=== PATIENT | male | born 1955 | race Caucasian/White ===

== ENCOUNTER 2025-02-19 13:02 | Inpatient (IN) | payer MEDICARE ==
[~2025-02-19] VITALS: Ht 182.9 cm; Wt 93.9 kg
[~2025-02-19 13:02] MED LIST: LISI10TA24 PO; PRED20TA3 PO
[2025-02-19 13:48] LABS: IMMATURE GRANULOCYTE ABSOLUTE 0.23 K/uL (0-1); NUCLEATED RED BLOOD CELLS 0.0 % (0.0-0.19); PLATELET COUNT (AUTO) 256 K/uL (130-400); RED BLOOD CELL COUNT(AUTO) 3.72 MIL/uL (4.50-6.20); RED CELL DISTRIBUTION WIDTH 16.9 % (11.0-15.5); WHITE BLOOD COUNT (AUTO) 6.8 K/uL (4.8-10.8)
[2025-02-19 13:57] LABS: CREATININE 1.3 mg/dL (0.5-1.3); GLOMERULAR FILTR. RATE CALC 60.0 mL/min (>90); GLUCOSE,RANDOM 145.0 mg/dL (70-105); SODIUM SERUM 141.0 mmol/L (136-145); UREA NITROGEN, BLOOD 24.0 mg/dL (7-18)
[2025-02-19] MEDS ORDERED: VANCOMYCIN KIT 1 GM/250 ML IV.KIT IV ONE (14:00)
[2025-02-19 14:02] LABS: ASPARTATE AMINOTRANSFERASE 20.0 U/L (10-37); TOTAL PROTEIN, SERUM 6.5 g/dL (6.0-8.3)
[2025-02-19 14:19] LABS: ERYTHROCYTE SEDIMENTATION RATE 38 MM/HR (0-20)
--- NOTE | 2025-02-19 15:32 | HMCIMG ---
EXAM: CR left foot, 3 View. CLINICAL HISTORY: infection COMPARISON: None provided. FINDINGS: BONES: No acute fracture or aggressive appearing osseous lesion. JOINTS: Mild degenerative joint disease changes first metatarsal phalangeal joint no dislocation. SOFT TISSUES: Dorsal soft tissue swelling IMPRESSION: 1. No acute osseous injury. 2. Mild degenerative joint disease of the first metatarsophalangeal joint. 3. Dorsal soft tissue swelling. /[place]
[2025-02-19] MEDS ORDERED: VANCOMYCIN PROTOCOL PER PHARMACY IV SCH (16:00)
--- NOTE | 2025-02-19 16:53 | HP ---
[facility] HISTORY AND PHYSICAL Date of Service: Feb 19, 2025 Time of Service: 16:38 HISTORY OF PRESENT ILLNESS: [Mr. Caleb Reina is a 69-year-old male who presents to the emergency department with complaints of severe pain and necrosis of the left fifth toe. The patient reports that the pain began approximately eight days ago, initially attributing it to a possible gout attack. Several days later, he stubbed his left pinky toe, after which he noticed progressive discoloration and necrosis of the toe, accompanied by worsening pain, which he rates as 30/10 in severity. He has a significant past medical history of myelodysplastic syndrome, diagnosed one year ago, and is currently under the care of Dr. Hubert Simms. He receives monthly chemotherapy but canceled his scheduled treatment today due to his current condition. The patient also reports that he has not refilled two of his regular medications after returning from a recent vacation. Over the past week, he has observed increasing swelling, redness, and in flammation of the left lower extremity. He denies current fever but endorses intermittent chills and subjective low-grade fevers over the past week. He denies any other complaints aside from the severe pain in the affected toe. In the emergency department, an X-ray of the left foot was performed, revealing soft tissue swelling, no acute osseous injury, mild degenerative changes of the first metatarsophalangeal joint, and dorsal tissue swelling. Evaluation noted plantar surface with black necrotic tissue/eschar. Surrounding tissue is red. Periwound is mild erythematous with dry and scaly. He has been referred to the hospitalist service for further evaluation and management. ] REVIEW OF SYSTEMS CONSTITUTIONAL: Denies fevers, chills, or night sweats. No unintentional weight loss reported. NEUROLOGICAL: Denies headache, amaurosis fugax, motor weakness, sensory deficit, vertigo/spinning sensation, gait abnormalities, or tremors. ENT: No hearing loss, otalgia, otorrhea, rhinitis, rhinorrhea, hoarseness, or sore throat. CARDIOVASCULAR: Denies any exertional angina, dyspnea on exertion, orthopnea, paroxysmal nocturnal dyspnea, palpitations, life-threatening arrhythmias, claudication. PULMONARY: Denies any shortness of breath, cough, phlegm/sputum, hemoptysis, pleuritic chest pain. SLEEP: Denies morning headaches, daytime somnolence or napping. Denies difficulty falling asleep, staying asleep, waking from sleep. Denies knowledge of snoring. GASTROINTESTINAL: Denies any type of dysphagia to either liquids or solids. Denies nausea, vomiting, pyrosis, early satiety, abdominal pain, diarrhea, constipation, or changes in stool consistency or caliber. Denies coffee-ground emesis, hematemesis, hematochezia, or melanotic stools. GENITOURINARY: Denies frequency, urgency, nocturia, hematuria or incontinence (Storage/Irritative symptoms.) Low urinary stream, straining to void, urinary intermittency or hesitancy, splitting of the voiding stream, terminal dribbling. ENDOCRINOLOGIC: Denies polyuria, polydipsia, polyphagia or heat/cold intolerances. HEMATOLOGIC: Denies thrombophilia/previous clots, or coagulopathy/bleeding disorders. ONCOLOGIC: Denies personal history of malignancy. DERMATOLOGIC: Denies rashes or pruritus. PSYCHIATRIC: Denies any suicidal or homicidal ideation. Denies hallucinations. PAST MEDICAL HISTORY: [MDS, Gout, HTN ] PAST SURGICAL HISTORY: [bilat thumb surgery from traum ] PAST SOCIAL HISTORY: [Patient drinks alcohol. Denies tobacco and illicit drug use. Patient lives in the [place]. He is under the care of Dr. Simms and currently on chemotherapy for his MDS ] FAMILY HISTORY: [Noncontributory ] Coded Allergies: Iodinated Contrast Media (Unverified Allergy, Unknown, 03/08/24) PHYSICAL EXAM GENERAL APPEARANCE: The patient is awake, alert, and oriented, in no acute cardiopulmonary distress. NEUROLOGICAL: Cranial nerves II-XII grossly intact. Motor is 5/5 in bilateral upper and lower extremities proximal to distal. No sensory deficits. HEENT: Face is symmetric. Pupils are equal and reactive. Extraocular movements are intact. NECK: Supple. No JVD. No thyromegaly. No submental, submandibular, pre- /postauricular, occipital or supraclavicular lymphadenopathy. CHEST: Normal chest expansion. No Telemetry. LUNGS: Absence of any rales, rhonchi or any wheezing. CARDIOVASCULAR: Regular. S1 and S2 normal. No appreciable rubs, murmurs or gallops. ABDOMEN: Soft, nontender, and nondistended. There is no rebound, voluntary guarding, or rigidity. : Deferred. No Swanson. EXTREMITIES: Non-edematous and not cyanotic. No clubbing. Good capillary refill. SKIN: No skin breakdown. Vital Sign (Last 24 Hours) 02/19/25 13:03 Temp 97.7 Pulse 70 Resp 18 B/P (MAP) 157/74 Pulse Ox 96 O2 Delivery Room Air LABS: Laboratory: Test 02/19/25 13:37 Range/Units White Blood Count 6.8 4.8-10.8 K/uL Red Blood Count 3.72 L 4.50-6.20 MIL/uL Hemoglobin 12.4 L 14.0-18.0 g/dL Hematocrit 39.2 L 42-54 % Mean Corpuscular Volume 105.4 H 79-99 fL Mean Corpuscular Hemoglobin 33.3 H 27.0-33.0 pg Mean Corpuscular Hemoglobin Concent 31.6 L 32.0-36.0 g/dL Red Cell Distribution Width 16.9 H 11.0-15.5 % Platelet Count 256 130-400 K/uL Mean Platelet Volume 11.0 H 7.5-10.5 fL Immature Granulocyte % (Auto) 3.4 H 0-1 % Neutrophils (%) (Auto) 76.5 40.0-77.0 % Lymphocytes (%) (Auto) 7.9 L 21.0-51.0 % Monocytes (%) (Auto) 11.6 3.0-13.0 % Eosinophils (%) (Auto) 0.3 0.0-8.0 % Basophils (%) (Auto) 0.3 0.0-5.0 % Neutrophils # (Auto) 5.2 1.8-7.7 K/uL Lymphocytes # (Auto) 0.5 L 1.0-4.8 K/uL Monocytes # (Auto) 0.8 0.1-1.0 K/uL Eosinophils # (Auto) 0.02 0.00-0.70 K/uL Basophils # (Auto) 0.02 0.00-0.20 K/uL Absolute Immature Granulocyte (auto 0.23 0-1 K/uL Nucleated Red Blood Cells 0.0 0.0-0.19 % White Cell Morphology Comment See comments Red Blood Cell Morphology See comments Erythrocyte Sedimentation Rate 38 H 0-20 MM/HR Sodium Level 141 136-145 mmol/L Potassium Level 4.3 3.5-5.1 mmol/L Chloride Level 103 101-111 mmol/L Carbon Dioxide Level 26 21-32 mmol/L Blood Urea Nitrogen 24 H 7-18 mg/dL Creatinine 1.3 0.5-1.3 mg/dL Glomerular Filtration Rate Calc 60 >90 mL/min Random Glucose 145 H 70-105 mg/dL Lactic Acid Level 2.5 0.8-2.5 mmol/L Total Calcium 8.9 8.5-10.1 mg/dL Total Bilirubin 0.4 0.2-1.0 mg/dL Direct Bilirubin 0.1 0.0-0.3 mg/dL Aspartate Amino Transf (AST/SGOT) 20 10-37 U/L Alanine Aminotransferase (ALT/SGPT) 32 12-78 U/L Alkaline Phosphatase 91 50-136 U/L Troponin I High Sensitivity 12 4-75 ng/L C-Reactive Protein, Quantitative 16.00 H 0.5-3.0 mg/L Total Protein 6.5 6.0-8.3 g/dL Albumin 3.2 L 3.5-5.0 g/dL Current Medications Medications (Trade) Dose Ordered Sig/Antonio Route PRN Reason Start Time Stop Time Status Last Admin Dose Admin Acetaminophen (TYLenol 325MG TAB) 650 mg Q4H PRN PO TEMPERATURE GREATER THAN 101.5 02/19/25 16:00 03/21/25 15:59 Acetaminophen (TYLenol 325MG TAB) 650 mg Q6H PRN PO MILD PAIN (1-3) 02/19/25 16:00 03/21/25 15:59 Morphine Sulfate (morPHINE 4MG SYG) 2 mg Q4H PRN IVP SEVERE PAIN (7-10) 02/19/25 16:00 02/26/25 15:59 Ondansetron HCl (zoFRAN 4MG INJ) 4 mg Q6H PRN IVP NAUSEA/VOMITING 02/19/25 16:00 03/21/25 15:59 Piperacillin Sod/ Tazobactam Sod (Zosyn 3.375gm+NS 50ml) 3.375 gm Q8H IVPB 02/19/25 16:00 03/01/25 15:59 Sodium Chloride (NS 50ml) 50 ml AD IV 02/19/25 23:00 02/26/25 23:00 Vancomycin HCl 250 ml @ 125 mls/hr Q24H IV 02/20/25 17:00 03/02/25 16:59 Vancomycin HCl (Vancomycin Protocol) 1 each AD IV 02/19/25 16:00 03/05/25 15:59 DIAGNOSTICS / RADIOLOGY: [[facility] [address] [place], [place] [id number] IMAGING REPORT Signed PATIENT: CALEB REINA MR#: [id number] : 1955 SEX: M AGE: 69 LOCATION: [facility] ORDER 22 STATUS: REG ER REPORT#: [id number] SERVICE 21 REASON: infection ORDERING PHYSICIAN: PATRIC MATUTE MD PROCEDURE: FT 3VW LT - FOOT COMP 3+VWS LT EXAM: CR left foot, 3 View. CLINICAL HISTORY: infection COMPARISON: None provided. FINDINGS: BONES: No acute fracture or aggressive appearing osseous lesion. JOINTS: Mild degenerative joint disease changes first metatarsal phalangeal joint no dislocation. SOFT TISSUES: Dorsal soft tissue swelling IMPRESSION: 1. No acute osseous injury. 2. Mild degenerative joint disease of the first metatarsophalangeal joint. 3. Dorsal soft tissue swelling. /[place] DICTATED BY: FARHAT ROBERTSON MD DATE: 02/19/251630 ELECTRONICALLY SIGNED BY: FARHAT ROBERTSON MD DATE: 02/19/251630 ] ASSESSMENT: [Acute left 5th toe necrosis with severe pain, likely secondary to trauma and possible underlying infection or vascular compromise, POA Myelodysplastic syndrome on chemotherapy (immunocompromised state), POA Missed Medications, POA Recent subjective fevers and chills, raising concerns for systemic infection POA No evidence of acute bony injury on imaging Digital gangrene (ischemic versus infectious) Cellulitis with possible progression to necrotizing soft tissue infection, POA Acute gout flare (less likely given necrosis and trauma history), POA Chemotherapy-immunosuppression contributing to poor wound healing and infection, POA ] PLAN: [Admit to medical-surgical floor for monitoring and management Initiate IV antibiotics with vancomycin and Zosyn per renal protocol Obtain wound and blood cultures, CBC, metabolic panel, and lactate Provide wound care and monitor for progression Consult Infectious Disease and Podiatry Consult Dr. Simms (hematology/oncology) due to history of myelodysplastic syndrome and ongoing chemotherapy; hold chemotherapy until infection is controlled Order venous Doppler of the left lower extremity to rule out DVT Order arterial Doppler to evaluate circulation Initiate GI and DVT prophylaxis Provide supportive care Review and resume home medications as appropriate Repeat labs tomorrow Patient is full code ADVANCED CARE PLANNING 1. Which of the following were discussed? Hospice Care - Yes / No Therapeutic options - Yes / No Advance Directives - Yes / No Other discussions - 2. Discussed with who? patient 3. Voluntary nature of this service was explained to the patient? Yes / No 4. Amount of time spent - __20 mins 5. Reviewed by Physician? (if this service was performed by NPP) Yes / No ATTESTATION BY PHYSICIAN I have seen and examined the patient. I reviewed the documentation, medical decision making, and treatment plan as noted by the mid-level provider above. I agree with the findings and plan of care. CARMEN PETER MD, [facility] Feb 19, 2025 16:52
--- NOTE | 2025-02-19 17:11 | ERN ---
ED Note History of Present Illness Stated Complaint: LEFT TOE CELLULITIS Chief Complaint: Wound Check Time Seen by MD: 13:04 Dictation: 69-year-old male diabetic hypertensive presenting to the emergency department after referral by primary care doctor for left foot infection that has been worsening patient reports she has been having swelling and redness over the past week but worsened this past few days. Allergies: Coded Allergies: Iodinated Contrast Media (Unverified Allergy, Unknown, 03/08/24) Home Meds Active Scripts Prednisone (Prednisone) 20 Mg Tablet, 20 MG PO DAILY for 7 Days, #7 TAB Prov:TORSTEN BONILLA AGPCNP 03/15/24 Prednisone (Prednisone) 20 Mg Tablet, 1 TAB PO BID for 7 Days, #10 TAB 0 Refills Prov:TORSTEN BONILLAPCSIDDHARTH 03/15/24 Lisinopril (Lisinopril) 10 Mg Tablet, 10 MG PO DAILY, #30 TAB 0 Refills Prov:TORSTEN BONILLA AGPCNP 03/15/24 Past Medical History Past Medical History: Hypertension Additional Past Medical Hx: MDS Surgical History: Other Surgical History Other: HAND SX. Review of System Dictation Constitutional: Negative for fever,chills, and weight loss Eyes: Negative for injury, pain,redness, and discharge ENT: Negative for injury,pain or swelling Cardiovascular: Negative for chest pain, palpitations, and edema Respiratory: Negative for shortness of breath, cough, and wheezing, Abdomen/GI: Negative for abdominal pain, nausea, vomiting, diarrhea, and constipation Back: Negative for injury and pain : Negative for injury, bleeding and discharge MS/Extremity: Negative for injury and deformity Skin: Per HPI Neuro: Negative for headache, weakness, numbness, tingling, and seizure Initial Vital Sign VS Vital Signs Date Time Temp Pulse Resp B/P (MAP) Pulse Ox O2 Delivery O2 Flow Rate FiO2 02/19/25 13:03 97.7 70 18 157/74 96 Room Air Physical Exam Dictation General: awake, alert, NAD Head/Face: Normocephalic, atraumatic Eyes: PERRL, EOMI, vision at baseline ENT: oral cavity clear, TMs clear, no signs of infection Neck: Trachea midline, supple, no nuchal rigidity Cardiovascular: RRR, normal S1/S2, No MRGs, no JVD Respiratory: CTAB, no respiratory distress, No rales or wheezes Abdomen: Soft, non-tender, non-distended, normal bowel sounds, no guarding or rebound. Skin: Warm, dry, normal turgor, no rash, left foot swelling and erythema MS/Extremity: Pulses equal, no cyanosis, neurovascular intact, FROM, left foot and ankle swelling and erythema Neuro: COAx4, GCS 15, strength 5/5, CN 2-12 intact, normal cerebellar exam, normal gait, Results (Laboratory/Radiology) Laboratory/Radiology Laboratory Tests Test 02/19/25 13:37 White Blood Count 6.8 K/uL (4.8-10.8) Red Blood Count 3.72 MIL/uL (4.50-6.20) L Hemoglobin 12.4 g/dL (14.0-18.0) L Hematocrit 39.2 % (42-54) L Mean Corpuscular Volume 105.4 fL (79-99) H Mean Corpuscular Hemoglobin 33.3 pg (27.0-33.0) H Mean Corpuscular Hemoglobin Concent 31.6 g/dL (32.0-36.0) L Red Cell Distribution Width 16.9 % (11.0-15.5) H Platelet Count 256 K/uL (130-400) Mean Platelet Volume 11.0 fL (7.5-10.5) H Immature Granulocyte % (Auto) 3.4 % (0-1) H Neutrophils (%) (Auto) 76.5 % (40.0-77.0) Lymphocytes (%) (Auto) 7.9 % (21.0-51.0) L Monocytes (%) (Auto) 11.6 % (3.0-13.0) Eosinophils (%) (Auto) 0.3 % (0.0-8.0) Basophils (%) (Auto) 0.3 % (0.0-5.0) Neutrophils # (Auto) 5.2 K/uL (1.8-7.7) Lymphocytes # (Auto) 0.5 K/uL (1.0-4.8) L Monocytes # (Auto) 0.8 K/uL (0.1-1.0) Eosinophils # (Auto) 0.02 K/uL (0.00-0.70) Basophils # (Auto) 0.02 K/uL (0.00-0.20) Absolute Immature Granulocyte (auto 0.23 K/uL (0-1) Nucleated Red Blood Cells 0.0 % (0.0-0.19) White Cell Morphology Comment See comments Red Blood Cell Morphology See comments Erythrocyte Sedimentation Rate 38 MM/HR (0-20) H Sodium Level 141 mmol/L (136-145) Potassium Level 4.3 mmol/L (3.5-5.1) Chloride Level 103 mmol/L (101-111) Carbon Dioxide Level 26 mmol/L (21-32) Blood Urea Nitrogen 24 mg/dL (7-18) H Creatinine 1.3 mg/dL (0.5-1.3) Glomerular Filtration Rate Calc 60 mL/min (>90) Random Glucose 145 mg/dL (70-105) H Lactic Acid Level 2.5 mmol/L (0.8-2.5) Total Calcium 8.9 mg/dL (8.5-10.1) Total Bilirubin 0.4 mg/dL (0.2-1.0) Direct Bilirubin 0.1 mg/dL (0.0-0.3) Aspartate Amino Transf (AST/SGOT) 20 U/L (10-37) Alanine Aminotransferase (ALT/SGPT) 32 U/L (12-78) Alkaline Phosphatase 91 U/L (50-136) Troponin I High Sensitivity 12 ng/L (4-75) C-Reactive Protein, Quantitative 16.00 mg/L (0.5-3.0) H Total Protein 6.5 g/dL (6.0-8.3) Albumin 3.2 g/dL (3.5-5.0) L Labs Reviewed?: Yes ED Course ED Course Orders Procedure Category Date Status Time Erythrocyte Sed Rate LAB 02/19/25 Complete 13:22 Crp Quantitative LAB 02/19/25 Complete 13:22 Basic Metabolic Panel LAB 02/19/25 Complete 13:22 Blood Cult PATTI 02/19/25 In Process 13:22 Cbc With Differential LAB 02/19/25 Complete 13:22 Hepatic Function Panel LAB 02/19/25 Complete 13:22 Lactic Acid LAB 02/19/25 Complete 13:22 Troponin I High LAB 02/19/25 Complete Sensitivity 13:22 Foot Comp 3+Vws Lt RAD 02/19/25 Resulted 13:22 Zosyn 3.375gm+Ns 50ml PHA 02/19/25 Complete (Zosyn 3.375gm+Ns 14:00 Vancomycin 1g/250ml PHA 02/19/25 Complete Kit (Vancomycin 1g/2 14:00 Admit Orders ADM 02/19/25 Transmitted 15:35 Podiatry Consult CONPHYSVC 02/19/25 Transmitted 15:41 Infectious Disease CONPHYSVC 02/19/25 Transmitted Consult 15:41 Cbc With Differential LAB 02/20/25 Verified 04:00 Comprehensive LAB 02/20/25 Verified Metabolic Panel 04:00 Crp Quantitative LAB 02/20/25 Verified 04:00 Vancomycin Protocol PHA 02/19/25 In Process (Vancomycin Protocol 16:00 Zosyn 3.375gm+Ns 50ml PHA 02/19/25 In Process (Zosyn 3.375gm+Ns 16:00 0.9%Nacl 50ml (Ns PHA 02/19/25 In Process 50ml) 23:00 Acetaminophen 325 Tab PHA 02/19/25 In Process (Tylenol 325mg Tab 16:00 Acetaminophen 325 Tab PHA 02/19/25 In Process (Tylenol 325mg Tab 16:00 Ondansetron 4mg Inj PHA 02/19/25 In Process (Zofran 4mg Inj) 16:00 Morphine 4mg Syg PHA 02/19/25 In Process (Morphine 4mg Syg) 16:00 Vancomycin Trough LAB 02/22/25 Verified 16:00 Vancomycin 2gm/500 Ml PHA 02/19/25 In Process Bag (Vancomycin 2g 17:00 Vancomycin 1.5 Gm/250 PHA 02/20/25 In Process Ml Bag (Vancomycin 17:00 Us Arterial Bilat Low US 02/19/25 Logged Ext Dupl 16:35 Us Venous Doppler US 02/19/25 Logged Unilateral 16:35 Lactic Acid (Removed) LAB 02/19/25 Logged 16:50 Current Medications Medications (Trade) Dose Ordered Sig/Antonio Route PRN Reason Start Time Stop Time Status Last Admin Dose Admin Piperacillin Sod/ Tazobactam Sod (Zosyn 3.375gm+NS 50ml) 3.375 gm ONCE ONCE IV 02/19/25 14:00 02/19/25 14:01 DC Vancomycin HCl (Vancomycin 1g/ 250ml Kit) 1 gm ONCE ONCE IV 02/19/25 14:00 02/19/25 14:01 DC Vital Signs Date Time Temp Pulse Resp B/P (MAP) Pulse Ox O2 Delivery O2 Flow Rate FiO2 02/19/25 13:03 97.7 70 18 157/74 96 Room Air Medical Decision Making MDM MDM: Differential diagnosis: Rationale: Tests considered and ordered secondary to shared decision making include: labs, ECG and radiology Previous outside records reviewed: Old ER visits. Risk of complication and/or morbidity or mortality of patient management: None Medications-Per medication reconciliation Need for hospitalization: Patient does meet criteria for hospitalization. Need for emergency major/minor surgery: No There are no social concerns with this patient. Prescription drug management Prescriptions will include symptomatic care Patient's prior external medical records from other ER visits were reviewed by me as indicated. Prior testing and results from previous visits were reviewed. Prior tests were taken into account with medical decision making and resource utilization, independent historian/historians were used to obtain complete medical history. I independently interpreted the test that were performed, results were reviewed by me and considered findings on radiology if ordered. Medical management and examination interpretation discussions were had by me with other qualified healthcare professionals as indicated for the patient's care. 69-year-old male with left foot cellulitis concern for worsening infection started on broad-spectrum antibiotics DX & DISP Disposition: Inpatient Departure Impression: Primary Impression: Cellulitis of left foot Condition: Stable Referrals: VIVEK GOULD (PCP) PATRIC MATUTE MD Feb 19, 2025 17:11
--- NOTE | 2025-02-19 17:32 | NUR ---
US AT BEDSIDE
[2025-02-19] MEDS: ZOSYN 3.375GM +NS 50ML IV ONE (17:56)
[2025-02-19] MEDS: ZOSYN 3.375GM +NS 50ML IVPB SCH (18:02)
--- NOTE | 2025-02-19 18:08 | NUR ---
SPOKE TO DR OCONNOR FOR PODIATRY CONSULT HE WILL SEE PATIENT TOMORROW NO NEW ORDERS AT THIS TIME
--- NOTE | 2025-02-19 18:10 | NUR ---
DR CHAPMAN AWARE OF INFECTIOUS CONSULT
--- NOTE | 2025-02-19 18:35 | HMCIMG ---
EXAM: US for Deep Venous Thrombosis, leftLower Extremity. CLINICAL HISTORY: Leg Pain and Swelling TECHNIQUE: Real-time ultrasound scan of the veins of the left lower extremity with color Doppler flow, spectral waveform analysis and compression. COMPARISON: None provided. FINDINGS: DEEP VEINS: The common femoral, superficial femoral, and popliteal veins are echolucent and compressible. There is normal color Doppler flow throughout. The visualized calf veins appear patent. SOFT TISSUES: No popliteal fossa cyst or other abnormalities. IMPRESSION: No deep venous thrombosis evident on left lower extremity examination. /[place]
[2025-02-19] MEDS: VANCOMYCIN 2GM/500 ML BAG 500 ML IV ONE (18:56)
[2025-02-19] MEDS ORDERED: ALLO300T2 PO (20:59)
[2025-02-19] MEDS ORDERED: 0.9%NACL 50ML IV SCH (23:00)
[2025-02-19 23:30] VITALS: O2SAT 96
[2025-02-19 23:45] VITALS: BP 125/83; PULSE 108; RESP 19; TEMP 98.6
[2025-02-20] VITALS (8 sets, daily range): BP systolic 117–143; BP diastolic 63–78; PULSE 72–132; RESP 17–21; TEMP 98.1–100.8; O2SAT 94–95
[2025-02-20 04:17] LABS: IMMATURE GRANULOCYTE ABSOLUTE 0.42 K/uL (0-1); NUCLEATED RED BLOOD CELLS 0.0 % (0.0-0.19); PLATELET COUNT (AUTO) 243 K/uL (130-400); RED BLOOD CELL COUNT(AUTO) 3.82 MIL/uL (4.50-6.20); RED CELL DISTRIBUTION WIDTH 16.9 % (11.0-15.5); WHITE BLOOD COUNT (AUTO) 8.6 K/uL (4.8-10.8)
[2025-02-20 04:36] LABS: ASPARTATE AMINOTRANSFERASE 22.0 U/L (10-37); CREATININE 1.0 mg/dL (0.5-1.3); GLOMERULAR FILTR. RATE CALC 82.0 mL/min (>90); GLUCOSE,RANDOM 95.0 mg/dL (70-105); SODIUM SERUM 138.0 mmol/L (136-145); TOTAL PROTEIN, SERUM 6.5 g/dL (6.0-8.3); UREA NITROGEN, BLOOD 19.0 mg/dL (7-18)
--- NOTE | 2025-02-20 07:57 | HMCIMG ---
EXAMINATION: DUPLEX ULTRASOUND EXAMINATION OF THE BILATERAL LOWER EXTREMITY ARTERIES. CLINICAL HISTORY: Check PAD. COMPARISON: None. FINDINGS: Peak systolic velocities within the right lower arteries are as follows: Common femoral artery: 62 cm/s. Superficial femoral artery: 22 cm/s at mid and 22 cm/s at distal segments. No flow at proximal segment. Popliteal artery: 44 cm/s at proximal and 30 cm/s at distal segments. Posterior tibial artery: 27 cm/s. Anterior tibial artery: 31 cm/s. Dorsalis pedis artery: 43 cm/s. The right lower limb arteries demonstrate biphasic to monophasic waveforms in all arteries except the proximal superficial femoral artery which demonstrate no flow. Peak systolic velocities within the left lower arteries are as follows: Common femoral artery: 76 cm/s. Superficial femoral artery: 55 cm/s at proximal, 247 cm/s at mid, and 68 cm/s at distal segments. Popliteal artery: 75 cm/s at proximal and 72 cm/s at distal segments. Posterior tibial artery: 101 cm/s. Anterior tibial artery: 36 cm/s. Dorsalis pedis artery: 70 cm/s. The left lower limb arteries demonstrate biphasic to monophasic waveforms in all arteries except the distal superficial femoral artery which demonstrates triphasic waveform. There is intimal wall thickening in both the lower limb arteries. There is a calcified plaque in the left mid superficial femoral artery causing about 60% to 70% diameter stenosis. There is raised velocity in the left mid superficial femoral artery. IMPRESSION: Mild intimal wall thickening in both the lower limb arteries. No flow in the right proximal superficial femoral artery. Remainder of the right lower limb arteries demonstrate biphasic to monophasic waveforms in all arteries. The left lower limb arteries demonstrate biphasic to monophasic waveforms in all arteries except the distal superficial femoral artery which demonstrates triphasic waveform. Calcified plaque in the left mid superficial femoral artery causing about 60% to 70% diameter stenosis. Raised velocity in the left mid superficial femoral artery. Recommend CT/MR angiogram. /[place]
--- NOTE | 2025-02-20 09:24 | NUR ---
DCP:HOME Pt currently lives with his Alaina Reina [phone]. Pt does not have any DME, home health, or provider services. Pt states that he is able to complete ADLs independently. PCP is Dr. Lashae Milner and uses [facility] for any RX needs. At [place] pt will want to go home and family can assist with transportation. Addendum: 02/20/25 at 0926 by FARHAT HAMMOND SS Amended: Links added.
--- NOTE | 2025-02-20 11:21 | CONS ---
CONSULTATION NOTE Date of Service: Feb 20, 2025 Reason for Consultation: 69 years old male gangrene 5th toe resulted from injury to the toe recently. Requesting Physician: Dr. Weeks HISTORY OF PRESENT ILLNESS: Patient stated that he injured his toe recently at home if fail to heal becoming more painful inflamed history of developing fevers and presented to the emergency room at the time which was admitted to the hospital secondary to cellulitis and gangrenous 5th toe. The patient has a history of MDS. He also has a history of gout which patient stated that he felt this was a gout attack. REVIEW OF SYSTEMS CONSTITUTIONAL: Positive fevers, denies chills, or fatigue. Pain in the foot especially upon elevation. HEAD/FACE: No signs of trauma. EENT: Denies eye pain, blurred vision, double vision, or light sensitivity. RESPIRATORY: Denies shortness of breath, cough, wheezing CARDIOVASCULAR: Denies chest pain, palpitation, syncope. Toes on left foot blanching upon elevation and rubor upon dependency. GASTROINTESTINAL/ABDOMINAL: Denies abdominal pain, constipation, diarrhea, nausea or vomiting GENITOURINARY: Denies dysuria or hematuria. MUSCULOSKELETAL: Denies joint pain, tenderness, or trauma. INTEGUMENTARY: 5th toe gangrene left cellulitis left foot NEUROLOGICAL/PSYCH: Denies anxiety, depression, heat or cold intolerance. PAST MEDICAL HISTORY: MDS Gout PAST SURGICAL HISTORY: Hand surgery PAST SOCIAL HISTORY: History of smoker stopped in 2013 FAMILY HISTORY: Noncontributory Coded Allergies: Iodinated Contrast Media (Unverified Allergy, Unknown, 03/08/24) PHYSICAL EXAM EYES: Anicteric. Pupils equal and reactive. HENT: No oral thrush seen, moist Oral mucosa NECK: Supple, no JVD or thyromegaly. LUNGS: Good air entry. No rales, no rhonchi. CARDIOVASCULAR: S1, S2 regular. No murmur heard. Nonpalpable pulses of the foot by hand. Left foot diminished velocities on arterial duplex. ABDOMEN: Soft, non tender, bowel sounds present, no organomegaly CENTRAL NERVOUS SYSTEM: Awake, alert, oriented x 3. No focal deficits. SKIN: Cellulitis to the left foot with a gangrene 5th toe left foot LYMPHATICS: No peripheral lymphadenopathy MUSCULOSKELETAL: No joint swelling, erythema or tenderness. EXTREMITIES: Blanching of toes upon elevation rubor upon dependency. BACK: No deformity, no pressure ulcer. GENITOURINARY: No dysuria or hematuria Vital Sign (Last 24 Hours) 02/19/25 02/20/25 23:30 08:00 Temp 100.2 Pulse 98 Resp 19 B/P (MAP) 143/64 Pulse Ox 94 O2 Delivery Room Air O2 Flow Rate 0 FiO2 21 Intake & Output (last 24hrs) 02/19/25 02/19/25 02/20/25 15:00 23:00 07:00 Intake Total 860.0 ml Balance 860.0 ml LABS: Laboratory: Test 02/20/25 03:34 02/19/25 19:41 02/19/25 18:01 02/19/25 13:37 Range/Units White Blood Count 8.6 # 4.8-10.8 K/uL Red Blood Count 3.82 L 4.50-6.20 MIL/uL Hemoglobin 12.6 L 14.0-18.0 g/dL Hematocrit 39.4 L 42-54 % Mean Corpuscular Volume 103.1 H 79-99 fL Mean Corpuscular Hemoglobin 33.0 27.0-33.0 pg Mean Corpuscular Hemoglobin Concent 32.0 32.0-36.0 g/dL Red Cell Distribution Width 16.9 H 11.0-15.5 % Platelet Count 243 130-400 K/uL Mean Platelet Volume 11.2 H 7.5-10.5 fL Immature Granulocyte % (Auto) 4.9 H 0-1 % Neutrophils (%) (Auto) 72.6 40.0-77.0 % Lymphocytes (%) (Auto) 4.3 L 21.0-51.0 % Monocytes (%) (Auto) 17.4 H 3.0-13.0 % Eosinophils (%) (Auto) 0.2 0.0-8.0 % Basophils (%) (Auto) 0.6 0.0-5.0 % Neutrophils # (Auto) 6.2 1.8-7.7 K/uL Lymphocytes # (Auto) 0.4 L 1.0-4.8 K/uL Monocytes # (Auto) 1.5 H 0.1-1.0 K/uL Eosinophils # (Auto) 0.02 0.00-0.70 K/uL Basophils # (Auto) 0.05 0.00-0.20 K/uL Absolute Immature Granulocyte (auto 0.42 0-1 K/uL Nucleated Red Blood Cells 0.0 0.0-0.19 % Sodium Level 138 136-145 mmol/L Potassium Level 3.7 3.5-5.1 mmol/L Chloride Level 102 101-111 mmol/L Carbon Dioxide Level 23 21-32 mmol/L Blood Urea Nitrogen 19 H 7-18 mg/dL Creatinine 1.0 0.5-1.3 mg/dL Glomerular Filtration Rate Calc 82 >90 mL/min Random Glucose 95 70-105 mg/dL Total Calcium 8.9 8.5-10.1 mg/dL Total Bilirubin 0.7 # 0.2-1.0 mg/dL Aspartate Amino Transf (AST/SGOT) 22 10-37 U/L Alanine Aminotransferase (ALT/SGPT) 31 12-78 U/L Alkaline Phosphatase 102 50-136 U/L C-Reactive Protein, Quantitative 19.30 H 0.5-3.0 mg/L Total Protein 6.5 6.0-8.3 g/dL Albumin 3.3 L 3.5-5.0 g/dL Procalcitonin 0.94 H 0.05-0.5 ng/mL Whole Blood Glucose 132 H 70-110 MG/DL Lactic Acid Level 1.3 0.8-2.5 mmol/L White Cell Morphology Comment See comments Red Blood Cell Morphology See comments Erythrocyte Sedimentation Rate 38 H 0-20 MM/HR Direct Bilirubin 0.1 0.0-0.3 mg/dL Troponin I High Sensitivity 12 4-75 ng/L DIAGNOSTICS / RADIOLOGY: [ ] ASSESSMENT: Gangrene 5th toe left foot with cellulitis Peripheral vascular disease PLAN: Continued IV antibiotics local wound care. Cardiovascular consultation requested for evaluation lower extremity circulation. We will continue follow up been future plan for amputation of the 5th toe due to gangrene. Case was explained to the patient discussion with the future plans was done he agrees to the treatment plan at this time we will follow up tomorrow. HOA OCONNOR DPM Feb 20, 2025 11:21
--- NOTE | 2025-02-20 15:57 | NUR ---
PT DOES NOT WANT TO GO TO CTA TODAY, STATED HIS WILL BE HERE IN A.M. TOMORROW AND WANTS TO SPEAK WITH MD WITH AT BEDSIDE. MD NOTIFIED.
--- NOTE | 2025-02-20 16:03 | CONS ---
[facility] CONSULTATION REPORT Cardiology consultation note dictated for Fide Adhikari MD Date Patient Seen: Feb 20, 2025 Requesting Physician: Khoa Dean DPM Reason for Consultation: PAD History of Present Illness: This is a 69-year-old male with a past medical history of hypertension, MDS on chemotherapy followed by Dr. Simms, and gout who presented to the ED for further evaluation of left 5th toe necrosis. Cardiology has been consulted for PAD. The patient endorsed an 8 day onset of left foot discomfort. During such time, he stubbed his fifth toe and noticed it gradually became red, swollen, discolored, painful, and developed perceived fever but did not check his temperature. Bilateral lower extremity arterial Doppler on 02/19/2025- left lower limb art eries demonstrate biphasic to monophasic waveforms in all arteries except the distal superficial femoral artery which demonstrates triphasic waveform. Calcified plaque in the left mid superficial femoral artery causing about 60% to 70% diameter stenosis. No flow in the right proximal superficial femoral artery, remainder of the right lower limb arteries demonstrate biphasic to monophasic waveforms in all arteries. Left lower extremity venous Doppler on 02/19/2025 was negative for DVT. Past Medical History: As per HPI and summarized below Past Surgical History: Bilateral thumb surgery Family History: Refer to chart Social History: The patient lives with family. Habits: The patient denies alcohol, tobacco, or illicit drug use. Home Meds: Allopurinol 300 mg daily Lisinopril 10 mg daily Current Meds: Medications Dose Ordered Sig/Antonio Start Time Stop Time Status Last Admin Vancomycin HCl 1 each AD 02/19/25 16:00 03/05/25 15:59 Piperacillin Sod/ Tazobactam Sod 3.375 gm Q8H 02/19/25 16:00 03/01/25 15:59 02/20/25 09:30 Acetaminophen 650 mg Q4H PRN 02/19/25 16:00 03/21/25 15:59 Acetaminophen 650 mg Q6H PRN 02/19/25 16:00 03/21/25 15:59 Ondansetron HCl 4 mg Q6H PRN 02/19/25 16:00 03/21/25 15:59 Morphine Sulfate 2 mg Q4H PRN 02/19/25 16:00 02/26/25 15:59 02/20/25 13:08 Vancomycin HCl 250 ml @ 125 mls/hr Q24H 02/20/25 17:00 03/02/25 16:59 Acetaminophen/ Codeine Phosphate 2 tab Q4H PRN 02/20/25 11:30 03/22/25 11:29 02/20/25 14:21 Aspirin 81 mg DAILY 02/21/25 09:00 03/23/25 08:59 Atorvastatin Calcium 40 mg HS 02/20/25 21:00 03/22/25 20:59 Clopidogrel Bisulfate 75 mg DAILY 02/21/25 09:00 03/23/25 08:59 Methylprednisolone Sodium Succinate 40 mg DAILY 02/20/25 15:00 03/22/25 14:59 Review of Systems: CONST: No fatigue, or weight changes. Admits to fever. EYES: No recent vision problems. ENT: No congestion, ear pain, or sore throat. C/V: No chest pain, palpitations, or edema. RESP: No cough, congestion, wheezing or shortness of breath. GI: No abdominal pain, nausea, vomiting, constipation, or diarrhea. : No incontinence or dysuria. SKIN: Admits to left lower extremity discomfort. NEURO: No headache, focal numbness or weakness, dizziness, or seizures. PSYCH: No depression or anxiety. HEME: No abnormal bruising or bleeding. LYMPH: No swollen glands. Physical Examination: GENERAL: No acute distress. HEAD: Normal with no signs of head trauma. EYES: PERRLA, EOMI, conjunctiva and sclera normal. ENT: Hearing grossly intact, normal oropharynx. NECK: Supple without JVD. There is no tenderness, lymphadenopathy, or masses. No thyromegaly. Normal carotid upstrokes without bruits. LUNGS: Clear breath sounds bilaterally. No wheezes, or rhonchi. HEART: Normal rate and rhythm. Normal S1 and S2 without murmurs, gallop or rub. VASC: Bilateral DP and PT pulses by Doppler. ABD: Bowel sounds normal, soft, nontender, no masses, no organomegaly. No audible bruits. : Not examined LYMPH: No lymphadenopathy noted. EXT: Left lower extremity with erythema, edema, warmth to touch, and left 5th toe with dry necrosis. NEURO: Awake, alert, and oriented x3. No focal sensory or strength deficits noted. Vital Signs (last 8hr) Date Time Temp Pulse Resp B/P (MAP) Pulse Ox O2 Delivery O2 Flow Rate FiO2 02/20/25 12:00 98.2 88 21 117/74 93 Room Air 02/20/25 08:00 100.2 98 19 143/64 94 Room Air Laboratory: Hematology Labs: Test 02/20/25 03:34 02/19/25 13:37 Range/Units White Blood Count 8.6 # 4.8-10.8 K/uL Red Blood Count 3.82 L 4.50-6.20 MIL/uL Hemoglobin 12.6 L 14.0-18.0 g/dL Hematocrit 39.4 L 42-54 % Mean Corpuscular Volume 103.1 H 79-99 fL Mean Corpuscular Hemoglobin 33.0 27.0-33.0 pg Mean Corpuscular Hemoglobin Concent 32.0 32.0-36.0 g/dL Red Cell Distribution Width 16.9 H 11.0-15.5 % Platelet Count 243 130-400 K/uL Mean Platelet Volume 11.2 H 7.5-10.5 fL Immature Granulocyte % (Auto) 4.9 H 0-1 % Neutrophils (%) (Auto) 72.6 40.0-77.0 % Lymphocytes (%) (Auto) 4.3 L 21.0-51.0 % Monocytes (%) (Auto) 17.4 H 3.0-13.0 % Eosinophils (%) (Auto) 0.2 0.0-8.0 % Basophils (%) (Auto) 0.6 0.0-5.0 % Neutrophils # (Auto) 6.2 1.8-7.7 K/uL Lymphocytes # (Auto) 0.4 L 1.0-4.8 K/uL Monocytes # (Auto) 1.5 H 0.1-1.0 K/uL Eosinophils # (Auto) 0.02 0.00-0.70 K/uL Basophils # (Auto) 0.05 0.00-0.20 K/uL Absolute Immature Granulocyte (auto 0.42 0-1 K/uL Nucleated Red Blood Cells 0.0 0.0-0.19 % White Cell Morphology Comment See comments Red Blood Cell Morphology See comments Erythrocyte Sedimentation Rate 38 H 0-20 MM/HR Chemistry Labs: Test 02/20/25 03:34 02/19/25 19:41 02/19/25 18:01 02/19/25 13:37 Range/Units Sodium Level 138 136-145 mmol/L Potassium Level 3.7 3.5-5.1 mmol/L Chloride Level 102 101-111 mmol/L Carbon Dioxide Level 23 21-32 mmol/L Blood Urea Nitrogen 19 H 7-18 mg/dL Creatinine 1.0 0.5-1.3 mg/dL Glomerular Filtration Rate Calc 82 >90 mL/min Random Glucose 95 70-105 mg/dL Total Calcium 8.9 8.5-10.1 mg/dL Total Bilirubin 0.7 # 0.2-1.0 mg/dL Aspartate Amino Transf (AST/SGOT) 22 10-37 U/L Alanine Aminotransferase (ALT/SGPT) 31 12-78 U/L Alkaline Phosphatase 102 50-136 U/L C-Reactive Protein, Quantitative 19.30 H 0.5-3.0 mg/L Total Protein 6.5 6.0-8.3 g/dL Albumin 3.3 L 3.5-5.0 g/dL Procalcitonin 0.94 H 0.05-0.5 ng/mL Whole Blood Glucose 132 H 70-110 MG/DL Lactic Acid Level 1.3 0.8-2.5 mmol/L Direct Bilirubin 0.1 0.0-0.3 mg/dL Troponin I High Sensitivity 12 4-75 ng/L Diagnostics / Radiology: Impression and Plan: PAD, left fifth toe necrosis HTN MDS on chemotherapy followed by Dr. Mendez Feng IODINATED CONTRAST ALLERGY PAD, Travis category V symptoms, left fifth toe necrosis Bilateral lower extremity arterial Doppler on 02/19/2025- left lower limb arteries demonstrate biphasic to monophasic waveforms in all arteries except the distal superficial femoral artery which demonstrates triphasic waveform. Calcified plaque in the left mid superficial femoral artery causing about 60% to 70% diameter stenosis. No flow in the right proximal superficial femoral artery, remainder of the right lower limb arteries demonstrate biphasic to monophasic waveforms in all arteries. -Initiate Aspirin, Atorvastatin and Plavix -Further recommendations pending discussion with Dr. Lizet Adhikari, premedication needed if CTA with runoff and/or peripheral angiogram procedure is needed as the patient has an iodinated contrast allergy ATTESTATION BY PHYSICIAN I have reviewed the above documentation, participated in medical decision making, made necessary modifications, and agree with the treatment plan as documented by my mid-level provider above. Considering invasive evaluation and possible intervention, further discussion with the patient in a.m. MD MALLY Ivey [facility] Feb 20, 2025 16:03 FIDE ADHIKARI MD Feb 20, 2025 21:45
--- NOTE | 2025-02-20 16:49 | PN ---
[facility] PROGRESS NOTE Date of Service: Feb 20, 2025 Time of Service: 15:54 SUBJECTIVE: Mr. Murray Reina is a 69-year-old male who presents to the emergency department with complaints of severe pain and necrosis of the left fifth toe. The patient reports that the pain began approximately eight days ago, initially attributing it to a possible gout attack. Several days later, he stubbed his left pinky toe, after which he noticed progressive discoloration and necrosis of the toe, accompanied by worsening pain, which he rates as 30/10 in severity. He has a significant past medical history of myelodysplastic syndrome, diagnosed one year ago, and is currently under the care of Dr. Hubert Simms. He receives monthly chemotherapy but canceled his scheduled treatment today due to his current condition. The patient also reports that he has not refilled two of his regular medications after returning from a recent vacation. Over the past week, he has observed increasing swelling, redness, and inflammation of the left lower extremity. He denies current fever but endorses intermittent chills and subjective low-grade fevers over the past week. He denies any other complaints aside from the severe pain in the affected toe. In the emergency department, an X-ray of the left foot was performed, revealing soft tissue swelling, no acute osseous injury, mild degenerative changes of the first metatarsophalangeal joint, and dorsal tissue swelling. Evaluation noted plantar surface with black necrotic tissue/eschar. Surrounding tissue is red. Periwound is mild erythematous with dry and scaly. He has been referred to the hospitalist service for further evaluation and management. 02/20/2025: He was evaluated at the bedside this morning. He is AAO x3 he complained of pain in his left foot which has slightly improved. The black necrotic eschar was noted on his left 5th toe. Remarkable lab is for ESR 38, CRP 16, procalcitonin 0.94, lactate 2.5, creatinine 1.3. potassium 3.7. Atrial ultrasound revealed 60-70% left mid superficial artery stenosis with no flow in right proximal superficial artery. Cardiology is consulted for the necessary intervention the peripheral artery disease leading to dry gangrene of left 5th toe. ID consulted for possible sepsis. Podiatry consulted for the gangrenous left foot. Rest of the plan as discussed below REVIEW OF SYSTEMS CONSTITUTIONAL: Denies fevers, chills, or night sweats. No unintentional weight loss reported. NEUROLOGICAL: Denies headache, amaurosis fugax, motor weakness, sensory deficit, vertigo/spinning sensation, gait abnormalities, or tremors. ENT: No hearing loss, otalgia, otorrhea, rhinitis, rhinorrhea, hoarseness, or sore throat. CARDIOVASCULAR: Denies any exertional angina, dyspnea on exertion, orthopnea, paroxysmal nocturnal dyspnea, palpitations, life-threatening arrhythmias, claudication. PULMONARY: Denies any shortness of breath, cough, phlegm/sputum, hemoptysis, pleuritic chest pain. SLEEP: Denies morning headaches, daytime somnolence or napping. Denies difficulty falling asleep, staying asleep, waking from sleep. Denies knowledge of snoring. GASTROINTESTINAL: Denies any type of dysphagia to either liquids or solids. Denies nausea, vomiting, pyrosis, early satiety, abdominal pain, diarrhea, constipation, or changes in stool consistency or caliber. Denies coffee-ground emesis, hematemesis, hematochezia, or melanotic stools. GENITOURINARY: Denies frequency, urgency, nocturia, hematuria or incontinence (Storage/Irritative symptoms.) Low urinary stream, straining to void, urinary intermittency or hesitancy, splitting of the voiding stream, terminal dribbling. ENDOCRINOLOGIC: Denies polyuria, polydipsia, polyphagia or heat/cold intolerances. HEMATOLOGIC: Denies thrombophilia/previous clots, or coagulopathy/bleeding disorders. ONCOLOGIC: Denies personal history of malignancy. DERMATOLOGIC: Denies rashes or pruritus. PSYCHIATRIC: Denies any suicidal or homicidal ideation. Denies hallucinations. PHYSICAL EXAM GENERAL APPEARANCE: The patient is awake, alert, and oriented, in no acute cardiopulmonary distress. NEUROLOGICAL: Cranial nerves II-XII grossly intact. Motor is 5/5 in bilateral upper and lower extremities proximal to distal. No sensory deficits. HEENT: Face is symmetric. NECK: Supple. No JVD. No thyromegaly. CHEST: Normal chest expansion. No Telemetry. LUNGS: Absence of any rales, rhonchi or any wheezing. CARDIOVASCULAR: Regular. S1 and S2 normal. No appreciable rubs, murmurs or gallops. ABDOMEN: Soft, nontender, and nondistended. There is no rebound, voluntary guarding, or rigidity. : Deferred. No Swanson. EXTREMITIES: Necrotic gangrenous left 5th toe, SKIN: No skin breakdown. Vital Signs (last 8hr) Date Time Temp Pulse Resp B/P (MAP) Pulse Ox O2 Delivery O2 Flow Rate FiO2 02/20/25 12:00 98.2 88 21 117/74 93 Room Air 02/20/25 08:00 100.2 98 19 143/64 94 Room Air LABS: Laboratory: Test 02/20/25 03:34 02/19/25 19:41 02/19/25 18:01 02/19/25 13:37 Range/Units White Blood Count 8.6 # 4.8-10.8 K/uL Red Blood Count 3.82 L 4.50-6.20 MIL/uL Hemoglobin 12.6 L 14.0-18.0 g/dL Hematocrit 39.4 L 42-54 % Mean Corpuscular Volume 103.1 H 79-99 fL Mean Corpuscular Hemoglobin 33.0 27.0-33.0 pg Mean Corpuscular Hemoglobin Concent 32.0 32.0-36.0 g/dL Red Cell Distribution Width 16.9 H 11.0-15.5 % Platelet Count 243 130-400 K/uL Mean Platelet Volume 11.2 H 7.5-10.5 fL Immature Granulocyte % (Auto) 4.9 H 0-1 % Neutrophils (%) (Auto) 72.6 40.0-77.0 % Lymphocytes (%) (Auto) 4.3 L 21.0-51.0 % Monocytes (%) (Auto) 17.4 H 3.0-13.0 % Eosinophils (%) (Auto) 0.2 0.0-8.0 % Basophils (%) (Auto) 0.6 0.0-5.0 % Neutrophils # (Auto) 6.2 1.8-7.7 K/uL Lymphocytes # (Auto) 0.4 L 1.0-4.8 K/uL Monocytes # (Auto) 1.5 H 0.1-1.0 K/uL Eosinophils # (Auto) 0.02 0.00-0.70 K/uL Basophils # (Auto) 0.05 0.00-0.20 K/uL Absolute Immature Granulocyte (auto 0.42 0-1 K/uL Nucleated Red Blood Cells 0.0 0.0-0.19 % Sodium Level 138 136-145 mmol/L Potassium Level 3.7 3.5-5.1 mmol/L Chloride Level 102 101-111 mmol/L Carbon Dioxide Level 23 21-32 mmol/L Blood Urea Nitrogen 19 H 7-18 mg/dL Creatinine 1.0 0.5-1.3 mg/dL Glomerular Filtration Rate Calc 82 >90 mL/min Random Glucose 95 70-105 mg/dL Total Calcium 8.9 8.5-10.1 mg/dL Total Bilirubin 0.7 # 0.2-1.0 mg/dL Aspartate Amino Transf (AST/SGOT) 22 10-37 U/L Alanine Aminotransferase (ALT/SGPT) 31 12-78 U/L Alkaline Phosphatase 102 50-136 U/L C-Reactive Protein, Quantitative 19.30 H 0.5-3.0 mg/L Total Protein 6.5 6.0-8.3 g/dL Albumin 3.3 L 3.5-5.0 g/dL Procalcitonin 0.94 H 0.05-0.5 ng/mL Whole Blood Glucose 132 H 70-110 MG/DL Lactic Acid Level 1.3 0.8-2.5 mmol/L White Cell Morphology Comment See comments Red Blood Cell Morphology See comments Erythrocyte Sedimentation Rate 38 H 0-20 MM/HR Direct Bilirubin 0.1 0.0-0.3 mg/dL Troponin I High Sensitivity 12 4-75 ng/L Current Medications Medications (Trade) Dose Ordered Sig/Antonio Route PRN Reason Start Time Stop Time Status Last Admin Dose Admin Acetaminophen (TYLenol 325MG TAB) 650 mg Q4H PRN PO TEMPERATURE GREATER THAN 101.5 02/19/25 16:00 03/21/25 15:59 Acetaminophen (TYLenol 325MG TAB) 650 mg Q6H PRN PO MILD PAIN (1-3) 02/19/25 16:00 03/21/25 15:59 Acetaminophen/ Codeine Phosphate (TYLenol-coDEINE TAB) 2 tab Q4H PRN PO MODERATE PAIN (4-6) 02/20/25 11:30 03/22/25 11:29 02/20/25 14:21 2 TAB Aspirin (Aspirin 81mg Chew Tab) 81 mg DAILY PO 02/21/25 09:00 03/23/25 08:59 Atorvastatin Calcium (LIPItor 40MG) 40 mg HS PO 02/20/25 21:00 03/22/25 20:59 Clopidogrel Bisulfate (plaVIX 75MG) 75 mg DAILY PO 02/21/25 09:00 03/23/25 08:59 Methylprednisolone Sodium Succinate (Solu-medROL 40MG) 40 mg DAILY IVP 02/20/25 15:00 03/22/25 14:59 Morphine Sulfate (morPHINE 4MG SYG) 2 mg Q4H PRN IVP SEVERE PAIN (7-10) 02/19/25 16:00 02/26/25 15:59 02/20/25 13:08 2 MG Ondansetron HCl (zoFRAN 4MG INJ) 4 mg Q6H PRN IVP NAUSEA/VOMITING 02/19/25 16:00 03/21/25 15:59 Piperacillin Sod/ Tazobactam Sod (Zosyn 3.375gm+NS 50ml) 3.375 gm Q8H IVPB 02/19/25 16:00 03/01/25 15:59 02/20/25 09:30 3.375 GM Sodium Chloride (NS 50ml) 50 ml AD IV 02/19/25 23:00 02/20/25 11:44 DC Vancomycin HCl 250 ml @ 125 mls/hr Q24H IV 02/20/25 17:00 03/02/25 16:59 Vancomycin HCl (Vancomycin Protocol) 1 each AD IV 02/19/25 16:00 03/05/25 15:59 DIAGNOSTICS / RADIOLOGY: [ ] ASSESSMENT: Gangrene of the left 5th toe due to possible vascular compromise, POA Sepsis due to possible secondary infection of the gangrene Myelodysplastic syndrome on chemotherapy (immunocompromised state), POA Acute gout flare (less likely given necrosis and trauma history), POA Acute kidney injury, POA PLAN: Gangrene of the left 5th toe due to possible vascular compromise, POA * He had a severe pain 10 days back with purplish discoloration which progressed to a black eschar like lesion on the left 5th toe. Foot x-ray did not reveal any acute osseous injury. Arterial ultrasound revealed calcified 60-70% stenosis in left mid superficial artery with no flow in right proximal superficial artery. * Consulted cardiology. We will plan to get CT angio bilateral lower limb versus precatheterization depending upon the cardiology recommendations. Patient is started on [id number] mg, [id number] mg and atorvastatin 40 mg daily. Sepsis due to possible secondary infection of the gangrene * Presented with pulse 132, temperature 100.8, CRP 16, procalcitonin 0.95, lactate 2.5, ESR 38. 24 hour blood culture negative * Started on empiric antibiotic vancomycin and Zosyn * Consulted ID for the further recommendations. Consulted Podiatry for necessary intervention Myelodysplastic syndrome on chemotherapy (immunocompromised state), POA * Consulted Hematology and Oncology Acute gout flare (less likely given necrosis and trauma history), POA * Patient has a history of gout. Acute kidney injury, POA * Creatinine on admission 1.3, improving to 1 * We will avoid nephrotoxic drugs and monitor the renal function. DVT prophylaxis: Heparin 5000 units b.i.d. GI prophylaxis: Famotidine 20 mg b.i.d. ATTESTATION BY PHYSICIAN I have seen and examined the patient. I reviewed the documentation, medical decision making, and treatment plan as noted by the resident provider above. I agree with the findings and plan of care. Jasbir Valles IV, MD, SUNIL MD Feb 20, 2025 16:49
[2025-02-20] MEDS: VANCOMYCIN 1.5 GM/250 ML BAG 250 ML IV SCH (18:12)
[2025-02-20] MEDS: Solu-medROL 40MG VIAL IVP SCH (18:13)
[2025-02-20] MEDS: FAMOTIDINE 20MG TAB PO SCH (20:33)
[2025-02-21] VITALS (7 sets, daily range): BP systolic 117–130; BP diastolic 54–74; PULSE 58–71; RESP 17–20; TEMP 97.4–98.3; O2SAT 96–97
--- NOTE | 2025-02-21 02:22 | CONS ---
HEMATOLOGY CONSULTATION HISTORY OF PRESENT ILLNESS: This is a 69-year-old male patient with history of MDS, has been on treatment with decitabine and venetoclax. He has responded well to treatment, but now has developed left foot cellulitis associated with fifth toe necrosis, possible peripheral vascular disease. He is undergoing further evaluation for possible osteomyelitis. At this point, he denies any significant pain or bleeding. No fever or chills. He is on IV antibiotics. Cardiology and ID evaluation pending. PHYSICAL EXAMINATION: VITAL SIGNS: Stable, febrile. GENERAL: The patient is alert, in no acute distress. HEART: Regular rate and rhythm. LUNGS: With diminished breath sounds at both bases. No crackles. ABDOMEN: Soft. Nontender. Bowel sounds present. EXTREMITIES: With marked pedal edema on the left leg with erythema, also necrotic changes of the fifth toe. LABORATORY DATA: WBC 6.8, hemoglobin 12, hematocrit 39, platelet count 256, creatinine 1.5. ASSESSMENT: * Left foot cellulitis. * Left fifth toe necrosis with possible osteomyelitis. * History of myelodysplastic syndrome. * Peripheral vascular disease. PLAN: The patient remains stable with stable blood count. I will hold treatment while he is in the hospital. Continue on IV antibiotics. Follow ID and Cardiology evaluation recommendations. TID: [id number] RECEIPT: [id number]
[2025-02-21 04:04] LABS: IMMATURE GRANULOCYTE ABSOLUTE 0.22 K/uL (0-1); NUCLEATED RED BLOOD CELLS 0.0 % (0.0-0.19); PLATELET COUNT (AUTO) 239 K/uL (130-400); RED BLOOD CELL COUNT(AUTO) 3.58 MIL/uL (4.50-6.20); RED CELL DISTRIBUTION WIDTH 16.6 % (11.0-15.5); WHITE BLOOD COUNT (AUTO) 7.1 K/uL (4.8-10.8)
[2025-02-21 04:19] LABS: CREATININE 1.3 mg/dL (0.5-1.3); GLOMERULAR FILTR. RATE CALC 60.0 mL/min (>90); GLUCOSE,RANDOM 152.0 mg/dL (70-105); LACTATE DEHYDROGENASE 185.0 U/L (81-234); LDL DIRECT 92.0 mg/dL (0-99); SODIUM SERUM 140.0 mmol/L (136-145); UREA NITROGEN, BLOOD 26.0 mg/dL (7-18)
[2025-02-21] MEDS: ASPIRIN 81MG CHEW TAB PO SCH (09:26)
--- NOTE | 2025-02-21 09:29 | CONS ---
INFECTIOUS DISEASE CONSULTATION DATE OF SERVICE: 02/20/2025 REQUESTING PHYSICIAN: Ana Gaspar NP REASON FOR CONSULTATION: Left fifth toe cellulitis and possible gangrene. HISTORY OF PRESENT ILLNESS: A 69-year-old male with history of myelodysplastic syndrome, gout, hypertension, and obesity, who presented to the hospital with left fifth toe pain, swelling, and redness. The patient bumped his foot against an object, noticing pain and redness. Started 8 days ago. Due to discoloration, decided to come to the emergency room. The patient has a history of MDS and was receiving chemotherapy with Dr. Simms. No cough. No palpitations or orthopnea. X-rays show soft tissue swelling. Arterial Doppler has been done, which shows proximal right superior femoral artery occlusion. The patient was evaluated by Cardiology and CT angiogram of lower extremity has been noted. PAST MEDICAL HISTORY: 1. Myelodysplastic syndrome. 2. Gout. 3. Hypertension. 4. Obesity. PAST SURGICAL HISTORY: 1. Bilateral thumb surgery. 2. Bone marrow biopsy. ALLERGIES: No known drug allergies. CURRENT MEDICATIONS: Include: 1. Zosyn. 2. Vancomycin. 3. Tylenol. 4. Prednisone. 5. Sulfa. SOCIAL HISTORY: No alcohol, tobacco, or illicit drug use. FAMILY HISTORY: Noncontributory. REVIEW OF SYSTEMS: CONSTITUTIONAL: Positive for fever and chills. No weight loss or night sweats. EYES: No eye pain. No photophobia or diplopia. HENT: No sore throat. No rhinorrhea or earache. NECK: No neck pain or neck swelling. RESPIRATORY: No cough. No hemoptysis or pleuritic pain. CARDIOVASCULAR: No chest pain. No palpitations or orthopnea. GASTROINTESTINAL: No nausea, vomiting, or abdominal pain. GENITOURINARY: No dysuria, urgency, or urinary frequency. CENTRAL NERVOUS SYSTEM: No headache, dyspnea, or slurred speech. PSYCHIATRY: No depression, no suicidal ideation. MUSCULOSKELETAL: Positive for left fifth toe gangrenous changes, and left fourth toe redness and pain. PHYSICAL EXAMINATION: GENERAL: Elderly male, awake. VITAL SIGNS: Temperature 100.3, pulse 92, respirations 19, blood pressure 142/64. EYES: No icterus. Pupils equal and reactive. HENT: No oral thrush seen. Moist oral mucosa. NECK: Supple. No JVD or thyromegaly. LUNGS: Good air entry. No rales, no rhonchi. CARDIOVASCULAR: S1 and S2. Regular. No murmur heard. ABDOMEN: Soft, nontender. No organomegaly. CENTRAL NERVOUS SYSTEM: Awake, alert, and oriented x 3. No focal deficits. SKIN: No rashes. LYMPHATIC: No peripheral lymphadenopathy. BACK: No deformity. No paraspinal musculature. MUSCULOSKELETAL: No joint swelling, erythema or tenderness. EXTREMITIES: Edema involving the left foot. There are no changes to the left fifth toe. LABORATORY DATA: Procalcitonin is 0.94. Sodium 138, potassium 3.7, BUN 19, creatinine 1.0. WBC 8.6, hemoglobin 12.6, platelets 143. RADIOLOGY: Arterial Doppler . X-ray of the left foot show soft tissue swelling. ASSESSMENT: A 69-year-old male presenting with left foot pain, swelling, and redness. Current problem include: 1. Left foot cellulitis. 2. Left fifth toe gangrenous changes. 3. Peripheral vascular disease. 4. Obesity. 5. Myelodysplastic syndrome, on chemotherapy, underlying myelosuppression. PLAN: 1. Start the patient on Solu-Medrol. 2. Followup CT angiogram result. 3. Continue vancomycin. 4. Continue Zosyn. 5. Followup culture. 6. Discontinue . 7. Continue DVT prophylaxis. 8. Continue nutritional support. 9. The patient will be followed up closely. Thank you for allowing me to participate in the care of this patient. TID: [id number] RECEIPT: [id number]
--- NOTE | 2025-02-21 11:21 | PN ---
Patient and his appear upset. Patient believes the problem with his foot is gout, not an infection, and he does not want to have angiography or undergo any other invasive procedure other than the amputation of his toe, which she accepts as necessary. I advised the patient I would discuss the case with Dr. Dean and he could discuss it further with Infectious Disease, and we will defer the invasive angiographic/interventional evaluation and treatment until such time as the patient is content that all providers are in agreement and the patient himself accepts the procedure. Vitals/Labs Vital Signs Date Time Temp Pulse Resp B/P (MAP) Pulse Ox O2 Delivery O2 Flow Rate FiO2 02/21/25 08:00 97.3 60 18 128/74 97 Room Air 21 02/20/25 19:45 0 Laboratory Tests 02/21/25 03:57 Medications Current Medications Piperacillin Sod/ Tazobactam Sod 3.375 gm ONCE ONCE IV; Start 02/19/25 at 14:00; Stop 02/19/25 at 14:01; Status DC Vancomycin HCl 1 gm ONCE ONCE IV; Start 02/19/25 at 14:00; Stop 02/19/25 at 14:01; Status Cancel Vancomycin HCl 1 each AD IV; Start 02/19/25 at 16:00; Stop 03/05/25 at 15:59 Piperacillin Sod/ Tazobactam Sod 3.375 gm Q8H IVPB Last administered on 02/21/25at 09:25; Start 02/19/25 at 16:00; Stop 03/01/25 at 15:59 Sodium Chloride 50 ml AD IV; Start 02/19/25 at 23:00; Stop 02/20/25 at 11:44; Status DC Acetaminophen 650 mg Q4H PRN PO; Start 02/19/25 at 16:00; Stop 03/21/25 at 15:59 Acetaminophen 650 mg Q6H PRN PO; Start 02/19/25 at 16:00; Stop 03/21/25 at 15:59 Ondansetron HCl 4 mg Q6H PRN IVP; Start 02/19/25 at 16:00; Stop 03/21/25 at 15:59 Morphine Sulfate 2 mg Q4H PRN IVP Last administered on 02/20/25at 13:08; Start 02/19/25 at 16:00; Stop 02/26/25 at 15:59 Vancomycin HCl 500 ml @ 250 mls/hr ONCE ONCE IV Last administered on 02/19/25at 18:56; Start 02/19/25 at 17:00; Stop 02/19/25 at 18:59; Status DC Vancomycin HCl 250 ml @ 125 mls/hr Q24H IV Last administered on 02/20/25at 18:12; Start 02/20/25 at 17:00; Stop 03/02/25 at 16:59 Acetaminophen/ Codeine Phosphate 2 tab Q4H PRN PO Last administered on 02/21/25at 01:35; Start 02/20/25 at 11:30; Stop 03/22/25 at 11:29 Aspirin 81 mg DAILY PO Last administered on 02/21/25at 09:26; Start 02/21/25 at 09:00; Stop 03/23/25 at 08:59 Atorvastatin Calcium 40 mg HS PO Last administered on 02/20/25at 20:32; Start 02/20/25 at 21:00; Stop 03/22/25 at 20:59 Clopidogrel Bisulfate 75 mg DAILY PO; Start 02/21/25 at 09:00; Stop 03/23/25 at 08:59 Methylprednisolone Sodium Succinate 40 mg DAILY IVP Last administered on 02/21/25at 09:25; Start 02/20/25 at 15:00; Stop 03/22/25 at 14:59 Diphenhydramine HCl 25 mg ONCE ONCE IV; Start 02/20/25 at 15:00; Stop 02/20/25 at 15:31; Status DC Heparin Sodium (Porcine) 5,000 unit Q12H SQ Last administered on 02/21/25at 03:33; Start 02/20/25 at 16:00; Stop 03/22/25 at 15:59 Famotidine 20 mg BID PO Last administered on 02/21/25at 09:25; Start 02/20/25 at 21:00; Stop 03/22/25 at 20:59 FIDE ADHIKARI MD Feb 21, 2025 11:21
--- NOTE | 2025-02-21 12:06 | PN ---
INFECTIOUS DISEASE PROGRESS NOTE Date of Service: Feb 21, 2025 SUBJECTIVE: This is a 69-year-old male patient admitted with pain and necrosis to the left 5th toe. Patient has been evaluated by Cardiology and a peripheral angiogram was recommended. Per report however patient declined the procedure on who was canceled. When talking to patient he said he did not declined the procedure he just wanted his present when the procedure was being explained. No fever this morning, temperature is 97.5. Patient will continue on Zosyn and vancomycin per pharmacy protocol. Patient is also having a gout flare-up, we will give Solu-Medrol IV to help with the and swelling on the left foot. We will continue to follow patient's care. PHYSICAL EXAM EYES: Anicteric. Pupils equal and reactive. HENT: No oral thrush seen, moist Oral mucosa NECK: Supple, no JVD or thyromegaly. LUNGS: Good air entry. No rales, no rhonchi. CARDIOVASCULAR: S1, S2 regular. No murmur heard. ABDOMEN: Soft, non tender, bowel sounds present, no organomegaly CENTRAL NERVOUS SYSTEM: Awake, alert, oriented x 3. No focal deficits. SKIN: No rashes, no swelling. Left 5th toe with gangrene. Left foot swelling and cellulitis. LYMPHATICS: No peripheral lymphadenopathy MUSCULOSKELETAL: No joint swelling, erythema or tenderness. EXTREMITIES: No cyanosis or clubbing. Left 5th toe gangrene. BACK: No deformity, no pressure ulcer. GENITOURINARY: No dysuria or hematuria. Vital Sign (Last 12 Hours) 02/21/25 02/21/25 03:51 08:00 Temp 97.7 97.3 Pulse 61 60 Resp 17 18 B/P (MAP) 117/60 128/74 Pulse Ox 95 97 O2 Delivery Room Air Room Air FiO2 21 Intake & Output (last 24hrs) 02/20/25 02/20/25 02/21/25 15:00 23:00 07:00 Intake Total 500 ml 50.0 ml Balance 500 ml 50.0 ml LABS: Laboratory: Test 02/21/25 03:57 02/20/25 03:34 02/19/25 19:41 02/19/25 18:01 Range/Units White Blood Count 7.1 4.8-10.8 K/uL Red Blood Count 3.58 L 4.50-6.20 MIL/uL Hemoglobin 11.9 L 14.0-18.0 g/dL Hematocrit 36.8 L 42-54 % Mean Corpuscular Volume 102.8 H 79-99 fL Mean Corpuscular Hemoglobin 33.2 H 27.0-33.0 pg Mean Corpuscular Hemoglobin Concent 32.3 32.0-36.0 g/dL Red Cell Distribution Width 16.6 H 11.0-15.5 % Platelet Count 239 130-400 K/uL Mean Platelet Volume 11.2 H 7.5-10.5 fL Immature Granulocyte % (Auto) 3.1 H 0-1 % Neutrophils (%) (Auto) 85.6 H 40.0-77.0 % Lymphocytes (%) (Auto) 4.3 L 21.0-51.0 % Monocytes (%) (Auto) 6.7 3.0-13.0 % Eosinophils (%) (Auto) 0.0 0.0-8.0 % Basophils (%) (Auto) 0.3 0.0-5.0 % Neutrophils # (Auto) 6.1 1.8-7.7 K/uL Lymphocytes # (Auto) 0.3 L 1.0-4.8 K/uL Monocytes # (Auto) 0.5 0.1-1.0 K/uL Eosinophils # (Auto) 0.00 0.00-0.70 K/uL Basophils # (Auto) 0.02 0.00-0.20 K/uL Absolute Immature Granulocyte (auto 0.22 0-1 K/uL Nucleated Red Blood Cells 0.0 0.0-0.19 % Sodium Level 140 136-145 mmol/L Potassium Level 4.6 3.5-5.1 mmol/L Chloride Level 105 101-111 mmol/L Carbon Dioxide Level 26 21-32 mmol/L Blood Urea Nitrogen 26 H 7-18 mg/dL Creatinine 1.3 0.5-1.3 mg/dL Glomerular Filtration Rate Calc 60 >90 mL/min Random Glucose 152 H 70-105 mg/dL Hemoglobin A1c 4.9 4.0-6.0 % Estimated Average Glucose (eAG) 94 70-126 mg/dL Total Calcium 8.9 8.5-10.1 mg/dL Magnesium Level 2.10 1.80-2.40 mg/dL Lactate Dehydrogenase 185 81-234 U/L C-Reactive Protein, Quantitative 98.00 H 0.5-3.0 mg/L Triglycerides Level 98 30-200 mg/dL Cholesterol Level 159 <200 mg/dL LDL Cholesterol 92 0-99 mg/dL HDL Cholesterol 45 29-71 mg/dL Total Bilirubin 0.7 # 0.2-1.0 mg/dL Aspartate Amino Transf (AST/SGOT) 22 10-37 U/L Alanine Aminotransferase (ALT/SGPT) 31 12-78 U/L Alkaline Phosphatase 102 50-136 U/L Total Protein 6.5 6.0-8.3 g/dL Albumin 3.3 L 3.5-5.0 g/dL Procalcitonin 0.94 H 0.05-0.5 ng/mL Whole Blood Glucose 132 H 70-110 MG/DL Lactic Acid Level 1.3 0.8-2.5 mmol/L Test 02/19/25 13:37 Range/Units White Cell Morphology Comment See comments Red Blood Cell Morphology See comments Erythrocyte Sedimentation Rate 38 H 0-20 MM/HR Direct Bilirubin 0.1 0.0-0.3 mg/dL Troponin I High Sensitivity 12 4-75 ng/L ASSESSMENT: Left 5th toe gangrene. Left foot cellulitis. Myelodysplastic syndrome, on chemotherapy, underlying myelosuppression. Gout with possible flare-up. PLAN: Continue vancomycin per pharmacy protocol. Continue Zosyn IV. Continue pain management. Continue wound care. Testing Specialist following patient. Give Solu-Medrol 40 mg IV daily to help with the gout flare up. Pending a peripheral angiogram. This case was reviewed and discussed with my supervising physician Dr. Chapman and the above assessment and plan was formulated and agreed upon. ATTESTATION BY PHYSICIAN I have seen and examined the patient. I reviewed the documentation, medical decision making, and treatment plan as noted by the mid-level provider above. I agree with the findings and plan of care. RIC CHAPMAN MD, [facility] Feb 21, 2025 12:06
--- NOTE | 2025-02-21 15:15 | NUR ---
[facility] Consult: Patient assessed by wound healing team. See wound assessment. Assessment and recommendations provided to primary nurse. Education provided. Addendum: 02/22/25 at 1553 by GHISLAINE CHOUDHARY RN RN/ Amended: Links added.
--- NOTE | 2025-02-21 16:31 | PN ---
[facility] PROGRESS NOTE Date of Service: Feb 21, 2025 Time of Service: 16:18 SUBJECTIVE: Mr. Murray Reina is a 69-year-old male who presents to the emergency department with complaints of severe pain and necrosis of the left fifth toe. The patient reports that the pain began approximately eight days ago, initially attributing it to a possible gout attack. Several days later, he stubbed his left pinky toe, after which he noticed progressive discoloration and necrosis of the toe, accompanied by worsening pain, which he rates as 30/10 in severity. He has a significant past medical history of myelodysplastic syndrome, diagnosed one year ago, and is currently under the care of Dr. Hubert Simms. He receives monthly chemotherapy but canceled his scheduled treatment today due to his current condition. The patient also reports that he has not refilled two of his regular medications after returning from a recent vacation. Over the past week, he has observed increasing swelling, redness, and inflammation of the left lower extremity. He denies current fever but endorses intermittent chills and subjective low-grade fevers over the past week. He denies any other complaints aside from the severe pain in the affected toe. In the emergency department, an X-ray of the left foot was performed, revealing soft tissue swelling, no acute osseous injury, mild degenerative changes of the first metatarsophalangeal joint, and dorsal tissue swelling. Evaluation noted plantar surface with black necrotic tissue/eschar. Surrounding tissue is red. Periwound is mild erythematous with dry and scaly. He has been referred to the hospitalist service for further evaluation and management. 02/20/2025: He was evaluated at the bedside this morning. He is AAO x3 he complained of pain in his left foot which has slightly improved. The black necrotic eschar was noted on his left 5th toe. Remarkable lab is for ESR 38, CRP 16, procalcitonin 0.94, lactate 2.5, creatinine 1.3. potassium 3.7. Atrial ultrasound revealed 60-70% left mid superficial artery stenosis with no flow in right proximal superficial artery. Cardiology is consulted for the necessary intervention the peripheral artery disease leading to dry gangrene of left 5th toe. ID consulted for possible sepsis. Podiatry consulted for the gangrenous left foot. Rest of the plan as discussed below 02/21/2025: He was evaluated at the bedside this morning. No overnight event. He is AAO x3. He complains of mild left foot pain. He is hemodynamically stable and labs remarkable for CRP 98 creatinine 1.3, procalcitonin 0.94, hemoglobin 11.9. Cardiology want angiogram of the bilateral limb but patient denied the catheterization. We will defer the catheterization for now. He is continued on vancomycin, Zosyn and Solu-Medrol along with aspirin, Plavix and atorvastatin. ID is on board. Podiatry consulted for the gangrene of the left 5th toe. Rest of the plan as discussed below REVIEW OF SYSTEMS CONSTITUTIONAL: Denies fevers, chills, or night sweats. No unintentional weight loss reported. NEUROLOGICAL: Denies headache, amaurosis fugax, motor weakness, sensory deficit, vertigo/spinning sensation, gait abnormalities, or tremors. ENT: No hearing loss, otalgia, otorrhea, rhinitis, rhinorrhea, hoarseness, or sore throat. CARDIOVASCULAR: Denies any exertional angina, dyspnea on exertion, orthopnea, paroxysmal nocturnal dyspnea, palpitations, life-threatening arrhythmias, claudication. PULMONARY: Denies any shortness of breath, cough, phlegm/sputum, hemoptysis, pleuritic chest pain. SLEEP: Denies morning headaches, daytime somnolence or napping. Denies difficulty falling asleep, staying asleep, waking from sleep. Denies knowledge of snoring. GASTROINTESTINAL: Denies any type of dysphagia to either liquids or solids. Denies nausea, vomiting, pyrosis, early satiety, abdominal pain, diarrhea, constipation, or changes in stool consistency or caliber. Denies coffee-ground emesis, hematemesis, hematochezia, or melanotic stools. GENITOURINARY: Denies frequency, urgency, nocturia, hematuria or incontinence (Storage/Irritative symptoms.) Low urinary stream, straining to void, urinary intermittency or hesitancy, splitting of the voiding stream, terminal dribbling. ENDOCRINOLOGIC: Denies polyuria, polydipsia, polyphagia or heat/cold intolerances. HEMATOLOGIC: Denies thrombophilia/previous clots, or coagulopathy/bleeding disorders. ONCOLOGIC: Denies personal history of malignancy. DERMATOLOGIC: Denies rashes or pruritus. PSYCHIATRIC: Denies any suicidal or homicidal ideation. Denies hallucinations. PHYSICAL EXAM GENERAL APPEARANCE: The patient is awake, alert, and oriented, in no acute cardiopulmonary distress. NEUROLOGICAL: Cranial nerves II-XII grossly intact. Motor is 5/5 in bilateral upper and lower extremities proximal to distal. No sensory deficits. HEENT: Face is symmetric. NECK: Supple. No JVD. No thyromegaly. CHEST: Normal chest expansion. No Telemetry. LUNGS: Absence of any rales, rhonchi or any wheezing. CARDIOVASCULAR: Regular. S1 and S2 normal. No appreciable rubs, murmurs or gallops. ABDOMEN: Soft, nontender, and nondistended. There is no rebound, voluntary guarding, or rigidity. : Deferred. No Swanson. EXTREMITIES: Necrotic gangrenous left 5th toe, SKIN: No skin breakdown. Vital Signs (last 8hr) Date Time Temp Pulse Resp B/P (MAP) Pulse Ox O2 Delivery O2 Flow Rate FiO2 02/21/25 12:00 97.5 58 20 130/72 97 Room Air 21 LABS: Laboratory: Test 02/21/25 03:57 02/20/25 03:34 02/19/25 19:41 02/19/25 18:01 Range/Units White Blood Count 7.1 4.8-10.8 K/uL Red Blood Count 3.58 L 4.50-6.20 MIL/uL Hemoglobin 11.9 L 14.0-18.0 g/dL Hematocrit 36.8 L 42-54 % Mean Corpuscular Volume 102.8 H 79-99 fL Mean Corpuscular Hemoglobin 33.2 H 27.0-33.0 pg Mean Corpuscular Hemoglobin Concent 32.3 32.0-36.0 g/dL Red Cell Distribution Width 16.6 H 11.0-15.5 % Platelet Count 239 130-400 K/uL Mean Platelet Volume 11.2 H 7.5-10.5 fL Immature Granulocyte % (Auto) 3.1 H 0-1 % Neutrophils (%) (Auto) 85.6 H 40.0-77.0 % Lymphocytes (%) (Auto) 4.3 L 21.0-51.0 % Monocytes (%) (Auto) 6.7 3.0-13.0 % Eosinophils (%) (Auto) 0.0 0.0-8.0 % Basophils (%) (Auto) 0.3 0.0-5.0 % Neutrophils # (Auto) 6.1 1.8-7.7 K/uL Lymphocytes # (Auto) 0.3 L 1.0-4.8 K/uL Monocytes # (Auto) 0.5 0.1-1.0 K/uL Eosinophils # (Auto) 0.00 0.00-0.70 K/uL Basophils # (Auto) 0.02 0.00-0.20 K/uL Absolute Immature Granulocyte (auto 0.22 0-1 K/uL Nucleated Red Blood Cells 0.0 0.0-0.19 % Sodium Level 140 136-145 mmol/L Potassium Level 4.6 3.5-5.1 mmol/L Chloride Level 105 101-111 mmol/L Carbon Dioxide Level 26 21-32 mmol/L Blood Urea Nitrogen 26 H 7-18 mg/dL Creatinine 1.3 0.5-1.3 mg/dL Glomerular Filtration Rate Calc 60 >90 mL/min Random Glucose 152 H 70-105 mg/dL Hemoglobin A1c 4.9 4.0-6.0 % Estimated Average Glucose (eAG) 94 70-126 mg/dL Uric Acid 5.4 2.6-7.2 mg/dL Total Calcium 8.9 8.5-10.1 mg/dL Magnesium Level 2.10 1.80-2.40 mg/dL Lactate Dehydrogenase 185 81-234 U/L C-Reactive Protein, Quantitative 98.00 H 0.5-3.0 mg/L Triglycerides Level 98 30-200 mg/dL Cholesterol Level 159 <200 mg/dL LDL Cholesterol 92 0-99 mg/dL HDL Cholesterol 45 29-71 mg/dL Total Bilirubin 0.7 # 0.2-1.0 mg/dL Aspartate Amino Transf (AST/SGOT) 22 10-37 U/L Alanine Aminotransferase (ALT/SGPT) 31 12-78 U/L Alkaline Phosphatase 102 50-136 U/L Total Protein 6.5 6.0-8.3 g/dL Albumin 3.3 L 3.5-5.0 g/dL Procalcitonin 0.94 H 0.05-0.5 ng/mL Whole Blood Glucose 132 H 70-110 MG/DL Lactic Acid Level 1.3 0.8-2.5 mmol/L Current Medications Medications (Trade) Dose Ordered Sig/Antonio Route PRN Reason Start Time Stop Time Status Last Admin Dose Admin Acetaminophen (TYLenol 325MG TAB) 650 mg Q4H PRN PO TEMPERATURE GREATER THAN 101.5 02/19/25 16:00 03/21/25 15:59 Acetaminophen (TYLenol 325MG TAB) 650 mg Q6H PRN PO MILD PAIN (1-3) 02/19/25 16:00 03/21/25 15:59 Acetaminophen/ Codeine Phosphate (TYLenol-coDEINE TAB) 2 tab Q4H PRN PO MODERATE PAIN (4-6) 02/20/25 11:30 03/22/25 11:29 02/21/25 01:35 2 TAB Allopurinol (ZYLOprim 300MG) 300 mg DAILY PO 02/22/25 09:00 03/24/25 08:59 Aspirin (Aspirin 81mg Chew Tab) 81 mg DAILY PO 02/21/25 09:00 03/23/25 08:59 02/21/25 09:26 81 MG Atorvastatin Calcium (LIPItor 40MG) 40 mg HS PO 02/20/25 21:00 03/22/25 20:59 02/20/25 20:32 40 MG Clopidogrel Bisulfate (plaVIX 75MG) 75 mg DAILY PO 02/21/25 09:00 03/23/25 08:59 Famotidine (Pepcid 20mg Tab) 20 mg BID PO 02/20/25 21:00 03/22/25 20:59 02/21/25 09:25 20 MG Heparin Sodium (Porcine) (HEParin 5,000 UNIT VIAL) 5,000 unit Q12H SQ 02/20/25 16:00 03/22/25 15:59 02/21/25 03:33 5,000 UNIT Methylprednisolone Sodium Succinate (Solu-medROL 40MG) 40 mg DAILY IVP 02/20/25 15:00 03/22/25 14:59 02/21/25 09:25 40 MG Morphine Sulfate (morPHINE 4MG SYG) 2 mg Q4H PRN IVP SEVERE PAIN (7-10) 02/19/25 16:00 02/26/25 15:59 02/20/25 13:08 2 MG Ondansetron HCl (zoFRAN 4MG INJ) 4 mg Q6H PRN IVP NAUSEA/VOMITING 02/19/25 16:00 03/21/25 15:59 Piperacillin Sod/ Tazobactam Sod (Zosyn 3.375gm+NS 50ml) 3.375 gm Q8H IVPB 02/19/25 16:00 03/01/25 15:59 02/21/25 09:25 3.375 GM Sodium Chloride (NS 50ml) 50 ml AD IV 02/19/25 23:00 02/20/25 11:44 DC Vancomycin HCl 250 ml @ 125 mls/hr Q24H IV 02/20/25 17:00 03/02/25 16:59 02/20/25 18:12 125 MLS/HR Vancomycin HCl (Vancomycin Protocol) 1 each AD IV 02/19/25 16:00 03/05/25 15:59 DIAGNOSTICS / RADIOLOGY: [ ] ASSESSMENT: Gangrene of the left 5th toe due to possible vascular compromise, POA Sepsis due to possible secondary infection of the gangrene Myelodysplastic syndrome on chemotherapy (immunocompromised state), POA Acute gout flare (less likely given necrosis and trauma history), POA Acute kidney injury, POA PLAN: Gangrene of the left 5th toe due to possible vascular compromise, POA * He had a severe pain 10 days back with purplish discoloration which progressed to a black eschar like lesion on the left 5th toe. Foot x-ray did not reveal any acute osseous injury. Arterial ultrasound revealed calcified 60-70% stenosis in left mid superficial artery with no flow in right proximal superficial artery. * Consulted cardiology. Cardiology recommended percutaneous catheterization but patient denied and want to defer the procedure for now. Patient is started on aspirin 81 mg, mg and atorvastatin 40 mg daily. Sepsis due to possible secondary infection of the gangrene * Presented with pulse 132, temperature 100.8, CRP 16, procalcitonin 0.95, lactate 2.5, ESR 38. 24 hour blood culture negative * Started on empiric antibiotic vancomycin and Zosyn * Consulted ID for the further recommendations. Consulted Podiatry for necessary intervention Myelodysplastic syndrome on chemotherapy (immunocompromised state), POA * Consulted Hematology and Oncology Acute gout flare (less likely given necrosis and trauma history), POA * Patient has a history of gout. Uric acid 5.4 * Continue Solu-Medrol * Continue allopurinol Acute kidney injury, POA * Creatinine 1.3 * We will avoid nephrotoxic drugs and monitor the renal function. * We will get urinalysis with urine creatinine and electrolytes. DVT prophylaxis: Heparin 5000 units b.i.d. GI prophylaxis: Famotidine 20 mg b.i.d. ATTESTATION BY PHYSICIAN I have seen and examined the patient. I reviewed the documentation, medical decision making, and treatment plan as noted by the resident provider above. I agree with the findings and plan of care. Jasbir Valles IV, MD, SUNIL MD Feb 21, 2025 16:31
[2025-02-22] VITALS (8 sets, daily range): BP systolic 106–150; BP diastolic 52–75; PULSE 58–98; RESP 18–20; TEMP 97.4–98.8; O2SAT 96–98
[2025-02-22 04:19] LABS: IMMATURE GRANULOCYTE ABSOLUTE 0.28 K/uL (0-1); NUCLEATED RED BLOOD CELLS 0.0 % (0.0-0.19); PLATELET COUNT (AUTO) 244 K/uL (130-400); RED BLOOD CELL COUNT(AUTO) 3.50 MIL/uL (4.50-6.20); RED CELL DISTRIBUTION WIDTH 16.3 % (11.0-15.5); WHITE BLOOD COUNT (AUTO) 11.2 K/uL (4.8-10.8)
[2025-02-22 04:31] LABS: CREATININE 1.1 mg/dL (0.5-1.3); GLOMERULAR FILTR. RATE CALC 74.0 mL/min (>90); GLUCOSE,RANDOM 116.0 mg/dL (70-105); SODIUM SERUM 142.0 mmol/L (136-145); UREA NITROGEN, BLOOD 25.0 mg/dL (7-18)
--- NOTE | 2025-02-22 07:05 | PN ---
Gangrene of the left 5th toe due to possible vascular compromise, POA Sepsis due to possible secondary infection of the gangrene Myelodysplastic syndrome on chemotherapy (immunocompromised state), POA Acute gout flare (less likely given necrosis and trauma history), POA Acute kidney injury, POA Patient now desires to proceed with angiography and potential revascularization of his left lower extremity. I will contact my associate on-call today to ascertain whether this procedure can be done. I will be in the [place] office for the rest of the day. Vitals/Labs Vital Signs Date Time Temp Pulse Resp B/P (MAP) Pulse Ox O2 Delivery O2 Flow Rate FiO2 02/22/25 04:00 98.2 98 106/52 99 Nasal Cannula 2.0 02/22/25 00:00 18 02/21/25 19:58 21 Laboratory Tests 02/22/25 04:13 Medications Current Medications Piperacillin Sod/ Tazobactam Sod 3.375 gm ONCE ONCE IV; Start 02/19/25 at 14:00; Stop 02/19/25 at 14:01; Status DC Vancomycin HCl 1 gm ONCE ONCE IV; Start 02/19/25 at 14:00; Stop 02/19/25 at 14:01; Status Cancel Vancomycin HCl 1 each AD IV; Start 02/19/25 at 16:00; Stop 03/05/25 at 15:59 Piperacillin Sod/ Tazobactam Sod 3.375 gm Q8H IVPB Last administered on 02/22/25at 00:04; Start 02/19/25 at 16:00; Stop 03/01/25 at 15:59 Sodium Chloride 50 ml AD IV; Start 02/19/25 at 23:00; Stop 02/20/25 at 11:44; Status DC Acetaminophen 650 mg Q4H PRN PO; Start 02/19/25 at 16:00; Stop 03/21/25 at 15:59 Acetaminophen 650 mg Q6H PRN PO; Start 02/19/25 at 16:00; Stop 03/21/25 at 15:59 Ondansetron HCl 4 mg Q6H PRN IVP; Start 02/19/25 at 16:00; Stop 03/21/25 at 15:59 Morphine Sulfate 2 mg Q4H PRN IVP Last administered on 02/20/25at 13:08; Start 02/19/25 at 16:00; Stop 02/26/25 at 15:59 Vancomycin HCl 500 ml @ 250 mls/hr ONCE ONCE IV Last administered on 02/19/25at 18:56; Start 02/19/25 at 17:00; Stop 02/19/25 at 18:59; Status DC Vancomycin HCl 250 ml @ 125 mls/hr Q24H IV Last administered on 02/21/25at 17:09; Start 02/20/25 at 17:00; Stop 03/02/25 at 16:59 Acetaminophen/ Codeine Phosphate 2 tab Q4H PRN PO Last administered on 02/22/25at 06:23; Start 02/20/25 at 11:30; Stop 03/22/25 at 11:29 Aspirin 81 mg DAILY PO Last administered on 02/21/25at 09:26; Start 02/21/25 at 09:00; Stop 03/23/25 at 08:59 Atorvastatin Calcium 40 mg HS PO Last administered on 02/21/25at 21:23; Start 02/20/25 at 21:00; Stop 03/22/25 at 20:59 Clopidogrel Bisulfate 75 mg DAILY PO; Start 02/21/25 at 09:00; Stop 03/23/25 at 08:59 Methylprednisolone Sodium Succinate 40 mg DAILY IVP Last administered on 02/21/25at 09:25; Start 02/20/25 at 15:00; Stop 03/22/25 at 14:59 Diphenhydramine HCl 25 mg ONCE ONCE IV; Start 02/20/25 at 15:00; Stop 02/20/25 at 15:31; Status DC Heparin Sodium (Porcine) 5,000 unit Q12H SQ Last administered on 02/22/25at 03:50; Start 02/20/25 at 16:00; Stop 03/22/25 at 15:59 Famotidine 20 mg BID PO Last administered on 02/21/25at 21:23; Start 02/20/25 at 21:00; Stop 03/22/25 at 20:59 Allopurinol 300 mg DAILY PO; Start 02/22/25 at 09:00; Stop 03/24/25 at 08:59 FIDE ADHIKARI MD Feb 22, 2025 07:05
--- NOTE | 2025-02-22 13:30 | PN ---
[facility] PROGRESS NOTE Date of Service: Feb 22, 2025 Time of Service: 13:11 SUBJECTIVE: Mr. Murray Reina is a 69-year-old male who presents to the emergency department with complaints of severe pain and necrosis of the left fifth toe. The patient reports that the pain began approximately eight days ago, initially attributing it to a possible gout attack. Several days later, he stubbed his left pinky toe, after which he noticed progressive discoloration and necrosis of the toe, accompanied by worsening pain, which he rates as 30/10 in severity. He has a significant past medical history of myelodysplastic syndrome, diagnosed one year ago, and is currently under the care of Dr. Hubert Simms. He receives monthly chemotherapy but canceled his scheduled treatment today due to his current condition. The patient also reports that he has not refilled two of his regular medications after returning from a recent vacation. Over the past week, he has observed increasing swelling, redness, and inflammation of the left lower extremity. He denies current fever but endorses intermittent chills and subjective low-grade fevers over the past week. He denies any other complaints aside from the severe pain in the affected toe. In the emergency department, an X-ray of the left foot was performed, revealing soft tissue swelling, no acute osseous injury, mild degenerative changes of the first metatarsophalangeal joint, and dorsal tissue swelling. Evaluation noted plantar surface with black necrotic tissue/eschar. Surrounding tissue is red. Periwound is mild erythematous with dry and scaly. He has been referred to the hospitalist service for further evaluation and management. 02/20/2025: He was evaluated at the bedside this morning. He is AAO x3 he complained of pain in his left foot which has slightly improved. The black necrotic eschar was noted on his left 5th toe. Remarkable lab is for ESR 38, CRP 16, procalcitonin 0.94, lactate 2.5, creatinine 1.3. potassium 3.7. Atrial ultrasound revealed 60-70% left mid superficial artery stenosis with no flow in right proximal superficial artery. Cardiology is consulted for the necessary intervention the peripheral artery disease leading to dry gangrene of left 5th toe. ID consulted for possible sepsis. Podiatry consulted for the gangrenous left foot. Rest of the plan as discussed below 02/21/2025: He was evaluated at the bedside this morning. No overnight event. He is AAO x3. He complains of mild left foot pain. He is hemodynamically stable and labs remarkable for CRP 98, creatinine 1.3, procalcitonin 0.94, hemoglobin 11.9. Cardiology want angiogram of the bilateral limb but patient denied the catheterization. We will defer the catheterization for now. He is continued on vancomycin, Zosyn and Solu-Medrol along with aspirin, Plavix and atorvastatin. ID is on board. Podiatry consulted for the gangrene of the left 5th toe. Rest of the plan as discussed below. 02/22/2025: He was evaluated at the bedside this morning. No Overnight event. Who is AAO x3. He complains of mild left foot pain. He is hemodynamically stable and labs remarkable for CRP 54, Cr 1.1, procalcitonin 0.94, Hb 11.6. Patient denies palpitation yesterday but he agreed for today. Cardiology going to scheduling for catheterization today. He is continued on vancomycin, Zosyn and Solu-Medrol along with aspirin, Plavix and atorvastatin. ID is on board. Podiatry consulted for the gangrene of the left 5th toe. Rest of the plan as discussed below. REVIEW OF SYSTEMS CONSTITUTIONAL: Denies fevers, chills, or night sweats. No unintentional weight loss reported. NEUROLOGICAL: Denies headache, amaurosis fugax, motor weakness, sensory deficit, vertigo/spinning sensation, gait abnormalities, or tremors. ENT: No hearing loss, otalgia, otorrhea, rhinitis, rhinorrhea, hoarseness, or sore throat. CARDIOVASCULAR: Denies any exertional angina, dyspnea on exertion, orthopnea, paroxysmal nocturnal dyspnea, palpitations, life-threatening arrhythmias, claudication. PULMONARY: Denies any shortness of breath, cough, phlegm/sputum, hemoptysis, pleuritic chest pain. SLEEP: Denies morning headaches, daytime somnolence or napping. Denies difficulty falling asleep, staying asleep, waking from sleep. Denies knowledge of snoring. GASTROINTESTINAL: Denies any type of dysphagia to either liquids or solids. Denies nausea, vomiting, pyrosis, early satiety, abdominal pain, diarrhea, constipation, or changes in stool consistency or caliber. Denies coffee-ground emesis, hematemesis, hematochezia, or melanotic stools. GENITOURINARY: Denies frequency, urgency, nocturia, hematuria or incontinence (Storage/Irritative symptoms.) Low urinary stream, straining to void, urinary intermittency or hesitancy, splitting of the voiding stream, terminal dribbling. ENDOCRINOLOGIC: Denies polyuria, polydipsia, polyphagia or heat/cold intoleranc es. HEMATOLOGIC: Denies thrombophilia/previous clots, or coagulopathy/bleeding disorders. ONCOLOGIC: Denies personal history of malignancy. DERMATOLOGIC: Denies rashes or pruritus. PSYCHIATRIC: Denies any suicidal or homicidal ideation. Denies hallucinations. PHYSICAL EXAM GENERAL APPEARANCE: The patient is awake, alert, and oriented, in no acute cardiopulmonary distress. NEUROLOGICAL: Cranial nerves II-XII grossly intact. Motor is 5/5 in bilateral upper and lower extremities proximal to distal. No sensory deficits. HEENT: Face is symmetric. NECK: Supple. No JVD. No thyromegaly. CHEST: Normal chest expansion. No Telemetry. LUNGS: Absence of any rales, rhonchi or any wheezing. CARDIOVASCULAR: Regular. S1 and S2 normal. No appreciable rubs, murmurs or gallops. ABDOMEN: Soft, nontender, and nondistended. There is no rebound, voluntary guarding, or rigidity. : Deferred. No Swanson. EXTREMITIES: Necrotic gangrenous left 5th toe, SKIN: No skin breakdown. Vital Signs (last 8hr) Date Time Temp Pulse Resp B/P (MAP) Pulse Ox O2 Delivery O2 Flow Rate FiO2 02/22/25 11:54 97.5 60 18 150/70 96 Room Air 02/22/25 08:00 97.3 60 18 117/64 98 Room Air LABS: Laboratory: Test 02/22/25 04:13 02/21/25 03:57 Range/Units White Blood Count 11.2 H 4.8-10.8 K/uL Red Blood Count 3.50 L 4.50-6.20 MIL/uL Hemoglobin 11.6 L 14.0-18.0 g/dL Hematocrit 36.2 L 42-54 % Mean Corpuscular Volume 103.4 H 79-99 fL Mean Corpuscular Hemoglobin 33.1 H 27.0-33.0 pg Mean Corpuscular Hemoglobin Concent 32.0 32.0-36.0 g/dL Red Cell Distribution Width 16.3 H 11.0-15.5 % Platelet Count 244 130-400 K/uL Mean Platelet Volume 10.7 H 7.5-10.5 fL Immature Granulocyte % (Auto) 2.5 H 0-1 % Neutrophils (%) (Auto) 73.2 40.0-77.0 % Lymphocytes (%) (Auto) 5.5 L 21.0-51.0 % Monocytes (%) (Auto) 18.4 H 3.0-13.0 % Eosinophils (%) (Auto) 0.1 0.0-8.0 % Basophils (%) (Auto) 0.3 0.0-5.0 % Neutrophils # (Auto) 8.2 H 1.8-7.7 K/uL Lymphocytes # (Auto) 0.6 L 1.0-4.8 K/uL Monocytes # (Auto) 2.1 H 0.1-1.0 K/uL Eosinophils # (Auto) 0.01 0.00-0.70 K/uL Basophils # (Auto) 0.03 0.00-0.20 K/uL Absolute Immature Granulocyte (auto 0.28 0-1 K/uL Nucleated Red Blood Cells 0.0 0.0-0.19 % Sodium Level 142 136-145 mmol/L Potassium Level 4.1 3.5-5.1 mmol/L Chloride Level 107 101-111 mmol/L Carbon Dioxide Level 27 21-32 mmol/L Blood Urea Nitrogen 25 H 7-18 mg/dL Creatinine 1.1 0.5-1.3 mg/dL Glomerular Filtration Rate Calc 74 >90 mL/min Random Glucose 116 H 70-105 mg/dL Total Calcium 8.7 8.5-10.1 mg/dL C-Reactive Protein, Quantitative 54.50 H 0.5-3.0 mg/L Procalcitonin 0.31 0.05-0.5 ng/mL Hemoglobin A1c 4.9 4.0-6.0 % Estimated Average Glucose (eAG) 94 70-126 mg/dL Uric Acid 5.4 2.6-7.2 mg/dL Magnesium Level 2.10 1.80-2.40 mg/dL Lactate Dehydrogenase 185 81-234 U/L Triglycerides Level 98 30-200 mg/dL Cholesterol Level 159 <200 mg/dL LDL Cholesterol 92 0-99 mg/dL HDL Cholesterol 45 29-71 mg/dL Current Medications Medications (Trade) Dose Ordered Sig/Antonio Route PRN Reason Start Time Stop Time Status Last Admin Dose Admin Acetaminophen (TYLenol 325MG TAB) 650 mg Q4H PRN PO TEMPERATURE GREATER THAN 101.5 02/19/25 16:00 03/21/25 15:59 Acetaminophen (TYLenol 325MG TAB) 650 mg Q6H PRN PO MILD PAIN (1-3) 02/19/25 16:00 03/21/25 15:59 Acetaminophen/ Codeine Phosphate (TYLenol-coDEINE TAB) 2 tab Q4H PRN PO MODERATE PAIN (4-6) 02/20/25 11:30 03/22/25 11:29 02/22/25 10:36 2 TAB Allopurinol (ZYLOprim 300MG) 300 mg DAILY PO 02/22/25 09:00 03/24/25 08:59 Aspirin (Aspirin 81mg Chew Tab) 81 mg DAILY PO 02/21/25 09:00 03/23/25 08:59 02/21/25 09:26 81 MG Atorvastatin Calcium (LIPItor 40MG) 40 mg HS PO 02/20/25 21:00 03/22/25 20:59 02/21/25 21:23 40 MG Clopidogrel Bisulfate (plaVIX 75MG) 75 mg DAILY PO 02/21/25 09:00 03/23/25 08:59 Famotidine (Pepcid 20mg Tab) 20 mg BID PO 02/20/25 21:00 03/22/25 20:59 02/21/25 21:23 20 MG Heparin Sodium (Porcine) (HEParin 5,000 UNIT VIAL) 5,000 unit Q12H SQ 02/20/25 16:00 03/22/25 15:59 02/22/25 03:50 5,000 UNIT Methylprednisolone Sodium Succinate (Solu-medROL 40MG) 40 mg DAILY IVP 02/20/25 15:00 03/22/25 14:59 02/22/25 08:11 40 MG Morphine Sulfate (morPHINE 4MG SYG) 2 mg Q4H PRN IVP SEVERE PAIN (7-10) 02/19/25 16:00 02/26/25 15:59 02/20/25 13:08 2 MG Ondansetron HCl (zoFRAN 4MG INJ) 4 mg Q6H PRN IVP NAUSEA/VOMITING 02/19/25 16:00 03/21/25 15:59 Piperacillin Sod/ Tazobactam Sod (Zosyn 3.375gm+NS 50ml) 3.375 gm Q8H IVPB 02/19/25 16:00 03/01/25 15:59 02/22/25 08:08 3.375 GM Sodium Chloride (NS 50ml) 50 ml AD IV 02/19/25 23:00 02/20/25 11:44 DC Vancomycin HCl 250 ml @ 125 mls/hr Q24H IV 02/20/25 17:00 03/02/25 16:59 02/21/25 17:09 125 MLS/HR Vancomycin HCl (Vancomycin Protocol) 1 each AD IV 02/19/25 16:00 03/05/25 15:59 DIAGNOSTICS / RADIOLOGY: [ ] ASSESSMENT: Gangrene of the left 5th toe due to possible vascular compromise, POA Sepsis due to possible secondary infection of the gangrene Myelodysplastic syndrome on chemotherapy (immunocompromised state), POA Acute gout flare (less likely given necrosis and trauma history), POA Acute kidney injury, POA Anemia, POA PLAN: Gangrene of the left 5th toe due to possible vascular compromise, POA * He had a severe pain 10 days back with purplish discoloration which progressed to a black eschar like lesion on the left 5th toe. Foot x-ray did not reveal any acute osseous injury. Arterial ultrasound revealed calcified 60-70% stenosis in left mid superficial artery with no flow in right proximal superficial artery. * Consulted cardiology. Cardiology recommended percutaneous catheterization scheduled today. Patient is started on aspirin 81 mg, clopidogrel 75 mg and atorvastatin 40 mg daily. Sepsis due to possible secondary infection of the gangrene, POA * Presented with pulse 132, temperature 100.8, CRP 16, procalcitonin 0.95, lactate 2.5, ESR 38. 24 hour blood culture negative * Started on empiric antibiotic vancomycin and Zosyn * Consulted ID for the further recommendations. Consulted Podiatry for necessary intervention Myelodysplastic syndrome on chemotherapy (immunocompromised state), POA * Consulted Hematology and Oncology Acute gout flare (less likely given necrosis and trauma history), POA * Patient has a history of gout. Uric acid 5.4 * Continue Solu-Medrol * Continue allopurinol Acute kidney injury, POA * Creatinine 1.3>1.1 * We will avoid nephrotoxic drugs and monitor the renal function. * We will get urinalysis with urine creatinine and electrolytes. Anemia, POA * Hemoglobin 11.6 * We will get anemia panel. DVT prophylaxis: Heparin 5000 units b.i.d. GI prophylaxis: Famotidine 20 mg b.i.d. ATTESTATION BY PHYSICIAN I have seen and examined the patient. I reviewed the documentation, medical decision making, and treatment plan as noted by the resident provider above. I agree with the findings and plan of care. Jasbir Valles IV, MD, SUNIL MD Feb 22, 2025 13:30
--- NOTE | 2025-02-22 21:40 | PN ---
INFECTIOUS DISEASE PROGRESS NOTE Date of Service: Feb 22, 2025 SUBJECTIVE: This is a 69-year-old male patient admitted with pain and necrosis to the left 5th toe. Per report rib bender trying to scheduled patient for a peripheral angiogram possible for today. Patient reported that the gout pain has improved a lot with the steroids. WBC went up to 11.2 secondary to the steroids but remains afebrile, temperature is 97.5. We will continue on vancomycin and Zosyn. PHYSICAL EXAM EYES: Anicteric. Pupils equal and reactive. HENT: No oral thrush seen, moist Oral mucosa NECK: Supple, no JVD or thyromegaly. LUNGS: Good air entry. No rales, no rhonchi. CARDIOVASCULAR: S1, S2 regular. No murmur heard. ABDOMEN: Soft, non tender, bowel sounds present, no organomegaly CENTRAL NERVOUS SYSTEM: Awake, alert, oriented x 3. No focal deficits. SKIN: No rashes, no swelling. Left 5th toe with gangrene. Left foot swelling and cellulitis. LYMPHATICS: No peripheral lymphadenopathy MUSCULOSKELETAL: No joint swelling, erythema or tenderness. EXTREMITIES: No cyanosis or clubbing. Left 5th toe gangrene. BACK: No deformity, no pressure ulcer. GENITOURINARY: No dysuria or hematuria. Vital Sign (Last 12 Hours) 02/22/25 02/22/25 02/22/25 11:54 16:18 20:39 Temp 97.5 98.2 97.9 Pulse 60 75 58 Resp 18 18 20 B/P (MAP) 150/70 137/66 134/66 Pulse Ox 96 94 96 O2 Delivery Room Air Room Air Room Air Intake & Output (last 24hrs) 02/21/25 02/21/25 02/22/25 15:00 23:00 07:00 Intake Total 350.0 ml 530.0 ml Balance 350.0 ml 530.0 ml LABS: Laboratory: Test 02/22/25 15:54 02/22/25 04:13 02/21/25 03:57 Range/Units Vancomycin Level Trough 10.7 10.0-20.0 UG/ML White Blood Count 11.2 H 4.8-10.8 K/uL Red Blood Count 3.50 L 4.50-6.20 MIL/uL Hemoglobin 11.6 L 14.0-18.0 g/dL Hematocrit 36.2 L 42-54 % Mean Corpuscular Volume 103.4 H 79-99 fL Mean Corpuscular Hemoglobin 33.1 H 27.0-33.0 pg Mean Corpuscular Hemoglobin Concent 32.0 32.0-36.0 g/dL Red Cell Distribution Width 16.3 H 11.0-15.5 % Platelet Count 244 130-400 K/uL Mean Platelet Volume 10.7 H 7.5-10.5 fL Immature Granulocyte % (Auto) 2.5 H 0-1 % Neutrophils (%) (Auto) 73.2 40.0-77.0 % Lymphocytes (%) (Auto) 5.5 L 21.0-51.0 % Monocytes (%) (Auto) 18.4 H 3.0-13.0 % Eosinophils (%) (Auto) 0.1 0.0-8.0 % Basophils (%) (Auto) 0.3 0.0-5.0 % Neutrophils # (Auto) 8.2 H 1.8-7.7 K/uL Lymphocytes # (Auto) 0.6 L 1.0-4.8 K/uL Monocytes # (Auto) 2.1 H 0.1-1.0 K/uL Eosinophils # (Auto) 0.01 0.00-0.70 K/uL Basophils # (Auto) 0.03 0.00-0.20 K/uL Absolute Immature Granulocyte (auto 0.28 0-1 K/uL Nucleated Red Blood Cells 0.0 0.0-0.19 % Sodium Level 142 136-145 mmol/L Potassium Level 4.1 3.5-5.1 mmol/L Chloride Level 107 101-111 mmol/L Carbon Dioxide Level 27 21-32 mmol/L Blood Urea Nitrogen 25 H 7-18 mg/dL Creatinine 1.1 0.5-1.3 mg/dL Glomerular Filtration Rate Calc 74 >90 mL/min Random Glucose 116 H 70-105 mg/dL Total Calcium 8.7 8.5-10.1 mg/dL C-Reactive Protein, Quantitative 54.50 H 0.5-3.0 mg/L Procalcitonin 0.31 0.05-0.5 ng/mL Hemoglobin A1c 4.9 4.0-6.0 % Estimated Average Glucose (eAG) 94 70-126 mg/dL Uric Acid 5.4 2.6-7.2 mg/dL Magnesium Level 2.10 1.80-2.40 mg/dL Lactate Dehydrogenase 185 81-234 U/L Triglycerides Level 98 30-200 mg/dL Cholesterol Level 159 <200 mg/dL LDL Cholesterol 92 0-99 mg/dL HDL Cholesterol 45 29-71 mg/dL ASSESSMENT: Left 5th toe gangrene. Left foot cellulitis. Myelodysplastic syndrome, on chemotherapy, underlying myelosuppression. Gout with possible flare-up. PLAN: Continue vancomycin per pharmacy protocol. Continue Zosyn IV. Continue pain management. Continue wound care. Rn Procedures following patient. Continue Solu-Medrol IV. Pending a peripheral angiogram. This case was reviewed and discussed with my supervising physician Dr. Chapman and the above assessment and plan was formulated and agreed upon. ATTESTATION BY PHYSICIAN I have seen and examined the patient. I reviewed the documentation, medical decision making, and treatment plan as noted by the mid-level provider above. I agree with the findings and plan of care. RIC CHAPMAN MD, [facility] Feb 22, 2025 21:40
[2025-02-23] VITALS (8 sets, daily range): BP systolic 121–157; BP diastolic 76–97; PULSE 52–60; RESP 18–20; TEMP 97.4–98.1; O2SAT 97
[2025-02-23 04:36] LABS: IMMATURE GRANULOCYTE ABSOLUTE 0.29 K/uL (0-1); NUCLEATED RED BLOOD CELLS 0.0 % (0.0-0.19); PLATELET COUNT (AUTO) 237 K/uL (130-400); RED BLOOD CELL COUNT(AUTO) 3.56 MIL/uL (4.50-6.20); RED CELL DISTRIBUTION WIDTH 16.5 % (11.0-15.5); WHITE BLOOD COUNT (AUTO) 8.3 K/uL (4.8-10.8)
[2025-02-23 05:18] LABS: % IRON SATURATION 35.4 % (30-44); IRON, SERUM 125.0 mcg/dL (65-175)
[2025-02-23 05:22] LABS: CREATININE 1.2 mg/dL (0.5-1.3); GLOMERULAR FILTR. RATE CALC 66.0 mL/min (>90); GLUCOSE,RANDOM 122.0 mg/dL (70-105); SODIUM SERUM 142.0 mmol/L (136-145); UREA NITROGEN, BLOOD 26.0 mg/dL (7-18)
--- NOTE | 2025-02-23 09:39 | PN ---
[facility] CARDIOLOGY PROGRESS NOTE Date Patient Seen: Feb 23, 2025 Time of Visit: 09:05 Interval History: This is a 69-year-old male with a past medical history of hypertension, MDS on chemotherapy followed by Dr. Simms, and gout who who was admitted due to left 5th toe gangrene. He reports no prior history of type 2 diabetes mellitus. He had reported an 8 day history of progressive redness, swelling, discoloration, painful left toe after stubbing his toe. He was noted to have gangrenous changes on admission with lower extremity edema and erythema. He underwent bilateral lower extremity arterial Doppler studies on 02/19/2025 which demonstrated- left lower limb arteries demonstrate biphasic to monophasic waveforms in all arteries except the distal superficial femoral artery which demonstrates triphasic waveform. Calcified plaque in the left mid superficial femoral artery causing about 60% to 70% diameter stenosis. No flow in the right proximal superficial femoral artery, remainder of the right lower limb arteries demonstrate biphasic to monophasic waveforms in all arteries. Left lower extremity venous Doppler on 02/19/2025 was negative for DVT. He was offered peripheral angiography which has been delayed. He is scheduled for peripheral angiogram on Tuesday. He offers no cardiac complaints overnight including chest pain, orthopnea, PND or dyspnea. He continues to have intermittent stabbing pains to the left toe. Physical Examination: GENERAL: No acute distress. HEAD: Normal with no signs of head trauma. EYES: PERRLA, EOMI, conjunctiva and sclera normal. NECK: Supple without JVD. There is no tenderness, lymphadenopathy, or masses. No thyromegaly. Normal carotid upstrokes without bruits. LUNGS: Clear breath sounds bilaterally. No wheezes, or rhonchi. HEART: Normal rate and rhythm. Normal S1 and S2 without murmurs, gallop or rub. VASC: +1-2 edema to the left lower extremity more in the foot. The left dorsalis pedis pulse is nonpalpable and very weak with Doppler. The left posterior tibial pulse is present with Doppler. The right dorsalis pedis pulse is 2+ in the right posterior tibial pulses 1+ palpable. There is erythema to the left foot and +2 edema EXT: No clubbing, cyanosis. NEURO: Awake, alert, and oriented x3. No focal neurological deficits noted. Laboratory: Hematology Labs: Test 02/23/25 04:15 Range/Units White Blood Count 8.3 4.8-10.8 K/uL Red Blood Count 3.56 L 4.50-6.20 MIL/uL Hemoglobin 11.5 L 14.0-18.0 g/dL Hematocrit 37.3 L 42-54 % Mean Corpuscular Volume 104.8 H 79-99 fL Mean Corpuscular Hemoglobin 32.3 27.0-33.0 pg Mean Corpuscular Hemoglobin Concent 30.8 L 32.0-36.0 g/dL Red Cell Distribution Width 16.5 H 11.0-15.5 % Platelet Count 237 130-400 K/uL Mean Platelet Volume 11.4 H 7.5-10.5 fL Immature Granulocyte % (Auto) 3.5 H 0-1 % Neutrophils (%) (Auto) 67.0 40.0-77.0 % Lymphocytes (%) (Auto) 9.4 L 21.0-51.0 % Monocytes (%) (Auto) 19.7 H 3.0-13.0 % Eosinophils (%) (Auto) 0.2 0.0-8.0 % Basophils (%) (Auto) 0.2 0.0-5.0 % Neutrophils # (Auto) 5.6 1.8-7.7 K/uL Lymphocytes # (Auto) 0.8 L 1.0-4.8 K/uL Monocytes # (Auto) 1.6 H 0.1-1.0 K/uL Eosinophils # (Auto) 0.02 0.00-0.70 K/uL Basophils # (Auto) 0.02 0.00-0.20 K/uL Absolute Immature Granulocyte (auto 0.29 0-1 K/uL Nucleated Red Blood Cells 0.0 0.0-0.19 % Reticulocyte Count (auto) 2.90523 0.42-2.23 % Immature Reticulocyte Fraction 8.80 H 0.18-0.48 % Chemistry Labs: Test 02/23/25 04:15 02/22/25 04:13 Range/Units Sodium Level 142 136-145 mmol/L Potassium Level 4.3 3.5-5.1 mmol/L Chloride Level 107 101-111 mmol/L Carbon Dioxide Level 26 21-32 mmol/L Blood Urea Nitrogen 26 H 7-18 mg/dL Creatinine 1.2 0.5-1.3 mg/dL Glomerular Filtration Rate Calc 66 >90 mL/min Random Glucose 122 H 70-105 mg/dL Total Calcium 8.9 8.5-10.1 mg/dL Magnesium Level 2.20 1.80-2.40 mg/dL Iron Level 125 65-175 mcg/dL Total Iron Binding Capacity 353 250-450 mcg/dL Percent Iron Saturation 35.4 30-44 % Ferritin 706 H 30-400 ng/mL Vitamin B12 Level 1053 H 193-986 pg/mL C-Reactive Protein, Quantitative 54.50 H 0.5-3.0 mg/L Procalcitonin 0.31 0.05-0.5 ng/mL Diagnostics / Radiology: Impression and Plan: Gangrene of the left 5th toe: Sepsis on admission secondary to left 5th toe gangrene: -continue wound care and antibiotic therapy Peripheral artery disease with arterial Doppler of the lower extremities 02/19/2025 demonstrating biphasic and monophasic waveforms in the left lower extremity except the distal superficial femoral artery which demonstrates triphasic waveform, there is calcified plaque in the left mid superficial femoral artery causing about 60% to 70% diameter stenosis. No flow in the right proximal superficial femoral artery, remainder of the right lower limb arteries demonstrate biphasic to monophasic waveforms in all arteries: -continue dual antiplatelet therapy, continue statin therapy -plans are to proceed with peripheral angiogram on Tuesday Comorbidities: Gout Myelodysplastic syndrome on chemotherapy (immunocompromised state) PHYSICIAN ATTESTATION OF PHYSICIAN ROLL FINISHER DOCUMENTATION: I attest that I was physically present for the [place] portions of the service and evaluated the patient with the Physician Cabin Cleaner, and I reviewed and discussed the case with the Physician Cabin Cleaner and made modifications to the Physician Cabin Cleaner's findings and plans of care as documented above NICK DONALDSON Feb 23, 2025 09:39 SERGEI RODRIGUEZ MD Feb 23, 2025 15:39
[2025-02-23] MEDS ORDERED: THIA100T75 PO (10:13)
[2025-02-23] MEDS ORDERED: VITA1CAP85 PO (10:13)
[2025-02-23] MEDS ORDERED: CYAN-35 PO (10:13)
[2025-02-23] MEDS ORDERED: PRED10TA23 PO (10:13)
[2025-02-23 17:36] LABS: APPEARANCE,URINE CLEAR (CLEAR); GLUCOSE, URINE (UA) NEGATIVE (NEGATIVE); LEUKOCYTE ESTERASE ,URINE NEGATIVE Leu/uL (NEGATIVE); NITRATE,URINE NEGATIVE (NEGATIVE); OCCULT BLOOD,URINE NEGATIVE (NEGATIVE)
[2025-02-23 17:37] LABS: SQUAMOUS EPITHELIAL CELL,UR RARE /HPF (0-2)
[2025-02-23 17:39] LABS: CREATININE,URINE RANDOM 36.73 mg/dL (30-135)
--- NOTE | 2025-02-23 17:45 | PN ---
[facility] PROGRESS NOTE Date of Service: Feb 23, 2025 Time of Service: 17:23 SUBJECTIVE: Mr. Murray Reina is a 69-year-old male who presents to the emergency department with complaints of severe pain and necrosis of the left fifth toe. The patient reports that the pain began approximately eight days ago, initially attributing it to a possible gout attack. Several days later, he stubbed his left pinky toe, after which he noticed progressive discoloration and necrosis of the toe, accompanied by worsening pain, which he rates as 30/10 in severity. He has a significant past medical history of myelodysplastic syndrome, diagnosed one year ago, and is currently under the care of Dr. Hubert Simms. He receives monthly chemotherapy but canceled his scheduled treatment today due to his current condition. The patient also reports that he has not refilled two of his regular medications after returning from a recent vacation. Over the past week, he has observed increasing swelling, redness, and inflammation of the left lower extremity. He denies current fever but endorses intermittent chills and subjective low-grade fevers over the past week. He denies any other complaints aside from the severe pain in the affected toe. In the emergency department, an X-ray of the left foot was performed, revealing soft tissue swelling, no acute osseous injury, mild degenerative changes of the first metatarsophalangeal joint, and dorsal tissue swelling. Evaluation noted plantar surface with black necrotic tissue/eschar. Surrounding tissue is red. Periwound is mild erythematous with dry and scaly. He has been referred to the hospitalist service for further evaluation and management. 02/20/2025: He was evaluated at the bedside this morning. He is AAO x3 he complained of pain in his left foot which has slightly improved. The black necrotic eschar was noted on his left 5th toe. Remarkable lab is for ESR 38, CRP 16, procalcitonin 0.94, lactate 2.5, creatinine 1.3. potassium 3.7. Atrial ultrasound revealed 60-70% left mid superficial artery stenosis with no flow in right proximal superficial artery. Cardiology is consulted for the necessary intervention the peripheral artery disease leading to dry gangrene of left 5th toe. ID consulted for possible sepsis. Podiatry consulted for the gangrenous left foot. Rest of the plan as discussed below 02/21/2025: He was evaluated at the bedside this morning. No overnight event. He is AAO x3. He complains of mild left foot pain. He is hemodynamically stable and labs remarkable for CRP 98, creatinine 1.3, procalcitonin 0.94, hemoglobin 11.9. Cardiology want angiogram of the bilateral limb but patient denied the catheterization. We will defer the catheterization for now. He is continued on vancomycin, Zosyn and Solu-Medrol along with aspirin, Plavix and atorvastatin. ID is on board. Podiatry consulted for the gangrene of the left 5th toe. Rest of the plan as discussed below. 02/22/2025: He was evaluated at the bedside this morning. No Overnight event. Who is AAO x3. He complains of mild left foot pain. He is hemodynamically stable and labs remarkable for CRP 54, Cr 1.1, procalcitonin 0.94, Hb 11.6. Patient denies palpitation yesterday but he agreed for today. Cardiology going to scheduling for catheterization today. He is continued on vancomycin, Zosyn and Solu-Medrol along with aspirin, Plavix and atorvastatin. ID is on board. Podiatry consulted for the gangrene of the left 5th toe. Rest of the plan as discussed below. 02/23/2025: He was evaluated at the bedside this morning. No Overnight event. Who is AAO x3. He complains of mild left foot pain. Vital signs are in the normal range. Labs are normal except for Hb 11.5, BUN 26, glucose 122, ferritin 706, vitamin B12 1053. Blood culture showed no growth after 4 days. Today morning blood pressure is 151/91 and we started his home medication lisinopril. After the medication his blood pressure is in the normal range. Actually he is supposed to be scheduled for angiography and potential revascularization yesterday by Dr. 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 The doctor who is instructional coordinator will not perform the procedure. So they are planning to the procedure on Tuesday. After the procedure the Dr. Dean wanted to do amputation of left toe. REVIEW OF SYSTEMS CONSTITUTIONAL: Denies fevers, chills, or night sweats. No unintentional weight loss reported. NEUROLOGICAL: Denies headache, amaurosis fugax, motor weakness, sensory deficit, vertigo/spinning sensation, gait abnormalities, or tremors. ENT: No hearing loss, otalgia, otorrhea, rhinitis, rhinorrhea, hoarseness, or sore throat. CARDIOVASCULAR: Denies any exertional angina, dyspnea on exertion, orthopnea, paroxysmal nocturnal dyspnea, palpitations, life-threatening arrhythmias, claudication. PULMONARY: Denies any shortness of breath, cough, phlegm/sputum, hemoptysis, pleuritic chest pain. SLEEP: Denies morning headaches, daytime somnolence or napping. Denies difficulty falling asleep, staying asleep, waking from sleep. Denies knowledge of snoring. GASTROINTESTINAL: Denies any type of dysphagia to either liquids or solids. Denies nausea, vomiting, pyrosis, early satiety, abdominal pain, diarrhea, constipation, or changes in stool consistency or caliber. Denies coffee-ground emesis, hematemesis, hematochezia, or melanotic stools. GENITOURINARY: Denies frequency, urgency, nocturia, hematuria or incontinence (Storage/Irritative symptoms.) Low urinary stream, straining to void, urinary intermittency or hesitancy, splitting of the voiding stream, terminal dribbling. ENDOCRINOLOGIC: Denies polyuria, polydipsia, polyphagia or heat/cold intolerances. HEMATOLOGIC: Denies thrombophilia/previous clots, or coagulopathy/bleeding disorders. ONCOLOGIC: Denies personal history of malignancy. DERMATOLOGIC: Denies rashes or pruritus. PSYCHIATRIC: Denies any suicidal or homicidal ideation. Denies hallucinations. PHYSICAL EXAM GENERAL APPEARANCE: The patient is awake, alert, and oriented, in no acute cardiopulmonary distress. NEUROLOGICAL: Cranial nerves II-XII grossly intact. Motor is 5/5 in bilateral upper and lower extremities proximal to distal. No sensory deficits. HEENT: Face is symmetric. NECK: Supple. No JVD. No thyromegaly. CHEST: Normal chest expansion. No Telemetry. LUNGS: Absence of any rales, rhonchi or any wheezing. CARDIOVASCULAR: Regular. S1 and S2 normal. No appreciable rubs, murmurs or gallops. ABDOMEN: Soft, nontender, and nondistended. There is no rebound, voluntary guarding, or rigidity. : Deferred. No Swanson. EXTREMITIES: Necrotic gangrenous left 5th toe, SKIN: No skin breakdown. Vital Signs (last 8hr) Date Time Temp Pulse Resp B/P (MAP) Pulse Ox O2 Delivery O2 Flow Rate FiO2 02/23/25 16:00 97.5 52 18 121/77 97 02/23/25 12:02 97.7 57 20 151/80 98 Room Air LABS: Laboratory: Test 02/23/25 04:15 02/22/25 15:54 02/22/25 04:13 Range/Units White Blood Count 8.3 4.8-10.8 K/uL Red Blood Count 3.56 L 4.50-6.20 MIL/uL Hemoglobin 11.5 L 14.0-18.0 g/dL Hematocrit 37.3 L 42-54 % Mean Corpuscular Volume 104.8 H 79-99 fL Mean Corpuscular Hemoglobin 32.3 27.0-33.0 pg Mean Corpuscular Hemoglobin Concent 30.8 L 32.0-36.0 g/dL Red Cell Distribution Width 16.5 H 11.0-15.5 % Platelet Count 237 130-400 K/uL Mean Platelet Volume 11.4 H 7.5-10.5 fL Immature Granulocyte % (Auto) 3.5 H 0-1 % Neutrophils (%) (Auto) 67.0 40.0-77.0 % Lymphocytes (%) (Auto) 9.4 L 21.0-51.0 % Monocytes (%) (Auto) 19.7 H 3.0-13.0 % Eosinophils (%) (Auto) 0.2 0.0-8.0 % Basophils (%) (Auto) 0.2 0.0-5.0 % Neutrophils # (Auto) 5.6 1.8-7.7 K/uL Lymphocytes # (Auto) 0.8 L 1.0-4.8 K/uL Monocytes # (Auto) 1.6 H 0.1-1.0 K/uL Eosinophils # (Auto) 0.02 0.00-0.70 K/uL Basophils # (Auto) 0.02 0.00-0.20 K/uL Absolute Immature Granulocyte (auto 0.29 0-1 K/uL Nucleated Red Blood Cells 0.0 0.0-0.19 % Reticulocyte Count (auto) 2.67010 0.42-2.23 % Immature Reticulocyte Fraction 8.80 H 0.18-0.48 % Sodium Level 142 136-145 mmol/L Potassium Level 4.3 3.5-5.1 mmol/L Chloride Level 107 101-111 mmol/L Carbon Dioxide Level 26 21-32 mmol/L Blood Urea Nitrogen 26 H 7-18 mg/dL Creatinine 1.2 0.5-1.3 mg/dL Glomerular Filtration Rate Calc 66 >90 mL/min Random Glucose 122 H 70-105 mg/dL Total Calcium 8.9 8.5-10.1 mg/dL Magnesium Level 2.20 1.80-2.40 mg/dL Iron Level 125 65-175 mcg/dL Total Iron Binding Capacity 353 250-450 mcg/dL Percent Iron Saturation 35.4 30-44 % Ferritin 706 H 30-400 ng/mL Vitamin B12 Level 1053 H 193-986 pg/mL Vancomycin Level Trough 10.7 10.0-20.0 UG/ML C-Reactive Protein, Quantitative 54.50 H 0.5-3.0 mg/L Procalcitonin 0.31 0.05-0.5 ng/mL Current Medications Medications (Trade) Dose Ordered Sig/Antonio Route PRN Reason Start Time Stop Time Status Last Admin Dose Admin Acetaminophen (TYLenol 325MG TAB) 650 mg Q4H PRN PO TEMPERATURE GREATER THAN 101.5 02/19/25 16:00 03/21/25 15:59 Acetaminophen (TYLenol 325MG TAB) 650 mg Q6H PRN PO MILD PAIN (1-3) 02/19/25 16:00 03/21/25 15:59 Acetaminophen/ Codeine Phosphate (TYLenol-coDEINE TAB) 2 tab Q4H PRN PO MODERATE PAIN (4-6) 02/20/25 11:30 03/22/25 11:29 02/23/25 15:26 2 TAB Allopurinol (ZYLOprim 300MG) 300 mg DAILY PO 02/22/25 09:00 03/24/25 08:59 02/23/25 08:31 300 MG Aspirin (Aspirin 81mg Chew Tab) 81 mg DAILY PO 02/21/25 09:00 03/23/25 08:59 02/23/25 08:30 81 MG Atorvastatin Calcium (LIPItor 40MG) 40 mg HS PO 02/20/25 21:00 03/22/25 20:59 02/22/25 23:38 40 MG Clopidogrel Bisulfate (plaVIX 75MG) 75 mg DAILY PO 02/21/25 09:00 03/23/25 08:59 02/23/25 08:31 75 MG Famotidine (Pepcid 20mg Tab) 20 mg BID PO 02/20/25 21:00 03/22/25 20:59 02/23/25 08:30 20 MG Heparin Sodium (Porcine) (HEParin 5,000 UNIT VIAL) 5,000 unit Q12H SQ 02/20/25 16:00 03/22/25 15:59 02/23/25 15:26 5,000 UNIT Methylprednisolone Sodium Succinate (Solu-medROL 40MG) 40 mg DAILY IVP 02/20/25 15:00 03/22/25 14:59 02/23/25 08:31 40 MG Morphine Sulfate (morPHINE 4MG SYG) 2 mg Q4H PRN IVP SEVERE PAIN (7-10) 02/19/25 16:00 02/26/25 15:59 02/20/25 13:08 2 MG Ondansetron HCl (zoFRAN 4MG INJ) 4 mg Q6H PRN IVP NAUSEA/VOMITING 02/19/25 16:00 03/21/25 15:59 Piperacillin Sod/ Tazobactam Sod (Zosyn 3.375gm+NS 50ml) 3.375 gm Q8H IVPB 02/19/25 16:00 03/01/25 15:59 02/23/25 15:25 3.375 GM Sodium Chloride (NS 50ml) 50 ml AD IV 02/19/25 23:00 02/20/25 11:44 DC Vancomycin HCl 250 ml @ 125 mls/hr Q24H IV 02/20/25 17:00 03/02/25 16:59 02/23/25 16:37 125 MLS/HR Vancomycin HCl (Vancomycin Protocol) 1 each AD IV 02/19/25 16:00 03/05/25 15:59 DIAGNOSTICS / RADIOLOGY: [ ] ASSESSMENT: Gangrene of the left 5th toe due to possible vascular compromise, POA Sepsis due to possible secondary infection of the gangrene Myelodysplastic syndrome on chemotherapy (immunocompromised state), POA Acute gout flare (less likely given necrosis and trauma history), POA Acute kidney injury, POA Anemia, POA PLAN: Gangrene of the left 5th toe due to possible vascular compromise, POA * He had a severe pain 10 days back with purplish discoloration which progressed to a black eschar like lesion on the left 5th toe. Foot x-ray did not reveal any acute osseous injury. Arterial ultrasound revealed calcified 60-70% stenosis in left mid superficial artery with no flow in right proximal superficial artery. * Consulted cardiology. Patient is started on aspirin 81 mg, clopidogrel 75 mg and atorvastatin 40 mg daily. * Actually he is supposed to be scheduled for angiography and potential revascularization yesterday by Dr. 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 The doctor who is instructional coordinator will not perform the procedure. So they are planning to the procedure on Tuesday. Sepsis due to possible secondary infection of the gangrene, POA * Presented with pulse 132, temperature 100.8, CRP 16, procalcitonin 0.95, lactate 2.5, ESR 38. 24 hour blood culture negative * Started on empiric antibiotic vancomycin and Zosyn * Consulted ID for the further recommendations. Consulted Podiatry for necessary intervention * After the procedure the Dr. Dean wanted to do amputation of left toe. Myelodysplastic syndrome on chemotherapy (immunocompromised state), POA * Consulted Hematology and Oncology Acute gout flare (less likely given necrosis and trauma history), POA * Patient has a history of gout. Uric acid 5.4 * Continue Solu-Medrol * Continue allopurinol Acute kidney injury, POA * Creatinine 1.3>1.1>1.2 * We will avoid nephrotoxic drugs and monitor the renal function. * We will get urinalysis with urine creatinine and electrolytes. Anemia, POA * Hemoglobin 11.5, MCV is 104.8, RDW is 16.5 * We will get anemia panel. * Iron is 125, TIBC is 353, % sat is 35.4, ferritin is 706, vitamin B12 is 1053. DVT prophylaxis: Heparin 5000 units b.i.d. GI prophylaxis: Famotidine 20 mg b.i.d. ATTESTATION BY PHYSICIAN I have seen and examined the patient. I reviewed the documentation, medical decision making, and treatment plan as noted by the resident provider above. I agree with the findings and plan of care. Jasbir Valles IV, MD, AKSHAY MD Feb 23, 2025 17:45
[2025-02-24 00:19] VITALS: BP 142/68; PULSE 50; RESP 19; TEMP 98.1
[2025-02-24 04:14] VITALS: BP 153/74; PULSE 51; RESP 18; TEMP 97.6
[2025-02-24 04:33] LABS: NUCLEATED RED BLOOD CELLS 0.0 % (0.0-0.19); PLATELET COUNT (AUTO) 285.0 K/uL (130-400); RED BLOOD CELL COUNT(AUTO) 3.64 MIL/uL (4.50-6.20); RED CELL DISTRIBUTION WIDTH 16.1 % (11.0-15.5); WHITE BLOOD COUNT (AUTO) 10.2 K/uL (4.8-10.8)
[2025-02-24 04:49] LABS: CREATININE 1.1 mg/dL (0.5-1.3); GLOMERULAR FILTR. RATE CALC 74.0 mL/min (>90); GLUCOSE,RANDOM 86.0 mg/dL (70-105); SODIUM SERUM 141.0 mmol/L (136-145); UREA NITROGEN, BLOOD 20.0 mg/dL (7-18)
[2025-02-24 08:00] VITALS: BP 159/77; PULSE 58; RESP 18; TEMP 97.3; O2SAT 97
[2025-02-24] MEDS: LISINOPRIL 10 MG TABLET PO SCH (08:39)
--- NOTE | 2025-02-24 08:52 | PN ---
[facility] CARDIOLOGY PROGRESS NOTE Date Patient Seen: Feb 24, 2025 Time of Visit: 08:51 Interval History: This is a 69-year-old male with a past medical history of hypertension, MDS on chemotherapy followed by Dr. Simms, and gout who who was admitted due to left 5th toe gangrene. He reports no prior history of type 2 diabetes mellitus. He had reported an 8 day history of progressive redness, swelling, discoloration, painful left toe after stubbing his toe. He was noted to have gangrenous changes on admission with lower extremity edema and erythema. He underwent bilateral lower extremity arterial Doppler studies on 02/19/2025 which demonstrated- left lower limb arteries demonstrate biphasic to monophasic waveforms in all arteries except the distal superficial femoral artery which demonstrates triphasic waveform. Calcified plaque in the left mid superficial femoral artery causing about 60% to 70% diameter stenosis. No flow in the right proximal superficial femoral artery, remainder of the right lower limb arteries demonstrate biphasic to monophasic waveforms in all arteries. Left lower extremity venous Doppler on 02/19/2025 was negative for DVT. He was offered peripheral angiography which has been delayed. He is scheduled for peripheral angiogram on Tuesday. He offers no cardiac complaints overnight including chest pain, orthopnea, PND or dyspnea. He continues to have intermittent stabbing pains to the left toe. Physical Examination: GENERAL: No acute distress. HEAD: Normal with no signs of head trauma. EYES: PERRLA, EOMI, conjunctiva and sclera normal. NECK: Supple without JVD. There is no tenderness, lymphadenopathy, or masses. No thyromegaly. Normal carotid upstrokes without bruits. LUNGS: Clear breath sounds bilaterally. No wheezes, or rhonchi. HEART: Normal rate and rhythm. Normal S1 and S2 without murmurs, gallop or rub. VASC: +1-2 edema to the left lower extremity more in the foot. The left dorsalis pedis pulse is nonpalpable and very weak with Doppler. The left posterior tibial pulse is present with Doppler. The right dorsalis pedis pulse is 2+ in the right posterior tibial pulses 1+ palpable. There is erythema to the left foot and +2 edema EXT: No clubbing, cyanosis. NEURO: Awake, alert, and oriented x3. No focal neurological deficits noted. Laboratory: Hematology Labs: Test 02/24/25 04:10 02/23/25 04:15 Range/Units White Blood Count 10.2 4.8-10.8 K/uL Red Blood Count 3.64 L 4.50-6.20 MIL/uL Hemoglobin 12.0 L 14.0-18.0 g/dL Hematocrit 36.7 L 42-54 % Mean Corpuscular Volume 100.8 H 79-99 fL Mean Corpuscular Hemoglobin 33.0 27.0-33.0 pg Mean Corpuscular Hemoglobin Concent 32.7 32.0-36.0 g/dL Red Cell Distribution Width 16.1 H 11.0-15.5 % Platelet Count 285 130-400 K/uL Mean Platelet Volume 11.4 H 7.5-10.5 fL Nucleated Red Blood Cells 0.0 0.0-0.19 % Immature Granulocyte % (Auto) 3.5 H 0-1 % Neutrophils (%) (Auto) 67.0 40.0-77.0 % Lymphocytes (%) (Auto) 9.4 L 21.0-51.0 % Monocytes (%) (Auto) 19.7 H 3.0-13.0 % Eosinophils (%) (Auto) 0.2 0.0-8.0 % Basophils (%) (Auto) 0.2 0.0-5.0 % Neutrophils # (Auto) 5.6 1.8-7.7 K/uL Lymphocytes # (Auto) 0.8 L 1.0-4.8 K/uL Monocytes # (Auto) 1.6 H 0.1-1.0 K/uL Eosinophils # (Auto) 0.02 0.00-0.70 K/uL Basophils # (Auto) 0.02 0.00-0.20 K/uL Absolute Immature Granulocyte (auto 0.29 0-1 K/uL Reticulocyte Count (auto) 2.87728 0.42-2.23 % Immature Reticulocyte Fraction 8.80 H 0.18-0.48 % Chemistry Labs: Test 02/24/25 04:10 02/23/25 04:15 Range/Units Sodium Level 141 136-145 mmol/L Potassium Level 4.2 3.5-5.1 mmol/L Chloride Level 104 101-111 mmol/L Carbon Dioxide Level 27 21-32 mmol/L Blood Urea Nitrogen 20 H 7-18 mg/dL Creatinine 1.1 0.5-1.3 mg/dL Glomerular Filtration Rate Calc 74 >90 mL/min Random Glucose 86 70-105 mg/dL Total Calcium 9.1 8.5-10.1 mg/dL C-Reactive Protein, Quantitative 17.60 H 0.5-3.0 mg/L Magnesium Level 2.20 1.80-2.40 mg/dL Iron Level 125 65-175 mcg/dL Total Iron Binding Capacity 353 250-450 mcg/dL Percent Iron Saturation 35.4 30-44 % Ferritin 706 H 30-400 ng/mL Vitamin B12 Level 1053 H 193-986 pg/mL Diagnostics / Radiology: Impression and Plan: Gangrene of the left 5th toe: Sepsis on admission secondary to left 5th toe gangrene: -continue wound care and antibiotic therapy Peripheral artery disease with arterial Doppler of the lower extremities 02/19/2025 demonstrating biphasic and monophasic waveforms in the left lower extremity except the distal superficial femoral artery which demonstrates triphasic waveform, there is calcified plaque in the left mid superficial femoral artery causing about 60% to 70% diameter stenosis. No flow in the right proximal superficial femoral artery, remainder of the right lower limb arteries demonstrate biphasic to monophasic waveforms in all arteries: -continue dual antiplatelet therapy, continue statin therapy -plans are to proceed with peripheral angiogram on Tuesday -NPO after midnight Hypertension: -advance lisinopril to 20 mg p.o. daily Comorbidities: Gout Myelodysplastic syndrome on chemotherapy (immunocompromised state) PHYSICIAN ATTESTATION OF PHYSICIAN [employer]BER CRIME INVESTIGATOR DOCUMENTATION: I attest that I was physically present for the [place] portions of the service and evaluated the patient with the Physician Feed Blender, and I reviewed and discussed the case with the Physician Feed Blender and made modifications to the Physician Feed Blender's findings and plans of care as documented above NICK DONALDSON Feb 24, 2025 08:52 SERGEI RODRIGUEZ MD Feb 24, 2025 14:11
[2025-02-24 11:22] VITALS: BP 151/75; PULSE 58; RESP 18; TEMP 97.7
[2025-02-24] MEDS: LISINOPRIL 20 MG TABLET PO SCH (13:07)
--- NOTE | 2025-02-24 13:33 | PN ---
[facility] PROGRESS NOTE Date of Service: Feb 24, 2025 Time of Service: 13:26 SUBJECTIVE: Mr. Murray Reina is a 69-year-old male who presents to the emergency department with complaints of severe pain and necrosis of the left fifth toe. The patient reports that the pain began approximately eight days ago, initially attributing it to a possible gout attack. Several days later, he stubbed his left pinky toe, after which he noticed progressive discoloration and necrosis of the toe, accompanied by worsening pain, which he rates as 30/10 in severity. He has a significant past medical history of myelodysplastic syndrome, diagnosed one year ago, and is currently under the care of Dr. Hubert Simms. He receives monthly chemotherapy but canceled his scheduled treatment today due to his current condition. The patient also reports that he has not refilled two of his regular medications after returning from a recent vacation. Over the past week, he has observed increasing swelling, redness, and inflammation of the left lower extremity. He denies current fever but endorses intermittent chills and subjective low-grade fevers over the past week. He denies any other complaints aside from the severe pain in the affected toe. In the emergency department, an X-ray of the left foot was performed, revealing soft tissue swelling, no acute osseous injury, mild degenerative changes of the first metatarsophalangeal joint, and dorsal tissue swelling. Evaluation noted plantar surface with black necrotic tissue/eschar. Surrounding tissue is red. Periwound is mild erythematous with dry and scaly. He has been referred to the hospitalist service for further evaluation and management. 02/20/2025: He was evaluated at the bedside this morning. He is AAO x3 he complained of pain in his left foot which has slightly improved. The black necrotic eschar was noted on his left 5th toe. Remarkable lab is for ESR 38, CRP 16, procalcitonin 0.94, lactate 2.5, creatinine 1.3. potassium 3.7. Atrial ultrasound revealed 60-70% left mid superficial artery stenosis with no flow in right proximal superficial artery. Cardiology is consulted for the necessary intervention the peripheral artery disease leading to dry gangrene of left 5th toe. ID consulted for possible sepsis. Podiatry consulted for the gangrenous left foot. Rest of the plan as discussed below 02/21/2025: He was evaluated at the bedside this morning. No overnight event. He is AAO x3. He complains of mild left foot pain. He is hemodynamically stable and labs remarkable for CRP 98, creatinine 1.3, procalcitonin 0.94, hemoglobin 11.9. Cardiology want angiogram of the bilateral limb but patient denied the catheterization. We will defer the catheterization for now. He is continued on vancomycin, Zosyn and Solu-Medrol along with aspirin, Plavix and atorvastatin. ID is on board. Podiatry consulted for the gangrene of the left 5th toe. Rest of the plan as discussed below. 02/22/2025: He was evaluated at the bedside this morning. No Overnight event. Who is AAO x3. He complains of mild left foot pain. He is hemodynamically stable and labs remarkable for CRP 54, Cr 1.1, procalcitonin 0.94, Hb 11.6. Patient denies palpitation yesterday but he agreed for today. Cardiology going to scheduling for catheterization today. He is continued on vancomycin, Zosyn and Solu-Medrol along with aspirin, Plavix and atorvastatin. ID is on board. Podiatry consulted for the gangrene of the left 5th toe. Rest of the plan as discussed below. 02/23/2025: He was evaluated at the bedside this morning. No Overnight event. Who is AAO x3. He complains of mild left foot pain. Vital signs are in the normal range. Labs are normal except for Hb 11.5, BUN 26, glucose 122, ferritin 706, vitamin B12 1053. Blood culture showed no growth after 4 days. Today morning blood pressure is 151/91 and we started his home medication lisinopril. After the medication his blood pressure is in the normal range. Actually he is supposed to be scheduled for angiography and potential revascularization yesterday by Dr. 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 The doctor who is netsuite consultant will not perform the procedure. So they are planning to the procedure on Tuesday. After the procedure the Dr. Dean wanted to do amputation of left toe. 02/24/2025: He was evaluated at the bedside this morning. No overnight event. He is AAO x3. He was complaining of mild left lower limb pain more concentrated on 5th digit. The pain typically get worse when he put his leg on the bed and get better when he put it down hanging which seems like limb claudication. He is hemodynamically stable. Labs remarkable for creatinine 1.1 CRP 17. He is continued on vancomycin, Zosyn, aspirin, Plavix, clopidogrel and lisinopril daily. He is pending angiogram of bilateral lower limb tomorrow and possible intervention if required. Podiatry we will follow post catheterization with necessary intervention for left 5th toe gangrene. Podiatry, ID and Cardiology on the board. Rest of the plan as discussed below. REVIEW OF SYSTEMS CONSTITUTIONAL: Denies fevers, chills, or night sweats. No unintentional weight loss reported. NEUROLOGICAL: Denies headache, amaurosis fugax, motor weakness, sensory deficit, vertigo/spinning sensation, gait abnormalities, or tremors. ENT: No hearing loss, otalgia, otorrhea, rhinitis, rhinorrhea, hoarseness, or sore throat. CARDIOVASCULAR: Denies any exertional angina, dyspnea on exertion, orthopnea, paroxysmal nocturnal dyspnea, palpitations, life-threatening arrhythmias, claudication. PULMONARY: Denies any shortness of breath, cough, phlegm/sputum, hemoptysis, pleuritic chest pain. SLEEP: Denies morning headaches, daytime somnolence or napping. Denies difficulty falling asleep, staying asleep, waking from sleep. Denies knowledge of snoring. GASTROINTESTINAL: Denies any type of dysphagia to either liquids or solids. Denies nausea, vomiting, pyrosis, early satiety, abdominal pain, diarrhea, constipation, or changes in stool consistency or caliber. Denies coffee-ground emesis, hematemesis, hematochezia, or melanotic stools. GENITOURINARY: Denies frequency, urgency, nocturia, hematuria or incontinence (Storage/Irritative symptoms.) Low urinary stream, straining to void, urinary intermittency or hesitancy, splitting of the voiding stream, terminal dribbling. ENDOCRINOLOGIC: Denies polyuria, polydipsia, polyphagia or heat/cold intolerances. HEMATOLOGIC: Denies thrombophilia/previous clots, or coagulopathy/bleeding disorders. ONCOLOGIC: Denies personal history of malignancy. DERMATOLOGIC: Denies rashes or pruritus. PSYCHIATRIC: Denies any suicidal or homicidal ideation. Denies hallucinations. PHYSICAL EXAM GENERAL APPEARANCE: The patient is awake, alert, and oriented, in no acute cardiopulmonary distress. NEUROLOGICAL: Cranial nerves II-XII grossly intact. Motor is 5/5 in bilateral upper and lower extremities proximal to distal. No sensory deficits. HEENT: Face is symmetric. NECK: Supple. No JVD. No thyromegaly. CHEST: Normal chest expansion. No Telemetry. LUNGS: Absence of any rales, rhonchi or any wheezing. CARDIOVASCULAR: Regular. S1 and S2 normal. No appreciable rubs, murmurs or gallops. ABDOMEN: Soft, nontender, and nondistended. There is no rebound, voluntary guarding, or rigidity. : Deferred. No Swanson. EXTREMITIES: Necrotic gangrenous left 5th toe, SKIN: No skin breakdown. Vital Signs (last 8hr) Date Time Temp Pulse Resp B/P (MAP) Pulse Ox O2 Delivery O2 Flow Rate FiO2 02/24/25 11:22 97.7 58 18 151/75 94 02/24/25 08:00 97.3 58 18 159/77 97 Room Air LABS: Laboratory: Test 02/24/25 04:10 02/23/25 04:15 02/22/25 15:54 Range/Units White Blood Count 10.2 4.8-10.8 K/uL Red Blood Count 3.64 L 4.50-6.20 MIL/uL Hemoglobin 12.0 L 14.0-18.0 g/dL Hematocrit 36.7 L 42-54 % Mean Corpuscular Volume 100.8 H 79-99 fL Mean Corpuscular Hemoglobin 33.0 27.0-33.0 pg Mean Corpuscular Hemoglobin Concent 32.7 32.0-36.0 g/dL Red Cell Distribution Width 16.1 H 11.0-15.5 % Platelet Count 285 130-400 K/uL Mean Platelet Volume 11.4 H 7.5-10.5 fL Nucleated Red Blood Cells 0.0 0.0-0.19 % Sodium Level 141 136-145 mmol/L Potassium Level 4.2 3.5-5.1 mmol/L Chloride Level 104 101-111 mmol/L Carbon Dioxide Level 27 21-32 mmol/L Blood Urea Nitrogen 20 H 7-18 mg/dL Creatinine 1.1 0.5-1.3 mg/dL Glomerular Filtration Rate Calc 74 >90 mL/min Random Glucose 86 70-105 mg/dL Total Calcium 9.1 8.5-10.1 mg/dL C-Reactive Protein, Quantitative 17.60 H 0.5-3.0 mg/L Immature Granulocyte % (Auto) 3.5 H 0-1 % Neutrophils (%) (Auto) 67.0 40.0-77.0 % Lymphocytes (%) (Auto) 9.4 L 21.0-51.0 % Monocytes (%) (Auto) 19.7 H 3.0-13.0 % Eosinophils (%) (Auto) 0.2 0.0-8.0 % Basophils (%) (Auto) 0.2 0.0-5.0 % Neutrophils # (Auto) 5.6 1.8-7.7 K/uL Lymphocytes # (Auto) 0.8 L 1.0-4.8 K/uL Monocytes # (Auto) 1.6 H 0.1-1.0 K/uL Eosinophils # (Auto) 0.02 0.00-0.70 K/uL Basophils # (Auto) 0.02 0.00-0.20 K/uL Absolute Immature Granulocyte (auto 0.29 0-1 K/uL Reticulocyte Count (auto) 2.02124 0.42-2.23 % Immature Reticulocyte Fraction 8.80 H 0.18-0.48 % Magnesium Level 2.20 1.80-2.40 mg/dL Iron Level 125 65-175 mcg/dL Total Iron Binding Capacity 353 250-450 mcg/dL Percent Iron Saturation 35.4 30-44 % Ferritin 706 H 30-400 ng/mL Vitamin B12 Level 1053 H 193-986 pg/mL Vancomycin Level Trough 10.7 10.0-20.0 UG/ML Current Medications Medications (Trade) Dose Ordered Sig/Antonio Route PRN Reason Start Time Stop Time Status Last Admin Dose Admin Acetaminophen (TYLenol 325MG TAB) 650 mg Q4H PRN PO TEMPERATURE GREATER THAN 101.5 02/19/25 16:00 03/21/25 15:59 Acetaminophen (TYLenol 325MG TAB) 650 mg Q6H PRN PO MILD PAIN (1-3) 02/19/25 16:00 03/21/25 15:59 Acetaminophen/ Codeine Phosphate (TYLenol-coDEINE TAB) 2 tab Q4H PRN PO MODERATE PAIN (4-6) 02/20/25 11:30 03/22/25 11:29 02/24/25 13:06 2 TAB Allopurinol (ZYLOprim 300MG) 300 mg DAILY PO 02/22/25 09:00 03/24/25 08:59 02/24/25 08:38 300 MG Aspirin (Aspirin 81mg Chew Tab) 81 mg DAILY PO 02/21/25 09:00 03/23/25 08:59 02/24/25 08:39 81 MG Atorvastatin Calcium (LIPItor 40MG) 40 mg HS PO 02/20/25 21:00 03/22/25 20:59 02/23/25 21:31 40 MG Clopidogrel Bisulfate (plaVIX 75MG) 75 mg DAILY PO 02/21/25 09:00 03/23/25 08:59 02/24/25 08:39 75 MG Famotidine (Pepcid 20mg Tab) 20 mg BID PO 02/20/25 21:00 03/22/25 20:59 02/24/25 08:39 20 MG Heparin Sodium (Porcine) (HEParin 5,000 UNIT VIAL) 5,000 unit Q12H SQ 02/20/25 16:00 03/22/25 15:59 02/24/25 04:24 5,000 UNIT Lisinopril (Prinivil 10mg) 10 mg DAILY PO 02/24/25 09:00 02/24/25 08:51 DC 02/24/25 08:39 10 MG Lisinopril (Prinivil 20mg) 20 mg DAILY PO 02/24/25 09:00 03/26/25 08:59 02/24/25 13:07 20 MG Methylprednisolone Sodium Succinate (Solu-medROL 40MG) 40 mg DAILY IVP 02/20/25 15:00 03/22/25 14:59 02/24/25 08:39 40 MG Morphine Sulfate (morPHINE 4MG SYG) 2 mg Q4H PRN IVP SEVERE PAIN (7-10) 02/19/25 16:00 02/26/25 15:59 02/20/25 13:08 2 MG Ondansetron HCl (zoFRAN 4MG INJ) 4 mg Q6H PRN IVP NAUSEA/VOMITING 02/19/25 16:00 03/21/25 15:59 Piperacillin Sod/ Tazobactam Sod (Zosyn 3.375gm+NS 50ml) 3.375 gm Q8H IVPB 02/19/25 16:00 03/01/25 15:59 02/24/25 08:39 3.375 GM Sodium Chloride (NS 50ml) 50 ml AD IV 02/19/25 23:00 02/20/25 11:44 DC Vancomycin HCl 250 ml @ 125 mls/hr Q24H IV 02/20/25 17:00 03/02/25 16:59 02/23/25 16:37 125 MLS/HR Vancomycin HCl (Vancomycin Protocol) 1 each AD IV 02/19/25 16:00 03/05/25 15:59 DIAGNOSTICS / RADIOLOGY: [ ] ASSESSMENT: Gangrene of the left 5th toe due to possible vascular compromise, POA Sepsis due to possible secondary infection of the gangrene Myelodysplastic syndrome on chemotherapy (immunocompromised state), POA Acute gout flare (less likely given necrosis and trauma history), POA Acute kidney injury, POA Anemia, POA PLAN: Gangrene of the left 5th toe due to possible vascular compromise, POA * He had a severe pain 10 days back with purplish discoloration which progressed to a black eschar like lesion on the left 5th toe. Foot x-ray did not reveal any acute osseous injury. Arterial ultrasound revealed calcified 60-70% stenosis in left mid superficial artery with no flow in right proximal superficial artery. * Consulted cardiology. Patient is started on aspirin 81 mg, clopidogrel 75 mg and atorvastatin 40 mg daily. * Lower limb angiogram with possible intervention scheduled for tomorrow. Sepsis due to possible secondary infection of the gangrene, POA * Presented with pulse 132, temperature 100.8, CRP 16, procalcitonin 0.95, lactate 2.5, ESR 38. 24 hour blood culture negative * Started on empiric antibiotic vancomycin and Zosyn * Consulted ID for the further recommendations. Consulted Podiatry for necessary intervention * After the procedure the Dr. Dean wanted to do amputation of left toe. Myelodysplastic syndrome on chemotherapy (immunocompromised state), POA * Consulted Hematology and Oncology Acute gout flare (less likely given necrosis and trauma history), POA * Patient has a history of gout. Uric acid 5.4 * Continue Solu-Medrol * Continue allopurinol Acute kidney injury, POA * Creatinine 1.3>1.1>1.2>1.1 * We will avoid nephrotoxic drugs and monitor the renal function. * FENA 2.2 Anemia, POA * Hemoglobin 11.5, MCV is 104.8, RDW is 16.5 * We will get anemia panel. * Iron is 125, TIBC is 353, % sat is 35.4, ferritin is 706, vitamin B12 is 1053. DVT prophylaxis: Heparin 5000 units b.i.d. GI prophylaxis: Famotidine 20 mg b.i.d. ATTESTATION BY PHYSICIAN I have seen and examined the patient. I reviewed the documentation, medical decision making, and treatment plan as noted by the resident provider above. I agree with the findings and plan of care. Jasbir Valles IV, MD, SUNIL MD Feb 24, 2025 13:33
--- NOTE | 2025-02-24 16:41 | NUR ---
NOTIFIED PHARMACY SPOKE WITH [facility] ON VANCO TROUGH , 11.1 CONT WITH CURRENT REGIMEN
[2025-02-24 16:56] VITALS: BP 127/62; PULSE 58; RESP 18; TEMP 98.3
[2025-02-24 20:00] VITALS: BP 128/69; PULSE 64; RESP 20; TEMP 97.8
[2025-02-25] VITALS (15 sets, daily range): BP systolic 106–157; BP diastolic 46–93; PULSE 55–75; RESP 17–19; TEMP 97.5–98.3; O2SAT 97–99
[2025-02-25 04:21] LABS: IMMATURE GRANULOCYTE ABSOLUTE 0.70 K/uL (0-1); NUCLEATED RED BLOOD CELLS 0.0 % (0.0-0.19); PLATELET COUNT (AUTO) 269 K/uL (130-400); RED BLOOD CELL COUNT(AUTO) 3.73 MIL/uL (4.50-6.20); RED CELL DISTRIBUTION WIDTH 16.2 % (11.0-15.5); WHITE BLOOD COUNT (AUTO) 11.0 K/uL (4.8-10.8)
[2025-02-25 04:58] LABS: CREATININE 1.1 mg/dL (0.5-1.3); GLOMERULAR FILTR. RATE CALC 74.0 mL/min (>90); GLUCOSE,RANDOM 97.0 mg/dL (70-105); SODIUM SERUM 141.0 mmol/L (136-145); UREA NITROGEN, BLOOD 22.0 mg/dL (7-18)
[2025-02-25 07:24] LABS: INR 0.95 (0.85-1.15)
--- NOTE | 2025-02-25 08:38 | PN ---
INFECTIOUS DISEASE FOLLOWUP NOTE DATE OF SERVICE: 02/23/2025. SUBJECTIVE: The patient is seen and examined at bedside. The patient has no fever, no chills. No nausea or vomiting. No abdominal pain. No cough. No shortness of breath. No palpitations or orthopnea. Denies depression or suicidal ideations. Currently, the right foot is better. No bleeding tendency. PHYSICAL EXAMINATION: VITAL SIGNS: Temperature today 97.5. EYES: No icterus. Pupils are equal and reactive. HENT: No oral thrush seen. Moist oral mucosa. NECK: Supple. No JVD or thyromegaly. LUNGS: Good air entry. No rales. No rhonchi. CARDIOVASCULAR: S1 and S2, regular. No murmur heard. ABDOMEN: Obese, soft, nontender. Bowel sounds present. CENTRAL NERVOUS SYSTEM: Awake, alert, oriented x 3. No focal deficits. SKIN: No rashes. No itchiness. LYMPHATIC: No peripheral lymphadenopathy. BACK: No deformity, no pressure ulcer. EXTREMITIES: Gangrenous changes involving the left fifth toe. ASSESSMENT: The patient is a 69-year-old male with multiple medical problem, which include: * Left fifth toe gangrene. * Left foot toe cellulitis. * Obesity. * Gout. * Possible peripheral vascular disease. PLAN: * Continue antiplatelets. * Continue wound care. * Continue antibiotics. * Continue nutritional support. * Continue GI prophylaxis. * Monitor electrolytes. * The patient will be followed closely. TID: [id number] RECEIPT: [id number] [facility]
--- NOTE | 2025-02-25 12:20 | PN ---
INFECTIOUS DISEASE FOLLOWUP NOTE DATE OF SERVICE: 02/24/2025 SUBJECTIVE: The patient is seen and examined at bedside. No fever, no chills. No pain. No nausea or vomiting. No bleeding tendencies. No palpitation or orthopnea. No depression. No suicidal ideation. No diarrhea. No abdominal pain. PHYSICAL EXAMINATION: VITAL SIGNS: Temperature is 97.5. EYES: No icterus. Pupils are equal and reactive. HENT: No oral thrush seen. Moist oral mucosa. NECK: Supple. No JVD or thyromegaly .LUNGS: Good air entry. No rales. No rhonchi. CARDIOVASCULAR: S1 and S2 regular. No murmur heard. ABDOMEN: Soft and nontender. Bowel sounds are present. CENTRAL NERVOUS SYSTEM: The patient is awake, alert, oriented x 3. No focal deficits. SKIN: No rashes, no itchiness. LYMPHATIC: No peripheral lymphadenopathy. BACK: No deformity. No pressure ulcer. EXTREMITIES: Gangrenous changes involving the left fifth toe. HEMATOLOGIC: No bleeding or petechial lesions seen. MUSCULOSKELETAL: No joint swelling, erythema or tenderness. ASSESSMENT: A 69-year-old male with multiple problems which include. * Left fifth toe gangrene. * Left foot toe cellulitis. * Obesity. * Gout. * Possible peripheral vascular disease. PLAN: * Continue nutritional support. * Continue wound care. * Continue antiemetics. * Continue . * Continue GI prophylaxis. * Monitor electrolytes. * The patient will be followed closely. TID: [id number] RECEIPT: [id number]
[2025-02-25] MEDS ORDERED: HEParin-NS 1,000 UNIT/500 ML 1,000 ML IV ONE (13:39)
[2025-02-25] MEDS ORDERED: IODIXANOL 320 MG/ML 100 ML VIAL ONE (13:39)
[2025-02-25] MEDS ORDERED: LIDOCAINE HCL 400MG/20ML VIAL ONE (13:39)
[2025-02-25] MEDS ORDERED: NITROGLYCERIN 50MG VIAL ONE (13:40)
--- NOTE | 2025-02-25 13:56 | PN ---
[facility] PROGRESS NOTE Date of Service: Feb 25, 2025 Time of Service: 13:56 SUBJECTIVE: Mr. Murray Reina is a 69-year-old male who presents to the emergency department with complaints of severe pain and necrosis of the left fifth toe. The patient reports that the pain began approximately eight days ago, initially attributing it to a possible gout attack. Several days later, he stubbed his left pinky toe, after which he noticed progressive discoloration and necrosis of the toe, accompanied by worsening pain, which he rates as 30/10 in severity. He has a significant past medical history of myelodysplastic syndrome, diagnosed one year ago, and is currently under the care of Dr. Hubert Simms. He receives monthly chemotherapy but canceled his scheduled treatment today due to his current condition. The patient also reports that he has not refilled two of his regular medications after returning from a recent vacation. Over the past week, he has observed increasing swelling, redness, and inflammation of the left lower extremity. He denies current fever but endorses intermittent chills and subjective low-grade fevers over the past week. He denies any other complaints aside from the severe pain in the affected toe. In the emergency department, an X-ray of the left foot was performed, revealing soft tissue swelling, no acute osseous injury, mild degenerative changes of the first metatarsophalangeal joint, and dorsal tissue swelling. Evaluation noted plantar surface with black necrotic tissue/eschar. Surrounding tissue is red. Periwound is mild erythematous with dry and scaly. He has been referred to the hospitalist service for further evaluation and management. 02/20/2025: He was evaluated at the bedside this morning. He is AAO x3 he complained of pain in his left foot which has slightly improved. The black necrotic eschar was noted on his left 5th toe. Remarkable lab is for ESR 38, CRP 16, procalcitonin 0.94, lactate 2.5, creatinine 1.3. potassium 3.7. Atrial ultrasound revealed 60-70% left mid superficial artery stenosis with no flow in right proximal superficial artery. Cardiology is consulted for the necessary intervention the peripheral artery disease leading to dry gangrene of left 5th toe. ID consulted for possible sepsis. Podiatry consulted for the gangrenous left foot. Rest of the plan as discussed below 02/21/2025: He was evaluated at the bedside this morning. No overnight event. He is AAO x3. He complains of mild left foot pain. He is hemodynamically stable and labs remarkable for CRP 98, creatinine 1.3, procalcitonin 0.94, hemoglobin 11.9. Cardiology want angiogram of the bilateral limb but patient denied the catheterization. We will defer the catheterization for now. He is continued on vancomycin, Zosyn and Solu-Medrol along with aspirin, Plavix and atorvastatin. ID is on board. Podiatry consulted for the gangrene of the left 5th toe. Rest of the plan as discussed below. 02/22/2025: He was evaluated at the bedside this morning. No Overnight event. Who is AAO x3. He complains of mild left foot pain. He is hemodynamically stable and labs remarkable for CRP 54, Cr 1.1, procalcitonin 0.94, Hb 11.6. Patient denies palpitation yesterday but he agreed for today. Cardiology going to scheduling for catheterization today. He is continued on vancomycin, Zosyn and Solu-Medrol along with aspirin, Plavix and atorvastatin. ID is on board. Podiatry consulted for the gangrene of the left 5th toe. Rest of the plan as discussed below. 02/23/2025: He was evaluated at the bedside this morning. No Overnight event. Who is AAO x3. He complains of mild left foot pain. Vital signs are in the normal range. Labs are normal except for Hb 11.5, BUN 26, glucose 122, ferritin 706, vitamin B12 1053. Blood culture showed no growth after 4 days. Today morning blood pressure is 151/91 and we started his home medication lisinopril. After the medication his blood pressure is in the normal range. Actually he is supposed to be scheduled for angiography and potential revascularization yesterday by Dr. 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 The doctor who is monogram machine operator will not perform the procedure. So they are planning to the procedure on Tuesday. After the procedure the Dr. Dean wanted to do amputation of left toe. 02/24/2025: He was evaluated at the bedside this morning. No overnight event. He is AAO x3. He was complaining of mild left lower limb pain more concentrated on 5th digit. The pain typically get worse when he put his leg on the bed and get better when he put it down hanging which seems like limb claudication. He is hemodynamically stable. Labs remarkable for creatinine 1.1 CRP 17. He is continued on vancomycin, Zosyn, aspirin, Plavix, clopidogrel and lisinopril daily. He is pending angiogram of bilateral lower limb tomorrow and possible intervention if required. Podiatry we will follow post catheterization with necessary intervention for left 5th toe gangrene. Podiatry, ID and Cardiology on the board. Rest of the plan as discussed below. 02/25/2025: Patient seen and evaluated bedside in room 332. Discussed with RN, no acute overnight events. Patient is complaining of severe pain, was receiving only Tylenol as needed by mouth. Patient is on NPO, scheduled for peripheral angiogram this afternoon. Started Dilaudid 0.5 mg q.6 hourly p.r.n. for severe pain. Patient's vitals blood pressure 106/46, heart rate 60, respiratory rate 18, saturating 97% at room air. Blood culture shows no growth after5 days. Podiatry, ID and cardiology on board and we will follow up with their rashaun mmendation. REVIEW OF SYSTEMS CONSTITUTIONAL: Denies fevers, chills, or night sweats. No unintentional weight loss reported. NEUROLOGICAL: Denies headache, amaurosis fugax, motor weakness, sensory deficit, vertigo/spinning sensation, gait abnormalities, or tremors. ENT: No hearing loss, otalgia, otorrhea, rhinitis, rhinorrhea, hoarseness, or sore throat. CARDIOVASCULAR: Denies any exertional angina, dyspnea on exertion, orthopnea, paroxysmal nocturnal dyspnea, palpitations, life-threatening arrhythmias, claudication. PULMONARY: Denies any shortness of breath, cough, phlegm/sputum, hemoptysis, pleuritic chest pain. SLEEP: Denies morning headaches, daytime somnolence or napping. Denies difficulty falling asleep, staying asleep, waking from sleep. Denies knowledge of snoring. GASTROINTESTINAL: Denies any type of dysphagia to either liquids or solids. Denies nausea, vomiting, pyrosis, early satiety, abdominal pain, diarrhea, constipation, or changes in stool consistency or caliber. Denies coffee-ground emesis, hematemesis, hematochezia, or melanotic stools. GENITOURINARY: Denies frequency, urgency, nocturia, hematuria or incontinence (Storage/Irritative symptoms.) Low urinary stream, straining to void, urinary intermittency or hesitancy, splitting of the voiding stream, terminal dribbling. ENDOCRINOLOGIC: Denies polyuria, polydipsia, polyphagia or heat/cold intolerances. HEMATOLOGIC: Denies thrombophilia/previous clots, or coagulopathy/bleeding disorders. ONCOLOGIC: Denies personal history of malignancy. DERMATOLOGIC: Denies rashes or pruritus. PSYCHIATRIC: Denies any suicidal or homicidal ideation. Denies hallucinations. PHYSICAL EXAM GENERAL APPEARANCE: The patient is awake, alert, and oriented, in no acute cardiopulmonary distress. NEUROLOGICAL: Cranial nerves II-XII grossly intact. Motor is 5/5 in bilateral upper and lower extremities proximal to distal. No sensory deficits. HEENT: Face is symmetric. NECK: Supple. No JVD. No thyromegaly. CHEST: Normal chest expansion. No Telemetry. LUNGS: Absence of any rales, rhonchi or any wheezing. CARDIOVASCULAR: Regular. S1 and S2 normal. No appreciable rubs, murmurs or gallops. ABDOMEN: Soft, nontender, and nondistended. There is no rebound, voluntary guarding, or rigidity. : Deferred. No Swanson. EXTREMITIES: Necrotic gangrenous left 5th toe, SKIN: No skin breakdown. Vital Signs (last 8hr) Date Time Temp Pulse Resp B/P (MAP) Pulse Ox O2 Delivery O2 Flow Rate FiO2 02/25/25 08:00 97.9 55 18 133/63 99 Room Air LABS: Laboratory: Test 02/25/25 07:03 02/25/25 04:09 02/24/25 16:12 02/24/25 04:10 Range/Units Prothrombin Time 10.1 9.6-11.6 SEC Prothromb Time International Ratio 0.95 0.85-1.15 Activated Partial Thromboplast Time 24.2 L 26.3-35.5 SEC White Blood Count 11.0 H 4.8-10.8 K/uL Red Blood Count 3.73 L 4.50-6.20 MIL/uL Hemoglobin 12.4 L 14.0-18.0 g/dL Hematocrit 37.8 L 42-54 % Mean Corpuscular Volume 101.3 H 79-99 fL Mean Corpuscular Hemoglobin 33.2 H 27.0-33.0 pg Mean Corpuscular Hemoglobin Concent 32.8 32.0-36.0 g/dL Red Cell Distribution Width 16.2 H 11.0-15.5 % Platelet Count 269 130-400 K/uL Mean Platelet Volume 10.9 H 7.5-10.5 fL Immature Granulocyte % (Auto) 6.4 H 0-1 % Neutrophils (%) (Auto) 61.8 40.0-77.0 % Lymphocytes (%) (Auto) 13.0 L 21.0-51.0 % Monocytes (%) (Auto) 17.9 H 3.0-13.0 % Eosinophils (%) (Auto) 0.4 0.0-8.0 % Basophils (%) (Auto) 0.5 0.0-5.0 % Neutrophils # (Auto) 6.8 1.8-7.7 K/uL Lymphocytes # (Auto) 1.4 1.0-4.8 K/uL Monocytes # (Auto) 2.0 H 0.1-1.0 K/uL Eosinophils # (Auto) 0.04 0.00-0.70 K/uL Basophils # (Auto) 0.05 0.00-0.20 K/uL Absolute Immature Granulocyte (auto 0.70 0-1 K/uL Nucleated Red Blood Cells 0.0 0.0-0.19 % Sodium Level 141 136-145 mmol/L Potassium Level 3.8 3.5-5.1 mmol/L Chloride Level 104 101-111 mmol/L Carbon Dioxide Level 28 21-32 mmol/L Blood Urea Nitrogen 22 H 7-18 mg/dL Creatinine 1.1 0.5-1.3 mg/dL Glomerular Filtration Rate Calc 74 >90 mL/min Random Glucose 97 70-105 mg/dL Total Calcium 9.0 8.5-10.1 mg/dL Magnesium Level 2.20 1.80-2.40 mg/dL Vancomycin Level Trough 11.1 10.0-20.0 UG/ML C-Reactive Protein, Quantitative 17.60 H 0.5-3.0 mg/L Current Medications Medications (Trade) Dose Ordered Sig/Antonio Route PRN Reason Start Time Stop Time Status Last Admin Dose Admin Acetaminophen (TYLenol 325MG TAB) 650 mg Q4H PRN PO TEMPERATURE GREATER THAN 101.5 9/30/25 16:00 03/21/25 15:59 Acetaminophen (TYLenol 325MG TAB) 650 mg Q6H PRN PO MILD PAIN (1-3) 02/19/25 16:00 03/21/25 15:59 Acetaminophen/ Codeine Phosphate (TYLenol-coDEINE TAB) 2 tab Q4H PRN PO MODERATE PAIN (4-6) 02/20/25 11:30 03/22/25 11:29 02/24/25 20:53 2 TAB Allopurinol (ZYLOprim 300MG) 300 mg DAILY PO 02/22/25 09:00 03/24/25 08:59 02/24/25 08:38 300 MG Aspirin (Aspirin 81mg Chew Tab) 81 mg DAILY PO 02/21/25 09:00 03/23/25 08:59 02/24/25 08:39 81 MG Atorvastatin Calcium (LIPItor 40MG) 40 mg HS PO 02/20/25 21:00 03/22/25 20:59 02/24/25 20:04 40 MG Clopidogrel Bisulfate (plaVIX 75MG) 75 mg DAILY PO 02/21/25 09:00 03/23/25 08:59 02/24/25 08:39 75 MG Famotidine (Pepcid 20mg Tab) 20 mg BID PO 02/20/25 21:00 03/22/25 20:59 02/24/25 20:04 20 MG Heparin Sodium (Porcine) (HEParin 5,000 UNIT VIAL) 5,000 unit Q12H SQ 02/20/25 16:00 03/22/25 15:59 02/24/25 16:12 5,000 UNIT Hydromorphone HCl (DiLAUDid 0.5MG INJ) 0.5 mg Q6H PRN IVP SEVERE PAIN (7-10) 02/25/25 12:00 03/02/25 11:59 02/25/25 13:00 0.5 MG Lisinopril (Prinivil 10mg) 10 mg DAILY PO 02/24/25 09:00 02/24/25 08:51 DC 02/24/25 08:39 10 MG Lisinopril (Prinivil 20mg) 20 mg DAILY PO 02/24/25 09:00 03/26/25 08:59 02/24/25 13:07 20 MG Methylprednisolone Sodium Succinate (Solu-medROL 40MG) 40 mg DAILY IVP 02/20/25 15:00 03/22/25 14:59 02/24/25 08:39 40 MG Morphine Sulfate (morPHINE 4MG SYG) 2 mg Q4H PRN IVP SEVERE PAIN (7-10) 02/19/25 16:00 02/24/25 18:59 DC 02/20/25 13:08 2 MG Ondansetron HCl (zoFRAN 4MG INJ) 4 mg Q6H PRN IVP NAUSEA/VOMITING 02/19/25 16:00 03/21/25 15:59 Piperacillin Sod/ Tazobactam Sod (Zosyn 3.375gm+NS 50ml) 3.375 gm Q8H IVPB 02/19/25 16:00 03/01/25 15:59 02/25/25 08:38 3.375 GM Sodium Chloride (NS 50ml) 50 ml AD IV 02/19/25 23:00 02/20/25 11:44 DC Vancomycin HCl 250 ml @ 125 mls/hr Q24H IV 02/20/25 17:00 03/02/25 16:59 02/24/25 16:51 125 MLS/HR Vancomycin HCl (Vancomycin Protocol) 1 each AD IV 02/19/25 16:00 03/05/25 15:59 DIAGNOSTICS / RADIOLOGY: [ ] ASSESSMENT: Gangrene of the left 5th toe due to possible vascular compromise, POA Sepsis due to possible secondary infection of the gangrene Myelodysplastic syndrome on chemotherapy (immunocompromised state), POA Acute gout flare (less likely given necrosis and trauma history), POA Acute kidney injury, POA Anemia, POA PLAN: Gangrene of the left 5th toe due to possible vascular compromise, POA * He had a severe pain 10 days back with purplish discoloration which progressed to a black eschar like lesion on the left 5th toe. Foot x-ray did not reveal any acute osseous injury. Arterial ultrasound revealed calcified 60-70% stenosis in left mid superficial artery with no flow in right proximal superficial artery. * Consulted cardiology. Patient is started on aspirin 81 mg, clopidogrel 75 mg and atorvastatin 40 mg daily. * Lower limb angiogram with possible intervention scheduled this afternoon. Sepsis due to possible secondary infection of the gangrene, POA * Presented with pulse 132, temperature 100.8, CRP 16, procalcitonin 0.95, lactate 2.5, ESR 38. 24 hour blood culture negative * Started on empiric antibiotic vancomycin and Zosyn * Consulted ID for the further recommendations. Consulted Podiatry for necessary intervention * After the procedure the Dr. Dean wanted to do amputation of left toe. Myelodysplastic syndrome on chemotherapy (immunocompromised state), POA * Consulted Hematology and Oncology Acute gout flare (less likely given necrosis and trauma history), POA * Patient has a history of gout. Uric acid 5.4 * Continue Solu-Medrol * Continue allopurinol Acute kidney injury, POA * Creatinine 1.3>1.1>1.2>1.1 * We will avoid nephrotoxic drugs and monitor the renal function. * FENA 2.2 Anemia, POA * Hemoglobin 11.0, MCV is 101.3, RDW is 16.2 * Iron is 125, TIBC is 353, % sat is 35.4, ferritin is 706, vitamin B12 is 1053. * We will trend hemoglobin regularly DVT prophylaxis: Heparin 5000 units b.i.d. GI prophylaxis: Famotidine 20 mg b.i.d. ATTESTATION BY PHYSICIAN I have seen and examined the patient. I reviewed the documentation, medical decision making, and treatment plan as noted by the resident provider above. I agree with the findings and plan of care. MAGUI BREWER MD, ADIL SHAH QUADRI MD Feb 25, 2025 13:56
[2025-02-25] MEDS ORDERED: MIDAZOLAM HCL 1 MG/ML 2ML VIAL ONE ×2 (14:40→15:54)
--- NOTE | 2025-02-25 15:05 | PN ---
INFECTIOUS DISEASE PROGRESS NOTE Date of Service: Feb 25, 2025 SUBJECTIVE: This is a 69-year-old male patient admitted with pain and necrosis to the left 5th toe. Patient is scheduled for a peripheral angiogram for today. WBC is slightly elevated at 11.0 but no fever, temperature is 97.9. We will continue on vancomycin and Zosyn. PHYSICAL EXAM EYES: Anicteric. Pupils equal and reactive. HENT: No oral thrush seen, moist Oral mucosa NECK: Supple, no JVD or thyromegaly. LUNGS: Good air entry. No rales, no rhonchi. CARDIOVASCULAR: S1, S2 regular. No murmur heard. ABDOMEN: Soft, non tender, bowel sounds present, no organomegaly CENTRAL NERVOUS SYSTEM: Awake, alert, oriented x 3. No focal deficits. SKIN: No rashes, no swelling. Left 5th toe with gangrene. Left foot swelling and cellulitis. LYMPHATICS: No peripheral lymphadenopathy MUSCULOSKELETAL: No joint swelling, erythema or tenderness. EXTREMITIES: No cyanosis or clubbing. Left 5th toe gangrene. BACK: No deformity, no pressure ulcer. GENITOURINARY: No dysuria or hematuria. Vital Sign (Last 12 Hours) 02/25/25 02/25/25 02/25/25 04:10 08:00 12:00 Temp 97.5 97.9 98.2 Pulse 60 55 59 Resp 18 18 19 B/P (MAP) 106/46 133/63 151/75 Pulse Ox 97 99 97 O2 Delivery Room Air Room Air Room Air Intake & Output (last 24hrs) 02/24/25 02/24/25 02/25/25 15:00 23:00 07:00 Intake Total 240 ml 240 ml Balance 240 ml 240 ml LABS: Laboratory: Test 02/25/25 07:03 02/25/25 04:09 02/24/25 16:12 02/24/25 04:10 Range/Units Prothrombin Time 10.1 9.6-11.6 SEC Prothromb Time International Ratio 0.95 0.85-1.15 Activated Partial Thromboplast Time 24.2 L 26.3-35.5 SEC White Blood Count 11.0 H 4.8-10.8 K/uL Red Blood Count 3.73 L 4.50-6.20 MIL/uL Hemoglobin 12.4 L 14.0-18.0 g/dL Hematocrit 37.8 L 42-54 % Mean Corpuscular Volume 101.3 H 79-99 fL Mean Corpuscular Hemoglobin 33.2 H 27.0-33.0 pg Mean Corpuscular Hemoglobin Concent 32.8 32.0-36.0 g/dL Red Cell Distribution Width 16.2 H 11.0-15.5 % Platelet Count 269 130-400 K/uL Mean Platelet Volume 10.9 H 7.5-10.5 fL Immature Granulocyte % (Auto) 6.4 H 0-1 % Neutrophils (%) (Auto) 61.8 40.0-77.0 % Lymphocytes (%) (Auto) 13.0 L 21.0-51.0 % Monocytes (%) (Auto) 17.9 H 3.0-13.0 % Eosinophils (%) (Auto) 0.4 0.0-8.0 % Basophils (%) (Auto) 0.5 0.0-5.0 % Neutrophils # (Auto) 6.8 1.8-7.7 K/uL Lymphocytes # (Auto) 1.4 1.0-4.8 K/uL Monocytes # (Auto) 2.0 H 0.1-1.0 K/uL Eosinophils # (Auto) 0.04 0.00-0.70 K/uL Basophils # (Auto) 0.05 0.00-0.20 K/uL Absolute Immature Granulocyte (auto 0.70 0-1 K/uL Nucleated Red Blood Cells 0.0 0.0-0.19 % Sodium Level 141 136-145 mmol/L Potassium Level 3.8 3.5-5.1 mmol/L Chloride Level 104 101-111 mmol/L Carbon Dioxide Level 28 21-32 mmol/L Blood Urea Nitrogen 22 H 7-18 mg/dL Creatinine 1.1 0.5-1.3 mg/dL Glomerular Filtration Rate Calc 74 >90 mL/min Random Glucose 97 70-105 mg/dL Total Calcium 9.0 8.5-10.1 mg/dL Magnesium Level 2.20 1.80-2.40 mg/dL Vancomycin Level Trough 11.1 10.0-20.0 UG/ML C-Reactive Protein, Quantitative 17.60 H 0.5-3.0 mg/L ASSESSMENT: Left 5th toe gangrene. Left foot cellulitis. Leukocytosis. Myelodysplastic syndrome, on chemotherapy. Underlying myelosuppression. Gout with possible flare-up. PLAN: Continue vancomycin per pharmacy protocol. Continue Zosyn IV. Continue pain management. Continue wound care. Organ Installer following patient. Continue Solu-Medrol IV. Scheduled for a peripheral angiogram for today. This case was reviewed and discussed with my supervising physician Dr. Chapman and the above assessment and plan was formulated and agreed upon. ATTESTATION BY PHYSICIAN I have seen and examined the patient. I reviewed the documentation, medical decision making, and treatment plan as noted by the mid-level provider above. I agree with the findings and plan of care. RIC CHAPMAN MD, MIRTA L [facility] Feb 25, 2025 15:05
[2025-02-25] MEDS ORDERED: HEParin-NS 1,000 UNIT/500 ML 500 ML IV ONE (15:51)
[2025-02-25] MEDS ORDERED: ASPIRIN 81MG CHEW TAB ONE (17:31)
--- NOTE | 2025-02-25 18:14 | PRN ---
Procedure:Peripheral Angiogram Procedure Note Procedure Note: Peripheral Angiogram Date/Time of Service: 02/25/2025 Referring Physician: Dr. Coats Procedures Performed: Lower abdominal aortogram, peripheral angiogram with lower extremity arterial runoff, balloon lithotripsy and drug coated balloon angioplasty of the mid and distal left superficial femoral artery, balloon angioplasty, balloon lithotripsy, and drug coated balloon angioplasty of the distal left popliteal artery and left tibioperoneal artery, balloon angioplasty and balloon lithotripsy of the distal left peroneal artery and balloon lithotripsy of the proximal, mid, and distal left posterior tibial artery and AARON placement in the mid and distal left posterior tibial artery Indications for Procedure: PAD, Benzie category 5 symptoms (left lower extremity) Nonhealing ulcer in the 5th digit of the left foot Description of Procedure: [After informed consent was obtained the patient was prepped and draped in the usual sterile fashion a 6 [place] arterial sheath with a hemostatic valve was inserted into the right common femoral artery using a modified Salinger technique on the first past front wall puncture. A 5 [place] Omni Flush catheter was then advanced over a soft angled Glidewire into the abdominal aorta and a lower abdominal aortogram with runoff was obtained. The findings are listed belo w. The Omni flush catheter was then advanced to the left common femoral artery in the left lower extremity arteriogram was obtained. The findings are listed below.] Findings: Lower Abdominal aorta: patent Right common iliac artery: patent Right external iliac artery: patent Right internal iliac artery: patent Right common femoral artery: patent Right profunda artery: patent Left common iliac artery: patent Left external iliac artery: patent Left internal iliac artery: patent Left common femoral artery: patent Left profunda artery: patent Left superficial femoral artery: 80% stenosis in the mid segment of the artery, diffuse 80% stenosis in the distal segment of the artery Left popliteal artery: 90% stenosis in the distal segment of the artery Left anterior tibial artery: 100% stenosis ([employer] = 200 mm) in the proximal segment of the artery. The artery reconstitutes distally via collateral blood flow. Left tibioperoneal artery: 90% stenosis Left peroneal artery: 100% stenosis ([employer]IVE [employer]) in the distal segment of the artery. Left posterior tibial artery: 80% stenosis in the proximal segments of the artery. Diffuse 80% stenosis in the mid and distal segments of the artery. Left pedal arch: Incomplete, with slow single-vessel runoff supplying the posterior and anterior segment of the left pedal arch Intervention: After reviewing the above-mentioned findings the decision was made to intervene on the left superficial femoral artery, the left popliteal artery, the left tibioperoneal artery, the left peroneal artery, in the left posterior tibial artery. We subsequently advanced the soft angled Glidewire into the Omni flush catheter and advanced it to the left popliteal artery. We then removed the Omni flush catheter and exchanged the short six [place] arterial sheath for a 65 cm six [place] destination arterial sheath, which was then placed in the mid left superficial femoral artery. We then administered heparin 75 units/kg x1 dose, clopidogrel 300 mg x 1 dose, and aspirin 324 mg x 1 dose. We then advanced a 0.014 whisper guidewire and 0.014 quick cross catheter across the areas stenosis into the distal left peroneal artery. We then removed the quick cross catheter and performed balloon angioplasty (2.0 x 60 mm) and balloon lithotripsy (shockwave 3.0 x 80 mm) in the distal left peroneal artery. We then advanced a 0.014 command 18 guidewire across the areas stenosis and into the distal left posterior tibial artery. We then performed balloon angioplasty (3.0 x 20 mm) an d drug coated balloon angioplasty (Medtronic inpact 4.0 x 40 mm) in the left tibioperoneal artery and distal left popliteal artery. We then performed balloon lithotripsy (shockwave 3.0 x 80 mm) in the proximal, mid, and distal left posterior tibial artery. We then performed successful AARON placement (Esprit 3.75 x 38 mm) in the mid left posterior tibial artery and (Esprit 3.5 x 38 mm, 3.0 x 28 mm and 3.0 x 38 mm) in the distal left posterior tibial artery. We then performed successful balloon lithotripsy (shockwave 6.0 x 80 mm) and drug coated balloon angioplasty (Medtronic inpact 6.0 x 150 mm) in the mid and distal left superficial femoral artery. Repeat angiography then revealed widely patent arteries without significant dissection or perforation, and brisk two- vessel runoff supplying the left foot/pedal arch. The guidewires and six [place] 65 cm destination arterial sheath were then removed and the arteriotomy site in the right common femoral artery was successfully closed using a six [place] Angio-Seal device. The patient tolerated the procedure well and without issue. Estimated Blood Loss: [80]mL Complications: [ None] Conclusion: 1. PAD, Travis category five symptoms (left lower extremity), 80% stenosis in the mid and distal left superficial femoral artery status post successful treatment with balloon lithotripsy and drug coated balloon angioplasty, 90% stenosis in the distal left popliteal artery and left tibioperoneal artery s tatus post successful treatment with balloon angioplasty and drug coated balloon angioplasty, 100% stenosis in the distal left peroneal artery status post successful treatment with balloon angioplasty and balloon lithotripsy, and 80% stenosis in the proximal left posterior tibial artery status post successful treatment with balloon lithotripsy, 80% stenosis in the mid and distal left posterior tibial artery status post successful treatment with balloon lithotripsy and AARON placement (Esprit 3.75 x 38 mm, 3.5 x 38 mm, 3.0 x 28 mm, 3.0 x 38 mm), resulting in patent arteries, without dissection, or perforation, and brisk two-vessel runoff supplying the left foot/pedal arch. 2. Residual PAD, 100% stenosis in the proximal left anterior tibial artery 3. Nonhealing ulcer in the 5th digit of the left foot Recommendations/Instructions: 1. Goal-directed medical therapy. 2. Continue aspirin 81 mg daily and clopidogrel 75 mg daily. 3. Groin precautions 4. 4 hours of bedrest 5. Start NS at 100 mL/hour x 3 hours 6. We will order TCOMs of the left foot to assess wound healing potential after undergoing the above-mentioned procedure. 7. Continue aggressive IV antibiotics and wound care KYUNG BERNABE MD Feb 25, 2025 18:14
[2025-02-25] MEDS: 0.9%NACL 1000ML 1,000 ML IV SCH (18:44)
[2025-02-26] VITALS (8 sets, daily range): BP systolic 117–161; BP diastolic 61–76; PULSE 61–91; RESP 18–20; TEMP 97.4–98.4; O2SAT 98
[2025-02-26 04:36] LABS: NUCLEATED RED BLOOD CELLS 0.0 % (0.0-0.19); PLATELET COUNT (AUTO) 248.0 K/uL (130-400); RED BLOOD CELL COUNT(AUTO) 3.7 MIL/uL (4.50-6.20); RED CELL DISTRIBUTION WIDTH 16.1 % (11.0-15.5); WHITE BLOOD COUNT (AUTO) 9.1 K/uL (4.8-10.8)
[2025-02-26 04:57] LABS: CREATININE 1.2 mg/dL (0.5-1.3); GLOMERULAR FILTR. RATE CALC 66.0 mL/min (>90); GLUCOSE,RANDOM 184.0 mg/dL (70-105); SODIUM SERUM 141.0 mmol/L (136-145); UREA NITROGEN, BLOOD 30.0 mg/dL (7-18)
[2025-02-26 05:03] LABS: ERYTHROCYTE SEDIMENTATION RATE 18.0 MM/HR (0-20)
--- NOTE | 2025-02-26 09:01 | PN ---
Patient notes no difference in sensation in his foot. There is no complication from catheterization and extensive revascularization was accomplished in the SFA/tibioperoneal/posterior tibial/peroneal vessels. I discussed use of dual antiplatelet therapy with the patient and we will plan to follow up with him in the office in about two weeks. From our perspective the patient can be discharged; we will sign off, but we defer to others who may be rendering additional care that may require continued hospitalization. Vitals/Labs Vital Signs Date Time Temp Pulse Resp B/P (MAP) Pulse Ox O2 Delivery O2 Flow Rate FiO2 02/26/25 08:00 98.1 72 19 141/68 98 Room Air 02/26/25 04:00 0.0 02/25/25 20:00 21 Laboratory Tests 02/26/25 04:30 Medications Current Medications Piperacillin Sod/ Tazobactam Sod 3.375 gm ONCE ONCE IV; Start 02/19/25 at 14:00; Stop 02/19/25 at 14:01; Status DC Vancomycin HCl 1 gm ONCE ONCE IV; Start 02/19/25 at 14:00; Stop 02/19/25 at 14:01; Status Cancel Vancomycin HCl 1 each AD IV; Start 02/19/25 at 16:00; Stop 03/05/25 at 15:59 Piperacillin Sod/ Tazobactam Sod 3.375 gm Q8H IVPB Last administered on 02/25/25at 23:36; Start 02/19/25 at 16:00; Stop 03/01/25 at 15:59 Sodium Chloride 50 ml AD IV; Start 02/19/25 at 23:00; Stop 02/20/25 at 11:44; Status DC Acetaminophen 650 mg Q4H PRN PO; Start 02/19/25 at 16:00; Stop 03/21/25 at 15:59 Acetaminophen 650 mg Q6H PRN PO; Start 02/19/25 at 16:00; Stop 03/21/25 at 15:59 Ondansetron HCl 4 mg Q6H PRN IVP; Start 02/19/25 at 16:00; Stop 03/21/25 at 15:59 Morphine Sulfate 2 mg Q4H PRN IVP Last administered on 02/20/25at 13:08; Start 02/19/25 at 16:00; Stop 02/24/25 at 18:59; Status DC Vancomycin HCl 500 ml @ 250 mls/hr ONCE ONCE IV Last administered on 02/19/25at 18:56; Start 02/19/25 at 17:00; Stop 02/19/25 at 18:59; Status DC Vancomycin HCl 250 ml @ 125 mls/hr Q24H IV Last administered on 02/25/25at 18:44; Start 02/20/25 at 17:00; Stop 03/02/25 at 16:59 Acetaminophen/ Codeine Phosphate 2 tab Q4H PRN PO Last administered on 02/25/25 23:38; Start 02/20/25 at 11:30; Stop 03/22/25 at 11:29 Aspirin 81 mg DAILY PO Last administered on 02/24/25 08:39; Start 02/21/25 at 09:00; Stop 03/23/25 at 08:59 Atorvastatin Calcium 40 mg HS PO Last administered on 02/25/25 20:07; Start 02/20/25 at 21:00; Stop 03/22/25 at 20:59 Clopidogrel Bisulfate 75 mg DAILY PO Last administered on 02/24/25 08:39; Start 02/21/25 at 09:00; Stop 03/23/25 at 08:59 Methylprednisolone Sodium Succinate 40 mg DAILY IVP Last administered on 02/24/25 08:39; Start 02/20/25 at 15:00; Stop 03/22/25 at 14:59 Diphenhydramine HCl 25 mg ONCE ONCE IV; Start 02/20/25 at 15:00; Stop 02/20/25 at 15:31; Status DC Heparin Sodium (Porcine) 5,000 unit Q12H SQ Last administered on 02/26/25at 03:20; Start 02/20/25 at 16:00; Stop 03/22/25 at 15:59 Famotidine 20 mg BID PO Last administered on 02/25/25 20:07; Start 02/20/25 at 21:00; Stop 03/22/25 at 20:59 Allopurinol 300 mg DAILY PO Last administered on 02/24/25 08:38; Start 02/22/25 at 09:00; Stop 03/24/25 at 08:59 Lisinopril 10 mg DAILY PO Last administered on 02/24/25at 08:39; Start 02/24/25 at 09:00; Stop 02/24/25 at 08:51; Status DC Lisinopril 20 mg DAILY PO Last administered on 02/24/25at 13:07; Start 02/24/25 at 09:00; Stop 03/26/25 at 08:59 Diphenhydramine HCl 50 mg NOW ONCE IV Last administered on 02/25/25at 08:36; Start 02/25/25 at 08:00; Stop 02/25/25 at 08:01; Status DC Methylprednisolone Sodium Succinate 125 mg NOW ONCE IVP Last administered on 02/25/25at 08:38; Start 02/25/25 at 08:00; Stop 02/25/25 at 08:01; Status DC Diphenhydramine HCl 50 mg ONCALL ONCE IV; Start 02/25/25 at 08:00; Stop 02/25/25 at 08:01; Status DC Methylprednisolone Sodium Succinate 125 mg ONCALL ONCE IVP; Start 02/25/25 at 08:00; Stop 02/25/25 at 08:01; Status DC Hydromorphone HCl 0.5 mg Q6H PRN IVP Last administered on 02/25/25at 13:00; Start 02/25/25 at 12:00; Stop 03/02/25 at 11:59 Lidocaine HCl 20 ml STK-MED ONCE .ROUTE; Start 02/25/25 at 13:39; Stop 02/25/25 at 13:39; Status DC Iodixanol 100 ml STK-MED ONCE .ROUTE; Start 02/25/25 at 13:39; Stop 02/25/25 at 13:39; Status DC Nicardipine HCl 25 mg STK-MED ONCE IV; Start 02/25/25 at 13:39; Stop 02/25/25 at 13:39; Status DC Heparin Sodium (Porcine) 10,000 unit STK-MED ONCE .ROUTE; Start 02/25/25 at 13:39; Stop 02/25/25 at 13:39; Status DC Heparin Sodium/ Sodium Chloride 1,000 ml @ As Directed STK-MED ONCE IV; Start 02/25/25 at 13:39; Stop 02/25/25 at 13:40; Status DC Nitroglycerin 50 mg STK-MED ONCE .ROUTE; Start 02/25/25 at 13:40; Stop 02/25/25 at 13:40; Status DC Diphenhydramine HCl 50 mg STK-MED ONCE .ROUTE; Start 02/25/25 at 14:12; Stop 02/25/25 at 14:12; Status DC Methylprednisolone Sodium Succinate 125 mg STK-MED ONCE .ROUTE; Start 02/25/25 at 14:12; Stop 02/25/25 at 14:12; Status DC Fentanyl Citrate 100 mcg STK-MED ONCE .ROUTE; Start 02/25/25 at 14:40; Stop 02/25/25 at 14:40; Status DC Midazolam HCl 2 mg STK-MED ONCE .ROUTE; Start 02/25/25 at 14:40; Stop 02/25/25 at 14:40; Status DC Methylprednisolone Sodium Succinate 125 mg STK-MED ONCE .ROUTE; Start 02/25/25 at 14:48; Stop 02/25/25 at 14:48; Status DC Diphenhydramine HCl 50 mg STK-MED ONCE .ROUTE; Start 02/25/25 at 14:48; Stop 02/25/25 at 14:48; Status DC Heparin Sodium (Porcine) 10,000 unit STK-MED ONCE .ROUTE; Start 02/25/25 at 15:51; Stop 02/25/25 at 15:51; Status DC Heparin Sodium/ Sodium Chloride 500 ml @ As Directed STK-MED ONCE IV; Start 02/25/25 at 15:51; Stop 02/25/25 at 15:51; Status DC Midazolam HCl 2 mg STK-MED ONCE .ROUTE; Start 02/25/25 at 15:54; Stop 02/25/25 at 15:54; Status DC Hydralazine HCl 20 mg STK-MED ONCE .ROUTE; Start 02/25/25 at 17:04; Stop 02/25/25 at 17:04; Status DC Aspirin 81 mg STK-MED ONCE .ROUTE; Start 02/25/25 at 17:31; Stop 02/25/25 at 17:31; Status DC Clopidogrel Bisulfate 300 mg STK-MED ONCE .ROUTE; Start 02/25/25 at 17:31; Stop 02/25/25 at 17:31; Status DC Sodium Chloride 1,000 ml @ 100 mls/hr Q10H IV Last administered on 02/25/25at 18:44; Start 02/25/25 at 18:00; Stop 02/25/25 at 20:59; Status DC FIDE ADHIKARI MD Feb 26, 2025 09:00
[2025-02-26] MEDS ORDERED: CLOP-31 PO (09:04)
[2025-02-26] MEDS ORDERED: ATOR40TA69 PO (09:04)
[2025-02-26] MEDS ORDERED: ASPI-1005 PO (09:04)
[2025-02-26] MEDS ORDERED: GADOTERATE MEGLUMINE 10 MMOL/20 ML VIAL IV ONE (10:54)
--- NOTE | 2025-02-26 11:40 | NUR ---
[facility] Follow-up: Patient re-assessed by wound healing team. See wound assessment. Assessment and recommendations provided to primary nurse. Education provided. Wound care done. Addendum: 02/27/25 at 1440 by GHISLAINE CHOUDHARY RN RN/ Amended: Links added.
--- NOTE | 2025-02-26 16:17 | PN ---
[facility] PROGRESS NOTE Date of Service: Feb 26, 2025 Time of Service: 16:17 SUBJECTIVE: Mr. Murray Reina is a 69-year-old male who presents to the emergency department with complaints of severe pain and necrosis of the left fifth toe. The patient reports that the pain began approximately eight days ago, initially attributing it to a possible gout attack. Several days later, he stubbed his left pinky toe, after which he noticed progressive discoloration and necrosis of the toe, accompanied by worsening pain, which he rates as 30/10 in severity. He has a significant past medical history of myelodysplastic syndrome, diagnosed one year ago, and is currently under the care of Dr. Hubert Simms. He receives monthly chemotherapy but canceled his scheduled treatment today due to his current condition. The patient also reports that he has not refilled two of his regular medications after returning from a recent vacation. Over the past week, he has observed increasing swelling, redness, and inflammation of the left lower extremity. He denies current fever but endorses intermittent chills and subjective low-grade fevers over the past week. He denies any other complaints aside from the severe pain in the affected toe. In the emergency department, an X-ray of the left foot was performed, revealing soft tissue swelling, no acute osseous injury, mild degenerative changes of the first metatarsophalangeal joint, and dorsal tissue swelling. Evaluation noted plantar surface with black necrotic tissue/eschar. Surrounding tissue is red. Periwound is mild erythematous with dry and scaly. He has been referred to the hospitalist service for further evaluation and management. 02/20/2025: He was evaluated at the bedside this morning. He is AAO x3 he complained of pain in his left foot which has slightly improved. The black necrotic eschar was noted on his left 5th toe. Remarkable lab is for ESR 38, CRP 16, procalcitonin 0.94, lactate 2.5, creatinine 1.3. potassium 3.7. Atrial ultrasound revealed 60-70% left mid superficial artery stenosis with no flow in right proximal superficial artery. Cardiology is consulted for the necessary intervention the peripheral artery disease leading to dry gangrene of left 5th toe. ID consulted for possible sepsis. Podiatry consulted for the gangrenous left foot. Rest of the plan as discussed below 02/21/2025: He was evaluated at the bedside this morning. No overnight event. He is AAO x3. He complains of mild left foot pain. He is hemodynamically stable and labs remarkable for CRP 98, creatinine 1.3, procalcitonin 0.94, hemoglobin 11.9. Cardiology want angiogram of the bilateral limb but patient denied the catheterization. We will defer the catheterization for now. He is continued on vancomycin, Zosyn and Solu-Medrol along with aspirin, Plavix and atorvastatin. ID is on board. Podiatry consulted for the gangrene of the left 5th toe. Rest of the plan as discussed below. 02/22/2025: He was evaluated at the bedside this morning. No Overnight event. Who is AAO x3. He complains of mild left foot pain. He is hemodynamically stable and labs remarkable for CRP 54, Cr 1.1, procalcitonin 0.94, Hb 11.6. Patient denies palpitation yesterday but he agreed for today. Cardiology going to scheduling for catheterization today. He is continued on vancomycin, Zosyn and Solu-Medrol along with aspirin, Plavix and atorvastatin. ID is on board. Podiatry consulted for the gangrene of the left 5th toe. Rest of the plan as discussed below. 02/23/2025: He was evaluated at the bedside this morning. No Overnight event. Who is AAO x3. He complains of mild left foot pain. Vital signs are in the normal range. Labs are normal except for Hb 11.5, BUN 26, glucose 122, ferritin 706, vitamin B12 1053. Blood culture showed no growth after 4 days. Today morning blood pressure is 151/91 and we started his home medication lisinopril. After the medication his blood pressure is in the normal range. Actually he is supposed to be scheduled for angiography and potential revascularization yesterday by Dr. 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 The doctor who is financial services consultant will not perform the procedure. So they are planning to the procedure on Tuesday. After the procedure the Dr. Dean wanted to do amputation of left toe. 02/24/2025: He was evaluated at the bedside this morning. No overnight event. He is AAO x3. He was complaining of mild left lower limb pain more concentrated on 5th digit. The pain typically get worse when he put his leg on the bed and get better when he put it down hanging which seems like limb claudication. He is hemodynamically stable. Labs remarkable for creatinine 1.1 CRP 17. He is continued on vancomycin, Zosyn, aspirin, Plavix, clopidogrel and lisinopril daily. He is pending angiogram of bilateral lower limb tomorrow and possible intervention if required. Podiatry we will follow post catheterization with necessary intervention for left 5th toe gangrene. Podiatry, ID and Cardiology on the board. Rest of the plan as discussed below. 02/25/2025: Patient seen and evaluated bedside in room 332. Discussed with RN, no acute overnight events. Patient is complaining of severe pain, was receiving only Tylenol as needed by mouth. Patient is on NPO, scheduled for peripheral angiogram this afternoon. Started Dilaudid 0.5 mg q.6 hourly p.r.n. for severe pain. Patient's vitals blood pressure 106/46, heart rate 60, respiratory rate 18, saturating 97% at room air. Blood culture shows no growth after5 days. Podiatry, ID and cardiology on board and we will follow up with their rashaun mmendation. 02/26/2025: Patient seen and evaluated bedside in room 332. Case discussed with RN, no ac [place] overnight events. Patient underwent peripheral angiogram and found to have multiple blockages in multiple arteries in left lower limb and treatment with balloon angioplasty was performed. Nonhealing ulceration 5th digit of left foot, Podiatry was consulted and we will follow up with the recommendations. REVIEW OF SYSTEMS CONSTITUTIONAL: Denies fevers, chills, or night sweats. No unintentional weight loss reported. NEUROLOGICAL: Denies headache, amaurosis fugax, motor weakness, sensory deficit, vertigo/spinning sensation, gait abnormalities, or tremors. ENT: No hearing loss, otalgia, otorrhea, rhinitis, rhinorrhea, hoarseness, or sore throat. CARDIOVASCULAR: Denies any exertional angina, dyspnea on exertion, orthopnea, paroxysmal nocturnal dyspnea, palpitations, life-threatening arrhythmias, claudication. PULMONARY: Denies any shortness of breath, cough, phlegm/sputum, hemoptysis, pleuritic chest pain. SLEEP: Denies morning headaches, daytime somnolence or napping. Denies difficulty falling asleep, staying asleep, waking from sleep. Denies knowledge of snoring. GASTROINTESTINAL: Denies any type of dysphagia to either liquids or solids. Denies nausea, vomiting, pyrosis, early satiety, abdominal pain, diarrhea, constipation, or changes in stool consistency or caliber. Denies coffee-ground emesis, hematemesis, hematochezia, or melanotic stools. GENITOURINARY: Denies frequency, urgency, nocturia, hematuria or incontinence (Storage/Irritative symptoms.) Low urinary stream, straining to void, urinary intermittency or hesitancy, splitting of the voiding stream, terminal dribbling. ENDOCRINOLOGIC: Denies polyuria, polydipsia, polyphagia or heat/cold intolerances. HEMATOLOGIC: Denies thrombophilia/previous clots, or coagulopathy/bleeding disorders. ONCOLOGIC: Denies personal history of malignancy. DERMATOLOGIC: Denies rashes or pruritus. PSYCHIATRIC: Denies any suicidal or homicidal ideation. Denies hallucinations. PHYSICAL EXAM GENERAL APPEARANCE: The patient is awake, alert, and oriented, in no acute cardiopulmonary distress. NEUROLOGICAL: Cranial nerves II-XII grossly intact. Motor is 5/5 in bilateral upper and lower extremities proximal to distal. No sensory deficits. HEENT: Face is symmetric. NECK: Supple. No JVD. No thyromegaly. CHEST: Normal chest expansion. No Telemetry. LUNGS: Absence of any rales, rhonchi or any wheezing. CARDIOVASCULAR: Regular. S1 and S2 normal. No appreciable rubs, murmurs or gallops. ABDOMEN: Soft, nontender, and nondistended. There is no rebound, voluntary guarding, or rigidity. : Deferred. No [place]. EXTREMITIES: Necrotic gangrenous left 5th toe, SKIN: No skin breakdown. Vital Signs (last 8hr) Date Time Temp Pulse Resp B/P (MAP) Pulse Ox O2 Delivery O2 Flow Rate FiO2 02/26/25 12:00 98.4 82 20 161/74 97 Room Air 02/26/25 08:30 98 Room Air* 0 21 LABS: Laboratory: Test 02/26/25 04:30 02/25/25 07:03 02/25/25 04:09 Range/Units White Blood Count 9.1 4.8-10.8 K/uL Red Blood Count 3.70 L 4.50-6.20 MIL/uL Hemoglobin 12.1 L 14.0-18.0 g/dL Hematocrit 37.3 L 42-54 % Mean Corpuscular Volume 100.8 H 79-99 fL Mean Corpuscular Hemoglobin 32.7 27.0-33.0 pg Mean Corpuscular Hemoglobin Concent 32.4 32.0-36.0 g/dL Red Cell Distribution Width 16.1 H 11.0-15.5 % Platelet Count 248 130-400 K/uL Mean Platelet Volume 10.7 H 7.5-10.5 fL Nucleated Red Blood Cells 0.0 0.0-0.19 % Erythrocyte Sedimentation Rate 18 0-20 MM/HR Sodium Level 141 136-145 mmol/L Potassium Level 4.0 3.5-5.1 mmol/L Chloride Level 106 101-111 mmol/L Carbon Dioxide Level 22 21-32 mmol/L Blood Urea Nitrogen 30 H 7-18 mg/dL Creatinine 1.2 0.5-1.3 mg/dL Glomerular Filtration Rate Calc 66 >90 mL/min Random Glucose 184 H 70-105 mg/dL Total Calcium 8.8 8.5-10.1 mg/dL C-Reactive Protein, Quantitative 9.00 H 0.5-3.0 mg/L Prothrombin Time 10.1 9.6-11.6 SEC Prothromb Time International Ratio 0.95 0.85-1.15 Activated Partial Thromboplast Time 24.2 L 26.3-35.5 SEC Immature Granulocyte % (Auto) 6.4 H 0-1 % Neutrophils (%) (Auto) 61.8 40.0-77.0 % Lymphocytes (%) (Auto) 13.0 L 21.0-51.0 % Monocytes (%) (Auto) 17.9 H 3.0-13.0 % Eosinophils (%) (Auto) 0.4 0.0-8.0 % Basophils (%) (Auto) 0.5 0.0-5.0 % Neutrophils # (Auto) 6.8 1.8-7.7 K/uL Lymphocytes # (Auto) 1.4 1.0-4.8 K/uL Monocytes # (Auto) 2.0 H 0.1-1.0 K/uL Eosinophils # (Auto) 0.04 0.00-0.70 K/uL Basophils # (Auto) 0.05 0.00-0.20 K/uL Absolute Immature Granulocyte (auto 0.70 0-1 K/uL Magnesium Level 2.20 1.80-2.40 mg/dL Current Medications Medications (Trade) Dose Ordered Sig/Antonio Route PRN Reason Start Time Stop Time Status Last Admin Dose Admin Acetaminophen (TYLenol 325MG TAB) 650 mg Q4H PRN PO TEMPERATURE GREATER THAN 101.5 02/19/25 16:00 03/21/25 15:59 Acetaminophen (TYLenol 325MG TAB) 650 mg Q6H PRN PO MILD PAIN (1-3) 02/19/25 16:00 03/21/25 15:59 Acetaminophen/ Codeine Phosphate (TYLenol-coDEINE TAB) 2 tab Q4H PRN PO MODERATE PAIN (4-6) 02/20/25 11:30 03/22/25 11:29 02/26/25 14:26 2 TAB Allopurinol (ZYLOprim 300MG) 300 mg DAILY PO 02/22/25 09:00 03/24/25 08:59 02/26/25 09:37 300 MG Aspirin (Aspirin 81mg Chew Tab) 81 mg DAILY PO 02/21/25 09:00 03/23/25 08:59 02/26/25 09:37 81 MG Atorvastatin Calcium (LIPItor 40MG) 40 mg HS PO 02/20/25 21:00 03/22/25 20:59 02/25/25 20:07 40 MG Clopidogrel Bisulfate (plaVIX 75MG) 75 mg DAILY PO 02/21/25 09:00 03/23/25 08:59 02/26/25 09:37 75 MG Famotidine (Pepcid 20mg Tab) 20 mg BID PO 02/20/25 21:00 03/22/25 20:59 02/26/25 09:39 20 MG Gabapentin (NEURontin 300 MG CAP) 300 mg BID PO 02/26/25 21:00 03/28/25 20:59 Heparin Sodium (Porcine) (HEParin 5,000 UNIT VIAL) 5,000 unit Q12H SQ 02/20/25 16:00 03/22/25 15:59 02/26/25 03:20 5,000 UNIT Hydromorphone HCl (DiLAUDid 0.5MG INJ) 0.5 mg Q6H PRN IVP SEVERE PAIN (7-10) 02/25/25 12:00 03/02/25 11:59 02/25/25 13:00 0.5 MG Lisinopril (Prinivil 10mg) 10 mg DAILY PO 02/24/25 09:00 02/24/25 08:51 DC 02/24/25 08:39 10 MG Lisinopril (Prinivil 20mg) 20 mg DAILY PO 02/24/25 09:00 03/26/25 08:59 02/26/25 09:36 20 MG Methylprednisolone Sodium Succinate (Solu-medROL 40MG) 30 mg DAILY IVP 02/27/25 09:00 03/29/25 08:59 Methylprednisolone Sodium Succinate (Solu-medROL 40MG) 40 mg DAILY IVP 02/20/25 15:00 02/26/25 11:21 DC 02/26/25 09:30 40 MG Morphine Sulfate (morPHINE 4MG SYG) 2 mg Q4H PRN IVP SEVERE PAIN (7-10) 02/19/25 16:00 02/24/25 18:59 DC 02/20/25 13:08 2 MG Ondansetron HCl (zoFRAN 4MG INJ) 4 mg Q6H PRN IVP NAUSEA/VOMITING 02/19/25 16:00 03/21/25 15:59 Piperacillin Sod/ Tazobactam Sod (Zosyn 3.375gm+NS 50ml) 3.375 gm Q8H IVPB 02/19/25 16:00 03/01/25 15:59 02/26/25 09:29 3.375 GM Sodium Chloride 1,000 ml @ 100 mls/hr Q10H IV 02/25/25 18:00 02/25/25 20:59 DC 02/25/25 18:44 100 MLS/HR Sodium Chloride (NS 50ml) 50 ml AD IV 02/19/25 23:00 02/20/25 11:44 DC Vancomycin HCl 250 ml @ 125 mls/hr Q24H IV 02/20/25 17:00 03/02/25 16:59 02/25/25 18:44 125 MLS/HR Vancomycin HCl (Vancomycin Protocol) 1 each AD IV 02/19/25 16:00 03/05/25 15:59 DIAGNOSTICS / RADIOLOGY: [ ] ASSESSMENT: Gangrene of the left 5th toe due to possible vascular compromise, POA Sepsis due to possible secondary infection of the gangrene Myelodysplastic syndrome on chemotherapy (immunocompromised state), POA Acute gout flare (less likely given necrosis and trauma history), POA Acute kidney injury, POA Anemia, POA PLAN: Gangrene of the left 5th toe due to possible vascular compromise, POA * He had a severe pain 10 days back with purplish discoloration which progressed to a black eschar like lesion on the left 5th toe. Foot x-ray did not reveal any acute osseous injury. Arterial ultrasound revealed calcified 60-70% stenosis in left mid superficial artery with no flow in right proximal superficial artery. * Consulted cardiology. Patient is started on aspirin 81 mg, clopidogrel 75 mg and atorvastatin 40 mg daily. * Lower limb angiogram done and found to have blockages in multiple arteries and treated with balloon lithotripsy and angioplasty. * Podiatry on board and we will follow up with the recommendations. Sepsis due to possible secondary infection of the gangrene, POA * Presented with pulse 132, temperature 100.8, CRP 16, procalcitonin 0.95, lactate 2.5, ESR 38. 24 hour blood culture negative * Started on empiric antibiotic vancomycin and Zosyn * Consulted ID for the further recommendations. Consulted Podiatry for necessary intervention * After the procedure the Dr. Dean wanted to do amputation of left toe. Myelodysplastic syndrome on chemotherapy (immunocompromised state), POA * Consulted Hematology and Oncology Acute gout flare (less likely given necrosis and trauma history), POA * Patient has a history of gout. Uric acid 5.4 * Continue Solu-Medrol * Continue allopurinol Acute kidney injury, POA * Creatinine 1.3>1.1>1.2>1.1 * We will avoid nephrotoxic drugs and monitor the renal function. * FENA 2.2 Anemia, POA * Hemoglobin 11.0, MCV is 101.3, RDW is 16.2 * Iron is 125, TIBC is 353, % sat is 35.4, ferritin is 706, vitamin B12 is 1053. * We will trend hemoglobin regularly DVT prophylaxis: Heparin 5000 units b.i.d. GI prophylaxis: Famotidine 20 mg b.i.d. ATTESTATION BY PHYSICIAN I have seen and examined the patient. I reviewed the documentation, medical decision making, and treatment plan as noted by the resident provider above. I agree with the findings and plan of care. MAGUI BREWER MD, ADIL SHAH QUADRI MD Feb 26, 2025 16:17
[2025-02-26] MEDS: GABAPENTIN 300 MG CAPSULE PO SCH (20:08)
--- NOTE | 2025-02-26 22:43 | PN ---
INFECTIOUS DISEASE PROGRESS NOTE Date of Service: Feb 26, 2025 SUBJECTIVE: This is a 69-year-old male patient who is s/p peripheral angiogram with intervention. Currently pending a Tcoms study. Patient had an MRI of the left foot done today and we will follow up interpretation. We will continue on vancomycin and Zosyn. PHYSICAL EXAM EYES: Anicteric. Pupils equal and reactive. HENT: No oral thrush seen, moist Oral mucosa NECK: Supple, no JVD or thyromegaly. LUNGS: Good air entry. No rales, no rhonchi. CARDIOVASCULAR: S1, S2 regular. No murmur heard. ABDOMEN: Soft, non tender, bowel sounds present, no organomegaly CENTRAL NERVOUS SYSTEM: Awake, alert, oriented x 3. No focal deficits. SKIN: No rashes, no swelling. Left 5th toe with gangrene. Left foot swelling and cellulitis. LYMPHATICS: No peripheral lymphadenopathy MUSCULOSKELETAL: No joint swelling, erythema or tenderness. EXTREMITIES: No cyanosis or clubbing. Left 5th toe gangrene. BACK: No deformity, no pressure ulcer. GENITOURINARY: No dysuria or hematuria. Vital Sign (Last 12 Hours) 02/26/25 02/26/25 02/26/25 02/26/25 12:00 16:00 20:00 20:00 Temp 98.4 97.5 98.1 Pulse 82 80 91 Resp 20 18 18 B/P (MAP) 161/74 117/61 127/73 Pulse Ox 97 98 97 O2 Delivery Room Air Room Air Room Air Room Air* O2 Flow Rate 0 FiO2 21 Intake & Output (last 24hrs) 02/25/25 02/25/25 02/26/25 15:00 23:00 07:00 Intake Total 1080.0 ml 150.0 ml Output Total 700 ml Balance 380.0 ml 150.0 ml LABS: Laboratory: Test 02/26/25 04:30 02/25/25 07:03 02/25/25 04:09 Range/Units White Blood Count 9.1 4.8-10.8 K/uL Red Blood Count 3.70 L 4.50-6.20 MIL/uL Hemoglobin 12.1 L 14.0-18.0 g/dL Hematocrit 37.3 L 42-54 % Mean Corpuscular Volume 100.8 H 79-99 fL Mean Corpuscular Hemoglobin 32.7 27.0-33.0 pg Mean Corpuscular Hemoglobin Concent 32.4 32.0-36.0 g/dL Red Cell Distribution Width 16.1 H 11.0-15.5 % Platelet Count 248 130-400 K/uL Mean Platelet Volume 10.7 H 7.5-10.5 fL Nucleated Red Blood Cells 0.0 0.0-0.19 % Erythrocyte Sedimentation Rate 18 0-20 MM/HR Sodium Level 141 136-145 mmol/L Potassium Level 4.0 3.5-5.1 mmol/L Chloride Level 106 101-111 mmol/L Carbon Dioxide Level 22 21-32 mmol/L Blood Urea Nitrogen 30 H 7-18 mg/dL Creatinine 1.2 0.5-1.3 mg/dL Glomerular Filtration Rate Calc 66 >90 mL/min Random Glucose 184 H 70-105 mg/dL Total Calcium 8.8 8.5-10.1 mg/dL C-Reactive Protein, Quantitative 9.00 H 0.5-3.0 mg/L Prothrombin Time 10.1 9.6-11.6 SEC Prothromb Time International Ratio 0.95 0.85-1.15 Activated Partial Thromboplast Time 24.2 L 26.3-35.5 SEC Immature Granulocyte % (Auto) 6.4 H 0-1 % Neutrophils (%) (Auto) 61.8 40.0-77.0 % Lymphocytes (%) (Auto) 13.0 L 21.0-51.0 % Monocytes (%) (Auto) 17.9 H 3.0-13.0 % Eosinophils (%) (Auto) 0.4 0.0-8.0 % Basophils (%) (Auto) 0.5 0.0-5.0 % Neutrophils # (Auto) 6.8 1.8-7.7 K/uL Lymphocytes # (Auto) 1.4 1.0-4.8 K/uL Monocytes # (Auto) 2.0 H 0.1-1.0 K/uL Eosinophils # (Auto) 0.04 0.00-0.70 K/uL Basophils # (Auto) 0.05 0.00-0.20 K/uL Absolute Immature Granulocyte (auto 0.70 0-1 K/uL Magnesium Level 2.20 1.80-2.40 mg/dL ASSESSMENT: Left 5th toe gangrene, status post peripheral angiogram. Left foot cellulitis. Myelodysplastic syndrome, on chemotherapy. Underlying myelosuppression. Gout with possible flare-up. PLAN: Continue vancomycin per pharmacy protocol. Continue Zosyn IV. Continue pain management. Continue wound care. Rotating Equipment Engineer following patient. Continue Solu-Medrol IV. We will follow up on the MRI results. This case was reviewed and discussed with my supervising physician Dr. Chapman and the above assessment and plan was formulated and agreed upon. ATTESTATION BY PHYSICIAN I have seen and examined the patient. I reviewed the documentation, medical decision making, and treatment plan as noted by the mid-level provider above. I agree with the findings and plan of care. RIC CHAPMAN MD, MIRTA L [facility] Feb 26, 2025 22:43
[2025-02-27] VITALS (22 sets, daily range): BP systolic 96–150; BP diastolic 60–81; PULSE 47–69; RESP 14–20; TEMP 97–97.6; O2SAT 98
--- NOTE | 2025-02-27 06:02 | NUR ---
TRANSPORTED TO OR PATIENT TAKEN TO OR BY OR TRANSPORTER AT THIS TIME, ALERT AND ORIENTED X 4, DENIES PAIN.
[2025-02-27 06:31] LABS: NUCLEATED RED BLOOD CELLS 0.0 % (0.0-0.19); PLATELET COUNT (AUTO) 292.0 K/uL (130-400); RED BLOOD CELL COUNT(AUTO) 3.66 MIL/uL (4.50-6.20); RED CELL DISTRIBUTION WIDTH 16.6 % (11.0-15.5); WHITE BLOOD COUNT (AUTO) 19.7 K/uL (4.8-10.8)
[2025-02-27] MEDS ORDERED: LIDOCAINE HCL 1% 20 ML VIAL ONE (06:41)
[2025-02-27 06:42] LABS: CREATININE 1.2 mg/dL (0.5-1.3); GLOMERULAR FILTR. RATE CALC 66.0 mL/min (>90); GLUCOSE,RANDOM 85.0 mg/dL (70-105); SODIUM SERUM 142.0 mmol/L (136-145); UREA NITROGEN, BLOOD 31.0 mg/dL (7-18)
[2025-02-27] MEDS ORDERED: MIDAZOLAM HCL 1 MG/ML 2ML VIAL ONE (06:44)
--- NOTE | 2025-02-27 08:30 | NUR ---
ARRIVED FROM PROCEDURE, VITALS STABLE ON 2L NASAL CANNULA, ALERT AND ORIENTED X4, DENIES PAIN AT THIS TIME
--- NOTE | 2025-02-27 08:36 | NUR ---
ZOSYN AM DOSE GIVEN IN PROCEDURE
[2025-02-27] MEDS: Solu-medROL 40MG VIAL IVP SCH (08:58)
--- NOTE | 2025-02-27 09:10 | OP ---
Operative Note: DATE OF PROCEDURE: 02/27/25 SURGEON: HOA OCONNOR DPM LOADING DOCK HELPER: Or tech ANESTHESIA: 1% xylocaine 0.25% Marcaine total of 10 cc plain to the forefoot left under IV sedation. ANESTHESIOLOGIST/CARDIAC CATHETERIZATION TECHNICIAN: Carlos Miguel CRNA PREOPERATIVE DIAGNOSIS: Gangrene 5th toe left foot POSTOPERATIVE DIAGNOSIS: Gangrene 5th toe left foot SYNOPSIS: 69 years old male admitted to the hospital with gangrene to the 5th toe left found to have arterial occlusion lower extremity status post angioplasty at this time decision was made for amputation of this 5th toe no guarantees were offered at this time. PROCEDURE: Amputation 5th toe left foot metatarsal head level ESTIMATED BLOOD LOSS: Less than 5 cc INDICATIONS: Gangrene 5th toe left DESCRIPTION OF PROCEDURE: Patient was brought into the operating table placed in the supine position on the IV sedation local anesthesia was achieved via local infiltration of 1% xylocaine 0.25% Marcaine a total of 10 cc given to the metatarsal area of the forefoot left 5th metatarsal. At this time the foot was prepped and draped in the usual sterile fashion. Attention was directed towards the 5th toe left foot. Two semielliptical incisions were performed along the 5th toe left at the level of metatarsophalangeal joint area. At this time dissection was continued down to capsular level bleeders were cauterized utili zing electrocautery at this moment the metatarsophalangeal joint was identified and medial lateral dorsal and plantar capsulotomy were performed by this mean removing the 5th toe at the metatarsophalangeal joint level. At this moment utilizing about quarter to head of the 5th metatarsal was transected at the level of the surgical neck and removed it. Cultures and sensitivity were taken and the wound was irrigated with1 L of normal saline. Wound was reapproximated with 2-0 nylon on the simple fashion. Dressing was applied lysing Adaptic 4x4s and Kerlix patient tolerated procedure and anesthesia well was sent to recovery room with vital signs stable. Plan for continued antibiotics and local wound care at this time. HOA OCONNOR DPM Feb 27, 2025 09:10
--- NOTE | 2025-02-27 13:48 | PN ---
[facility] PROGRESS NOTE Date of Service: Feb 27, 2025 Time of Service: 13:47 SUBJECTIVE: Mr. Murray Reina is a 69-year-old male who presents to the emergency department with complaints of severe pain and necrosis of the left fifth toe. The patient reports that the pain began approximately eight days ago, initially attributing it to a possible gout attack. Several days later, he stubbed his left pinky toe, after which he noticed progressive discoloration and necrosis of the toe, accompanied by worsening pain, which he rates as 30/10 in severity. He has a significant past medical history of myelodysplastic syndrome, diagnosed one year ago, and is currently under the care of Dr. Hubert Simms. He receives monthly chemotherapy but canceled his scheduled treatment today due to his current condition. The patient also reports that he has not refilled two of his regular medications after returning from a recent vacation. Over the past week, he has observed increasing swelling, redness, and inflammation of the left lower extremity. He denies current fever but endorses intermittent chills and subjective low-grade fevers over the past week. He denies any other complaints aside from the severe pain in the affected toe. In the emergency department, an X-ray of the left foot was performed, revealing soft tissue swelling, no acute osseous injury, mild degenerative changes of the first metatarsophalangeal joint, and dorsal tissue swelling. Evaluation noted plantar surface with black necrotic tissue/eschar. Surrounding tissue is red. Periwound is mild erythematous with dry and scaly. He has been referred to the hospitalist service for further evaluation and management. 02/20/2025: He was evaluated at the bedside this morning. He is AAO x3 he complained of pain in his left foot which has slightly improved. The black necrotic eschar was noted on his left 5th toe. Remarkable lab is for ESR 38, CRP 16, procalcitonin 0.94, lactate 2.5, creatinine 1.3. potassium 3.7. Atrial ultrasound revealed 60-70% left mid superficial artery stenosis with no flow in right proximal superficial artery. Cardiology is consulted for the necessary intervention the peripheral artery disease leading to dry gangrene of left 5th toe. ID consulted for possible sepsis. Podiatry consulted for the gangrenous left foot. Rest of the plan as discussed below 02/21/2025: He was evaluated at the bedside this morning. No overnight event. He is AAO x3. He complains of mild left foot pain. He is hemodynamically stable and labs remarkable for CRP 98, creatinine 1.3, procalcitonin 0.94, hemoglobin 11.9. Cardiology want angiogram of the bilateral limb but patient denied the catheterization. We will defer the catheterization for now. He is continued on vancomycin, Zosyn and Solu-Medrol along with aspirin, Plavix and atorvastatin. ID is on board. Podiatry consulted for the gangrene of the left 5th toe. Rest of the plan as discussed below. 02/22/2025: He was evaluated at the bedside this morning. No Overnight event. Who is AAO x3. He complains of mild left foot pain. He is hemodynamically stable and labs remarkable for CRP 54, Cr 1.1, procalcitonin 0.94, Hb 11.6. Patient denies palpitation yesterday but he agreed for today. Cardiology going to scheduling for catheterization today. He is continued on vancomycin, Zosyn and Solu-Medrol along with aspirin, Plavix and atorvastatin. ID is on board. Podiatry consulted for the gangrene of the left 5th toe. Rest of the plan as discussed below. 02/23/2025: He was evaluated at the bedside this morning. No Overnight event. Who is AAO x3. He complains of mild left foot pain. Vital signs are in the normal range. Labs are normal except for Hb 11.5, BUN 26, glucose 122, ferritin 706, vitamin B12 1053. Blood culture showed no growth after 4 days. Today morning blood pressure is 151/91 and we started his home medication lisinopril. After the medication his blood pressure is in the normal range. Actually he is supposed to be scheduled for angiography and potential revascularization yesterday by Dr. 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 The doctor who is validation technician will not perform the procedure. So they are planning to the procedure on Tuesday. After the procedure the Dr. Dean wanted to do amputation of left toe. 02/24/2025: He was evaluated at the bedside this morning. No overnight event. He is AAO x3. He was complaining of mild left lower limb pain more concentrated on 5th digit. The pain typically get worse when he put his leg on the bed and get better when he put it down hanging which seems like limb claudication. He is hemodynamically stable. Labs remarkable for creatinine 1.1 CRP 17. He is continued on vancomycin, Zosyn, aspirin, Plavix, clopidogrel and lisinopril daily. He is pending angiogram of bilateral lower limb tomorrow and possible intervention if required. Podiatry we will follow post catheterization with necessary intervention for left 5th toe gangrene. Podiatry, ID and Cardiology on the board. Rest of the plan as discussed below. 02/25/2025: Patient seen and evaluated bedside in room 332. Discussed with RN, no acute overnight events. Patient is complaining of severe pain, was receiving only Tylenol as needed by mouth. Patient is on NPO, scheduled for peripheral angiogram this afternoon. Started Dilaudid 0.5 mg q.6 hourly p.r.n. for severe pain. Patient's vitals blood pressure 106/46, heart rate 60, respiratory rate 18, saturating 97% at room air. Blood culture shows no growth after5 days. Podiatry, ID and cardiology on board and we will follow up with their rashaun mmendation. 02/26/2025: Patient seen and evaluated bedside in room 332. Case discussed with RN, no ac nome overnight events. Patient underwent peripheral angiogram and found to have multiple blockages in multiple arteries in left lower limb and treatment with balloon angioplasty was performed. Nonhealing ulceration 5th digit of left foot, Podiatry was consulted and we will follow up with the recommendations. 02/27/2025: Patient seen and evaluated bedside in room 332. Discussed with RN, no acute overnight events. Patient underwent amputation of 5th digit of left foot by Dr. Dean this morning. Patient says he is feeling well, vitals look stable. Pending food MRI report. ID and podiatry on board and we will follow up with the recommendations. REVIEW OF SYSTEMS CONSTITUTIONAL: Denies fevers, chills, or night sweats. No unintentional weight loss reported. NEUROLOGICAL: Denies headache, amaurosis fugax, motor weakness, sensory deficit, vertigo/spinning sensation, gait abnormalities, or tremors. ENT: No hearing loss, otalgia, otorrhea, rhinitis, rhinorrhea, hoarseness, or sore throat. CARDIOVASCULAR: Denies any exertional angina, dyspnea on exertion, orthopnea, paroxysmal nocturnal dyspnea, palpitations, life-threatening arrhythmias, claudication. PULMONARY: Denies any shortness of breath, cough, phlegm/sputum, hemoptysis, pleuritic chest pain. SLEEP: Denies morning headaches, daytime somnolence or napping. Denies difficulty falling asleep, staying asleep, waking from sleep. Denies knowledge of snoring. GASTROINTESTINAL: Denies any type of dysphagia to either liquids or solids. Denies nausea, vomiting, pyrosis, early satiety, abdominal pain, diarrhea, constipation, or changes in stool consistency or caliber. Denies coffee-ground emesis, hematemesis, hematochezia, or melanotic stools. GENITOURINARY: Denies frequency, urgency, nocturia, hematuria or incontinence (Storage/Irritative symptoms.) Low urinary stream, straining to void, urinary intermittency or hesitancy, splitting of the voiding stream, terminal dribbling. ENDOCRINOLOGIC: Denies polyuria, polydipsia, polyphagia or heat/cold intolerances. HEMATOLOGIC: Denies thrombophilia/previous clots, or coagulopathy/bleeding diso rders. ONCOLOGIC: Denies personal history of malignancy. DERMATOLOGIC: Denies rashes or pruritus. PSYCHIATRIC: Denies any suicidal or homicidal ideation. Denies hallucinations. PHYSICAL EXAM GENERAL APPEARANCE: The patient is awake, alert, and oriented, in no acute cardiopulmonary distress. NEUROLOGICAL: Cranial nerves II-XII grossly intact. Motor is 5/5 in bilateral upper and lower extremities proximal to distal. No sensory deficits. HEENT: Face is symmetric. NECK: Supple. No JVD. No thyromegaly. CHEST: Normal chest expansion. No Telemetry. LUNGS: Absence of any rales, rhonchi or any wheezing. CARDIOVASCULAR: Regular. S1 and S2 normal. No appreciable rubs, murmurs or gallops. ABDOMEN: Soft, nontender, and nondistended. There is no rebound, voluntary guarding, or rigidity. : Deferred. No Swanson. EXTREMITIES: Necrotic gangrenous left 5th toe, SKIN: No skin breakdown. Vital Signs (last 8hr) Date Time Temp Pulse Resp B/P (MAP) Pulse Ox O2 Delivery O2 Flow Rate FiO2 02/27/25 12:00 97.3 65 20 146/66 95 Room Air 02/27/25 10:09 Room Air* 0 21 02/27/25 09:45 69 20 134/65 97 Room Air 02/27/25 09:15 49 20 139/60 95 Room Air 02/27/25 09:00 47 20 147/67 98 Room Air 02/27/25 08:45 51 20 96/69 97 Room Air 02/27/25 08:30 51 20 99/69 98 Room Air 02/27/25 08:25 97.2 50 14 138/68 99 Nasal Cannula 2.0 02/27/25 08:20 51 15 145/67 96 Nasal Cannula 2.0 02/27/25 08:15 50 16 145/67 97 Nasal Cannula 2.0 02/27/25 08:10 54 17 148/69 99 Nonrebreathing Mask 10.0 02/27/25 08:05 50 16 145/71 99 Nonrebreathing Mask 10.0 02/27/25 08:00 51 15 137/67 99 Nonrebreathing Mask 10.0 02/27/25 07:55 52 17 139/67 99 Nonrebreathing Mask 10.0 02/27/25 07:50 52 14 131/64 99 Nonrebreathing Mask 10.0 02/27/25 07:45 55 14 127/63 99 Nonrebreathing Mask 10.0 02/27/25 07:40 97.0 54 15 127/64 99 Nonrebreathing Mask 10.0 LABS: Laboratory: Test 02/27/25 06:25 02/26/25 04:30 02/25/25 16:54 Range/Units White Blood Count 19.7 H 4.8-10.8 K/uL Red Blood Count 3.66 L 4.50-6.20 MIL/uL Hemoglobin 12.2 L 14.0-18.0 g/dL Hematocrit 36.8 L 42-54 % Mean Corpuscular Volume 100.5 H 79-99 fL Mean Corpuscular Hemoglobin 33.3 H 27.0-33.0 pg Mean Corpuscular Hemoglobin Concent 33.2 32.0-36.0 g/dL Red Cell Distribution Width 16.6 H 11.0-15.5 % Platelet Count 292 130-400 K/uL Mean Platelet Volume 11.0 H 7.5-10.5 fL Nucleated Red Blood Cells 0.0 0.0-0.19 % Sodium Level 142 136-145 mmol/L Potassium Level 4.1 3.5-5.1 mmol/L Chloride Level 106 101-111 mmol/L Carbon Dioxide Level 28 21-32 mmol/L Blood Urea Nitrogen 31 H 7-18 mg/dL Creatinine 1.2 0.5-1.3 mg/dL Glomerular Filtration Rate Calc 66 >90 mL/min Random Glucose 85 70-105 mg/dL Total Calcium 8.8 8.5-10.1 mg/dL Erythrocyte Sedimentation Rate 18 0-20 MM/HR C-Reactive Protein, Quantitative 9.00 H 0.5-3.0 mg/L Kaolin Activated Coagulation Time 233 H 74-137 SEC Current Medications Medications (Trade) Dose Ordered Sig/Antonio Route PRN Reason Start Time Stop Time Status Last Admin Dose Admin Acetaminophen (TYLenol 325MG TAB) 650 mg Q4H PRN PO TEMPERATURE GREATER THAN 101.5 02/19/25 16:00 03/21/25 15:59 Acetaminophen (TYLenol 325MG TAB) 650 mg Q6H PRN PO MILD PAIN (1-3) 02/19/25 16:00 03/21/25 15:59 Acetaminophen/ Codeine Phosphate (TYLenol-coDEINE TAB) 2 tab Q4H PRN PO MODERATE PAIN (4-6) 02/20/25 11:30 03/22/25 11:29 02/27/25 00:07 2 TAB Allopurinol (ZYLOprim 300MG) 300 mg DAILY PO 02/22/25 09:00 03/24/25 08:59 02/27/25 08:58 300 MG Aspirin (Aspirin 81mg Chew Tab) 81 mg DAILY PO 02/21/25 09:00 03/23/25 08:59 02/27/25 08:57 81 MG Atorvastatin Calcium (LIPItor 40MG) 40 mg HS PO 02/20/25 21:00 03/22/25 20:59 02/26/25 20:08 40 MG Clopidogrel Bisulfate (plaVIX 75MG) 75 mg DAILY PO 02/21/25 09:00 03/23/25 08:59 02/27/25 08:57 75 MG Famotidine (Pepcid 20mg Tab) 20 mg BID PO 02/20/25 21:00 03/22/25 20:59 02/27/25 08:55 20 MG Gabapentin (NEURontin 300 MG CAP) 300 mg BID PO 02/26/25 21:00 03/28/25 20:59 02/27/25 08:59 300 MG Heparin Sodium (Porcine) (HEParin 5,000 UNIT VIAL) 5,000 unit Q12H SQ 02/20/25 16:00 03/22/25 15:59 02/26/25 17:11 5,000 UNIT Hydromorphone HCl (DiLAUDid 0.5MG INJ) 0.5 mg Q6H PRN IVP SEVERE PAIN (7-10) 02/25/25 12:00 03/02/25 11:59 02/27/25 13:03 0.5 MG Lisinopril (Prinivil 10mg) 10 mg DAILY PO 02/24/25 09:00 02/24/25 08:51 DC 02/24/25 08:39 10 MG Lisinopril (Prinivil 20mg) 20 mg DAILY PO 02/24/25 09:00 03/26/25 08:59 02/27/25 08:58 20 MG Methylprednisolone Sodium Succinate (Solu-medROL 40MG) 20 mg DAILY IVP 02/28/25 09:00 03/30/25 08:59 Methylprednisolone Sodium Succinate (Solu-medROL 40MG) 30 mg DAILY IVP 02/27/25 09:00 02/27/25 12:51 DC 02/27/25 08:58 30 MG Methylprednisolone Sodium Succinate (Solu-medROL 40MG) 40 mg DAILY IVP 02/20/25 15:00 02/26/25 11:21 DC 02/26/25 09:30 40 MG Morphine Sulfate (morPHINE 4MG SYG) 2 mg Q4H PRN IVP SEVERE PAIN (7-10) 02/19/25 16:00 02/24/25 18:59 DC 02/20/25 13:08 2 MG Ondansetron HCl (zoFRAN 4MG INJ) 4 mg Q6H PRN IVP NAUSEA/VOMITING 02/19/25 16:00 03/21/25 15:59 Piperacillin Sod/ Tazobactam Sod (Zosyn 3.375gm+NS 50ml) 3.375 gm Q8H IVPB 02/19/25 16:00 03/01/25 15:59 02/26/25 23:24 3.375 GM Sodium Chloride 1,000 ml @ 100 mls/hr Q10H IV 02/25/25 18:00 02/25/25 20:59 DC 02/25/25 18:44 100 MLS/HR Sodium Chloride (NS 50ml) 50 ml AD IV 02/19/25 23:00 02/20/25 11:44 DC Vancomycin HCl 250 ml @ 125 mls/hr Q24H IV 02/20/25 17:00 03/02/25 16:59 02/26/25 18:29 125 MLS/HR Vancomycin HCl (Vancomycin Protocol) 1 each AD IV 02/19/25 16:00 03/05/25 15:59 DIAGNOSTICS / RADIOLOGY: [ ] ASSESSMENT: Gangrene of the left 5th toe due to possible vascular compromise, POA Sepsis due to possible secondary infection of the gangrene Myelodysplastic syndrome on chemotherapy (immunocompromised state), POA Acute gout flare (less likely given necrosis and trauma history), POA Acute kidney injury, POA Anemia, POA PLAN: Gangrene of the left 5th toe due to possible vascular compromise, POA * He had a severe pain 10 days back with purplish discoloration which progressed to a black eschar like lesion on the left 5th toe. Foot x-ray did not reveal any acute osseous injury. Arterial ultrasound revealed calcified 60-70% stenosis in left mid superficial artery with no flow in right proximal superficial artery. * Consulted cardiology. Patient is started on aspirin 81 mg, clopidogrel 75 mg and atorvastatin 40 mg daily. * Lower limb angiogram done and found to have blockages in multiple arteries and treated with balloon lithotripsy and angioplasty. * Left 5th toe amputation done by this morning Sepsis due to possible secondary infection of the gangrene, POA * Presented with pulse 132, temperature 100.8, CRP 16, procalcitonin 0.95, lactate 2.5, ESR 38. 24 hour blood culture negative * Started on empiric antibiotic vancomycin day 8 and Zosyn day 9 * Consulted ID for the further recommendations. Myelodysplastic syndrome on chemotherapy (immunocompromised state), POA * Consulted Hematology and Oncology Acute gout flare (less likely given necrosis and trauma history), POA * Patient has a history of gout. Uric acid 5.4 * Continue Solu-Medrol * Continue allopurinol Acute kidney injury, POA * Creatinine 1.3>1.1>1.2>1.1 * We will avoid nephrotoxic drugs and monitor the renal function. * FENA 2.2 Anemia, POA * Hemoglobin 11.0, MCV is 101.3, RDW is 16.2 * Iron is 125, TIBC is 353, % sat is 35.4, ferritin is 706, vitamin B12 is 1053. * We will trend hemoglobin regularly DVT prophylaxis: Heparin 5000 units b.i.d. GI prophylaxis: Famotidine 20 mg b.i.d. ATTESTATION BY PHYSICIAN I have seen and examined the patient. I reviewed the documentation, medical decision making, and treatment plan as noted by the resident provider above. I agree with the findings and plan of care. MAGUI BREWER MD, ADIL SHAH QUADRI MD Feb 27, 2025 13:48
--- NOTE | 2025-02-27 15:31 | HMCIMG ---
EXAMINATION: MRI OF THE LEFT FOOT. CLINICAL HISTORY: Suspected left fifth toe osteomyelitis. COMPARISON: None available. TECHNIQUE: Multiplanar, multisequence MR images of the left foot without and with intravenous contrast were obtained. FINDINGS: There is a cutaneous irregularity over the fifth toe with moderate diffuse dorsal and plantar subcutaneous edema. The distal phalanx of the fifth toe demonstrates moderate marrow edema and possible cortical erosion consistent with osteomyelitis. No discrete drainable collection is identified. The intrinsic plantar musculature shows mild to moderate edema. Moderate diffuse dorsal forefoot and midfoot subcutaneous edema. The second and third metatarsal heads are flattened with associated subchondral fractures, indicative of Freiberg disease. Joint spaces are preserved. Visualized extensor and flexor tendons are normal in course and morphology without evidence of tenosynovitis. IMPRESSION: 1. Findings concerning for osteomyelitis of the left fifth toe distal phalanx with moderate subcutaneous edema. 2. The second and third metatarsal heads are flattened with associated subchondral fractures, indicative of Freiberg disease. 3. The intrinsic plantar musculature shows mild to moderate edema. Moderate diffuse dorsal forefoot and midfoot subcutaneous edema. No discrete drainable collection. Dedicated local ultrasound is requested to rule out cellulitis. /[place]
--- NOTE | 2025-02-27 20:43 | PN ---
INFECTIOUS DISEASE PROGRESS NOTE Date of Service: Feb 27, 2025 SUBJECTIVE: This is a 69-year-old male patient who is s/p left 5th toe amputation today secondary to gangrene. During rounding today patient is pending Radiology interpretation of the left foot MRI. The WBC trended up to 19.7 possible s econdary to IV steroids versus reactive. Remains afebrile, temperature is 97.3. We will continue to monitor and continue on vancomycin and Zosyn. PHYSICAL EXAM EYES: Anicteric. Pupils equal and reactive. HENT: No oral thrush seen, moist Oral mucosa NECK: Supple, no JVD or thyromegaly. LUNGS: Good air entry. No rales, no rhonchi. CARDIOVASCULAR: S1, S2 regular. No murmur heard. ABDOMEN: Soft, non tender, bowel sounds present, no organomegaly CENTRAL NERVOUS SYSTEM: Awake, alert, oriented x 3. SKIN: No rashes, no swelling. Left lower extremity swelling and cellulitis. LYMPHATICS: No peripheral lymphadenopathy MUSCULOSKELETAL: No joint swelling, erythema or tenderness. EXTREMITIES: No cyanosis or clubbing. 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 BACK: No deformity, no pressure ulcer. GENITOURINARY: No dysuria or hematuria. Vital Sign (Last 12 Hours) 02/27/25 02/27/25 02/27/25 02/27/25 08:45 09:00 09:15 09:45 Pulse 51 47 49 69 Resp 20 20 20 20 B/P (MAP) 96/69 147/67 139/60 134/65 Pulse Ox 97 98 95 97 O2 Delivery Room Air Room Air Room Air Room Air 02/27/25 02/27/25 02/27/25 02/27/25 10:09 10:15 12:00 13:15 Temp 97.3 Pulse 68 65 68 Resp 20 20 20 B/P (MAP) 150/60 146/66 130/64 Pulse Ox 95 95 96 O2 Delivery Room Air* Room Air Room Air Room Air O2 Flow Rate 0 FiO2 21 02/27/25 02/27/25 14:15 16:00 Temp 97.5 Pulse 69 65 Resp 20 20 B/P (MAP) 130/66 135/78 Pulse Ox 97 96 O2 Delivery Room Air Room Air Intake & Output (last 24hrs) 02/26/25 02/26/25 02/27/25 15:00 23:00 07:00 Intake Total 400 ml 1630.0 ml 50.0 ml Output Total 1000 ml Balance 400 ml 630.0 ml 50.0 ml LABS: Laboratory: Test 02/27/25 16:03 02/27/25 06:25 02/26/25 04:30 Range/Units Vancomycin Level Trough 11.3 10.0-20.0 UG/ML White Blood Count 19.7 H 4.8-10.8 K/uL Red Blood Count 3.66 L 4.50-6.20 MIL/uL Hemoglobin 12.2 L 14.0-18.0 g/dL Hematocrit 36.8 L 42-54 % Mean Corpuscular Volume 100.5 H 79-99 fL Mean Corpuscular Hemoglobin 33.3 H 27.0-33.0 pg Mean Corpuscular Hemoglobin Concent 33.2 32.0-36.0 g/dL Red Cell Distribution Width 16.6 H 11.0-15.5 % Platelet Count 292 130-400 K/uL Mean Platelet Volume 11.0 H 7.5-10.5 fL Nucleated Red Blood Cells 0.0 0.0-0.19 % Sodium Level 142 136-145 mmol/L Potassium Level 4.1 3.5-5.1 mmol/L Chloride Level 106 101-111 mmol/L Carbon Dioxide Level 28 21-32 mmol/L Blood Urea Nitrogen 31 H 7-18 mg/dL Creatinine 1.2 0.5-1.3 mg/dL Glomerular Filtration Rate Calc 66 >90 mL/min Random Glucose 85 70-105 mg/dL Total Calcium 8.8 8.5-10.1 mg/dL Erythrocyte Sedimentation Rate 18 0-20 MM/HR C-Reactive Protein, Quantitative 9.00 H 0.5-3.0 mg/L ASSESSMENT: Left 5th toe gangrene, status post amputation. Leukocytosis possible secondary to IV steroids versus reactive. Left lower extremity cellulitis. Myelodysplastic syndrome, on chemotherapy. Underlying myelosuppression. Gout with possible flare-up. PLAN: Continue vancomycin per pharmacy protocol. Continue Zosyn IV. Continue pain management. Continue wound care. Fire Manager following patient. Continue Solu-Medrol IV, dose decreased. Pending left foot MRI results. This case was reviewed and discussed with my supervising physician Dr. Chapman and the above assessment and plan was formulated and agreed upon. ATTESTATION BY PHYSICIAN I have seen and examined the patient. I reviewed the documentation, medical decision making, and treatment plan as noted by the mid-level provider above. I agree with the findings and plan of care. RIC CHAPMAN MD, [facility] Feb 27, 2025 20:43
[2025-02-27] MEDS: VANCOMYCIN 1.5 GM/250 ML BAG 250 ML IV SCH (21:29)
[2025-02-28] VITALS: BP 147/71; PULSE 72; RESP 20; TEMP 97.4
--- NOTE | 2025-02-28 02:35 | PN ---
SUBJECTIVE: The patient denies any significant pain after having fifth toe amputation. The patient has remained afebrile. PHYSICAL EXAMINATION: VITAL SIGNS: Stable, afebrile. GENERAL: The patient is alert, in no acute distress. HEART: Regular rate and rhythm. LUNGS: With diminished breath sounds at both bases. No crackles. ABDOMEN: Soft. No tenderness. Bowel sounds present. EXTREMITIES: Improved pitting edema of the left leg. Foot covered with a clean, dry dressing. LABORATORY DATA: WBC 19.7, hemoglobin 12.2, platelet count 292, BUN 31, creatinine 1.2. ASSESSMENT: 1. Left fifth toe gangrene, status post amputation. 2. Peripheral vascular disease. 3. MDS. PLAN: The patient remains stable with some degree of leukocytosis. Decrease dose of Solu-Medrol down to 20 mg p.o. daily. Continue with IV antibiotics. Continue to hold venetoclax and Promacta. Follow-up appointment next week at the office if the patient gets discharged in the next day or two. TID: [id number] RECEIPT: [id number]
[2025-02-28 04:00] VITALS: BP 130/61; PULSE 56; RESP 20; TEMP 97.4
[2025-02-28 04:28] LABS: NUCLEATED RED BLOOD CELLS 0.0 % (0.0-0.19); PLATELET COUNT (AUTO) 250.0 K/uL (130-400); RED BLOOD CELL COUNT(AUTO) 3.62 MIL/uL (4.50-6.20); RED CELL DISTRIBUTION WIDTH 16.7 % (11.0-15.5); WHITE BLOOD COUNT (AUTO) 16.1 K/uL (4.8-10.8)
[2025-02-28 04:38] LABS: CREATININE 1.2 mg/dL (0.5-1.3); GLOMERULAR FILTR. RATE CALC 66.0 mL/min (>90); GLUCOSE,RANDOM 120.0 mg/dL (70-105); SODIUM SERUM 143.0 mmol/L (136-145); UREA NITROGEN, BLOOD 29.0 mg/dL (7-18)
[2025-02-28 08:00] VITALS: BP 133/59; PULSE 65; RESP 20; TEMP 97.4; O2SAT 97
[2025-02-28] MEDS: Solu-medROL 40MG VIAL IVP SCH (09:00)
--- NOTE | 2025-02-28 11:50 | PN ---
INFECTIOUS DISEASE PROGRESS NOTE Date of Service: Feb 28, 2025 SUBJECTIVE: This is a 69-year-old male patient who is s/p left 5th toe amputation day # 1. The preliminary left foot wound cultures is growing Gram-negative rods and the left foot MRI is positive for osteomyelitis of the left 5th toe distal phalanx. WBC remains high at 16.1 but improved. No fever, temperature is 97.3. We will continue on vancomycin and Zosyn and follow up on the final wound culture results. PHYSICAL EXAM EYES: Anicteric. Pupils equal and reactive. HENT: No oral thrush seen, moist Oral mucosa NECK: Supple, no JVD or thyromegaly. LUNGS: Good air entry. No rales, no rhonchi. CARDIOVASCULAR: S1, S2 regular. No murmur heard. ABDOMEN: Soft, non tender, bowel sounds present, no organomegaly CENTRAL NERVOUS SYSTEM: Awake, alert, oriented x 3. SKIN: No rashes, no swelling. Left lower extremity swelling and cellulitis. LYMPHATICS: No peripheral lymphadenopathy MUSCULOSKELETAL: No joint swelling, erythema or tenderness. EXTREMITIES: No cyanosis or clubbing. 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 BACK: No deformity, no pressure ulcer. GENITOURINARY: No dysuria or hematuria. Vital Sign (Last 12 Hours) 02/28/25 02/28/25 02/28/25 02/28/25 00:00 04:00 08:00 08:00 Temp 97.3 97.3 97.3 Pulse 72 56 65 Resp 20 20 20 B/P (MAP) 147/71 130/61 133/59 Pulse Ox 97 98 100 97 O2 Delivery Room Air Room Air Room Air Room Air* O2 Flow Rate 0 FiO2 21 21 Intake & Output (last 24hrs) 02/27/25 02/27/25 02/28/25 15:00 23:00 07:00 Intake Total 300.0 ml Balance 300.0 ml LABS: Laboratory: Test 02/28/25 04:16 02/27/25 16:03 Range/Units White Blood Count 16.1 H 4.8-10.8 K/uL Red Blood Count 3.62 L 4.50-6.20 MIL/uL Hemoglobin 11.9 L 14.0-18.0 g/dL Hematocrit 37.3 L 42-54 % Mean Corpuscular Volume 103.0 H 79-99 fL Mean Corpuscular Hemoglobin 32.9 27.0-33.0 pg Mean Corpuscular Hemoglobin Concent 31.9 L 32.0-36.0 g/dL Red Cell Distribution Width 16.7 H 11.0-15.5 % Platelet Count 250 130-400 K/uL Mean Platelet Volume 11.1 H 7.5-10.5 fL Nucleated Red Blood Cells 0.0 0.0-0.19 % Sodium Level 143 136-145 mmol/L Potassium Level 4.4 3.5-5.1 mmol/L Chloride Level 106 101-111 mmol/L Carbon Dioxide Level 28 21-32 mmol/L Blood Urea Nitrogen 29 H 7-18 mg/dL Creatinine 1.2 0.5-1.3 mg/dL Glomerular Filtration Rate Calc 66 >90 mL/min Random Glucose 120 H 70-105 mg/dL Total Calcium 8.7 8.5-10.1 mg/dL Vancomycin Level Trough 11.3 10.0-20.0 UG/ML DIAGNOSTIC/RADIOLOGY: PATIENT: CALEB MOSHER ACCT: [id number] LOC: [facility] U: [id number] AGE/SX: 69/M ROOM: [facility] RE02/19/[address]: CARMEN PETER MD : 1955 BED: 1 DIS: STATUS: ADM IN TLOC: SPEC: [id number] ANDREA: 02/27/25 STATUS: RES REQ: [id number] RECD: 02/27/[address] [facility] [address]: HOA OCONNOR DPM SOURCE: TOE ENTR: 02/27/[address] [facility] [address]: RIC CHAPMAN MD SPDESC: LEFT BIG MARCELLE GALLARDO MD, CHRISTIAN E MD TORKELSON, NINA L YARDLEY, DAVID E MD ORDERED: GS, WINNIE CULTURE, AEROBIC CULTURE COMMENTS: Has specimen been collected/obtained? Y Specimen Comment: FIFTH TOE LEFT FOOT Has specimen been collected/obtained? Y Specimen Comment: FIFTH TOE LEFT FOOT Has specimen been collected/obtained? Y Specimen Comment: FIFTH TOE LEFT FOOT Has specimen been collected/obtained? Y Specimen Comment: FIFTH TOE LEFT FOOT Has specimen been collected/obtained? Y Specimen Comment: FIFTH TOE LEFT FOOT Procedure Result Dhruv Date-Time GRAM STAIN ONLY Final 02/27/25 GRAM STAIN: RARE WBC NO ORGANISMS SEEN ANAEROBIC CULTURE Preliminary 02/28/25 [facility] DESCRIPTION: REPORT 1: NO ANAEROBES AT 24-35 HOURS; STUDIES TO CONTINUE Test(s) performed by: [facility] [address] [facility] [place] [address] AEROBIC CULTURE Preliminary 02/28/25 [facility] DESCRIPTION: REPORT 1: 1+ GRAM NEGATIVE RODS IDENTIFICATION AND SENSITIVITY TO FOLLOW ASSESSMENT: Left 5th toe gangrene with osteomyelitis, s/p amputation. Leukocytosis. Left lower extremity cellulitis. Myelodysplastic syndrome, on chemotherapy. Underlying myelosuppression. Constipation. PLAN: Continue vancomycin per pharmacy protocol. Continue Zosyn IV. We will follow up on the final wound culture results. Continue pain management. Continue wound care as recommended by straight truck driver. Give lactulose 20 g p.o. every 6 hours until BM then change to p.r.n. This case was reviewed and discussed with my supervising physician Dr. Chapman and the above assessment and plan was formulated and agreed upon. ATTESTATION BY PHYSICIAN I have seen and examined the patient. I reviewed the documentation, medical decision making, and treatment plan as noted by the mid-level provider above. I agree with the findings and plan of care. RIC CHAPMAN MD, [facility] Feb 28, 2025 11:50
[2025-02-28 12:00] VITALS: BP 122/59; PULSE 63; RESP 20; TEMP 97.4
[2025-02-28] MEDS: LACTULOSE 20 GM/30 ML UDCUP PO SCH (12:00)
--- NOTE | 2025-02-28 13:18 | PN ---
[facility] PROGRESS NOTE Date of Service: Feb 28, 2025 Time of Service: 13:17 SUBJECTIVE: Mr. Caleb Reina is a 69-year-old male who presents to the emergency department with complaints of severe pain and necrosis of the left fifth toe. The patient reports that the pain began approximately eight days ago, initially attributing it to a possible gout attack. Several days later, he stubbed his left pinky toe, after which he noticed progressive discoloration and necrosis of the toe, accompanied by worsening pain, which he rates as 30/10 in severity. He has a significant past medical history of myelodysplastic syndrome, diagnosed one year ago, and is currently under the care of Dr. Hubert Simms. He receives monthly chemotherapy but canceled his scheduled treatment today due to his current condition. The patient also reports that he has not refilled two of his regular medications after returning from a recent vacation. Over the past week, he has observed increasing swelling, redness, and inflammation of the left lower extremity. He denies current fever but endorses intermittent chills and subjective low-grade fevers over the past week. He denies any other complaints aside from the severe pain in the affected toe. In the emergency department, an X-ray of the left foot was performed, revealing soft tissue swelling, no acute osseous injury, mild degenerative changes of the first metatarsophalangeal joint, and dorsal tissue swelling. Evaluation noted plantar surface with black necrotic tissue/eschar. Surrounding tissue is red. Periwound is mild erythematous with dry and scaly. He has been referred to the hospitalist service for further evaluation and management. 02/20/2025: He was evaluated at the bedside this morning. He is AAO x3 he complained of pain in his left foot which has slightly improved. The black necrotic eschar was noted on his left 5th toe. Remarkable lab is for ESR 38, CRP 16, procalcitonin 0.94, lactate 2.5, creatinine 1.3. potassium 3.7. Atrial ultrasound revealed 60-70% left mid superficial artery stenosis with no flow in right proximal superficial artery. Cardiology is consulted for the necessary intervention the peripheral artery disease leading to dry gangrene of left 5th toe. ID consulted for possible sepsis. Podiatry consulted for the gangrenous left foot. Rest of the plan as discussed below 02/21/2025: He was evaluated at the bedside this morning. No overnight event. He is AAO x3. He complains of mild left foot pain. He is hemodynamically stable and labs remarkable for CRP 98, creatinine 1.3, procalcitonin 0.94, hemoglobin 11.9. Cardiology want angiogram of the bilateral limb but patient denied the catheterization. We will defer the catheterization for now. He is continued on vancomycin, Zosyn and Solu-Medrol along with aspirin, Plavix and atorvastatin. ID is on board. Podiatry consulted for the gangrene of the left 5th toe. Rest of the plan as discussed below. 02/22/2025: He was evaluated at the bedside this morning. No Overnight event. Who is AAO x3. He complains of mild left foot pain. He is hemodynamically stable and labs remarkable for CRP 54, Cr 1.1, procalcitonin 0.94, Hb 11.6. Patient denies palpitation yesterday but he agreed for today. Cardiology going to scheduling for catheterization today. He is continued on vancomycin, Zosyn and Solu-Medrol along with aspirin, Plavix and atorvastatin. ID is on board. Podiatry consulted for the gangrene of the left 5th toe. Rest of the plan as discussed below. 02/23/2025: He was evaluated at the bedside this morning. No Overnight event. Who is AAO x3. He complains of mild left foot pain. Vital signs are in the normal range. Labs are normal except for Hb 11.5, BUN 26, glucose 122, ferritin 706, vitamin B12 1053. Blood culture showed no growth after 4 days. Today morning blood pressure is 151/91 and we started his home medication lisinopril. After the medication his blood pressure is in the normal range. Actually he is supposed to be scheduled for angiography and potential revascularization yesterday by Dr. 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 The doctor who is operations administrator will not perform the procedure. So they are planning to the procedure on Tuesday. After the procedure the Dr. Dean wanted to do amputation of left toe. 02/24/2025: He was evaluated at the bedside this morning. No overnight event. He is AAO x3. He was complaining of mild left lower limb pain more concentrated on 5th digit. The pain typically get worse when he put his leg on the bed and get better when he put it down hanging which seems like limb claudication. He is hemodynamically stable. Labs remarkable for creatinine 1.1 CRP 17. He is continued on vancomycin, Zosyn, aspirin, Plavix, clopidogrel and lisinopril daily. He is pending angiogram of bilateral lower limb tomorrow and possible intervention if required. Podiatry we will follow post catheterization with necessary intervention for left 5th toe gangrene. Podiatry, ID and Cardiology on the board. Rest of the plan as discussed below. 02/25/2025: Patient seen and evaluated bedside in room 332. Discussed with RN, no acute overnight events. Patient is complaining of severe pain, was receiving only Tylenol as needed by mouth. Patient is on NPO, scheduled for peripheral angiogram this afternoon. Started Dilaudid 0.5 mg q.6 hourly p.r.n. for severe pain. Patient's vitals blood pressure 106/46, heart rate 60, respiratory rate 18, saturating 97% at room air. Blood culture shows no growth after5 days. Podiatry, ID and cardiology on board and we will follow up with their rashaun mmendation. 02/26/2025: Patient seen and evaluated bedside in room 332. Case discussed with RN, no ac qagan tayagungin overnight events. Patient underwent peripheral angiogram and found to have multiple blockages in multiple arteries in left lower limb and treatment with balloon angioplasty was performed. Nonhealing ulceration 5th digit of left foot, Podiatry was consulted and we will follow up with the recommendations. 02/27/2025: Patient seen and evaluated bedside in room 332. Discussed with RN, no acute overnight events. Patient underwent amputation of 5th digit of left foot by Dr. Dean this morning. Patient says he is feeling well, vitals look stable. Pending food MRI report. ID and podiatry on board and we will follow up with the recommendations. 02/28/2025: Patient seen and evaluated bedside in room 332. Case discussed with RN, no acute overnight events. Patient is complaining of severe pain at the amputation, increasing hematoma at catheter entry site for peripheral angiogram, We will order ultrasound to rule out aneurysm. We will continue antibiotics and increase the dose of Dilaudid for pain. follow up with Podiatry recommendation. REVIEW OF SYSTEMS CONSTITUTIONAL: Denies fevers, chills, or night sweats. No unintentional weight loss reported. NEUROLOGICAL: Denies headache, amaurosis fugax, motor weakness, sensory deficit, vertigo/spinning sensation, gait abnormalities, or tremors. ENT: No hearing loss, otalgia, otorrhea, rhinitis, rhinorrhea, hoarseness, or sore throat. CARDIOVASCULAR: Denies any exertional angina, dyspnea on exertion, orthopnea, paroxysmal nocturnal dyspnea, palpitations, life-threatening arrhythmias, claudication. PULMONARY: Denies any shortness of breath, cough, phlegm/sputum, hemoptysis, pleuritic chest pain. SLEEP: Denies morning headaches, daytime somnolence or napping. Denies difficulty falling asleep, staying asleep, waking from sleep. Denies knowledge of snoring. GASTROINTESTINAL: Denies any type of dysphagia to either liquids or solids. Denies nausea, vomiting, pyrosis, early satiety, abdominal pain, diarrhea, constipation, or changes in stool consistency or caliber. Denies coffee-ground emesis, hematemesis, hematochezia, or melanotic stools. GENITOURINARY: Denies frequency, urgency, nocturia, hematuria or incontinence (Storage/Irritative symptoms.) Low urinary stream, straining to void, urinary intermittency or hesitancy, splitting of the voiding stream, terminal dribbling. ENDOCRINOLOGIC: Denies polyuria, polydipsia, polyphagia or heat/cold intolerances. HEMATOLOGIC: Denies thrombophilia/previous clots, or coagulopathy/bleeding disorders. ONCOLOGIC: Denies personal history of malignancy. DERMATOLOGIC: Denies rashes or pruritus. PSYCHIATRIC: Denies any suicidal or homicidal ideation. Denies hallucinations. PHYSICAL EXAM GENERAL APPEARANCE: The patient is awake, alert, and oriented, in no acute cardiopulmonary distress. NEUROLOGICAL: Cranial nerves II-XII grossly intact. Motor is 5/5 in bilateral upper and lower extremities proximal to distal. No sensory deficits. HEENT: Face is symmetric. NECK: Supple. No JVD. No thyromegaly. CHEST: Normal chest expansion. No Telemetry. LUNGS: Absence of any rales, rhonchi or any wheezing. CARDIOVASCULAR: Regular. S1 and S2 normal. No appreciable rubs, murmurs or gallops. ABDOMEN: Soft, nontender, and nondistended. There is no rebound, voluntary guarding, or rigidity. : Deferred. No Swanson. EXTREMITIES: amputation left 5th toe-done SKIN: No skin breakdown. Vital Signs (last 8hr) Date Time Temp Pulse Resp B/P (MAP) Pulse Ox O2 Delivery O2 Flow Rate FiO2 02/28/25 12:00 97.3 63 20 122/59 98 Room Air 21 02/28/25 08:00 97 Room Air* 0 21 02/28/25 08:00 97.3 65 20 133/59 100 Room Air 21 LABS: Laboratory: Test 02/28/25 04:16 02/27/25 16:03 Range/Units White Blood Count 16.1 H 4.8-10.8 K/uL Red Blood Count 3.62 L 4.50-6.20 MIL/uL Hemoglobin 11.9 L 14.0-18.0 g/dL Hematocrit 37.3 L 42-54 % Mean Corpuscular Volume 103.0 H 79-99 fL Mean Corpuscular Hemoglobin 32.9 27.0-33.0 pg Mean Corpuscular Hemoglobin Concent 31.9 L 32.0-36.0 g/dL Red Cell Distribution Width 16.7 H 11.0-15.5 % Platelet Count 250 130-400 K/uL Mean Platelet Volume 11.1 H 7.5-10.5 fL Nucleated Red Blood Cells 0.0 0.0-0.19 % Sodium Level 143 136-145 mmol/L Potassium Level 4.4 3.5-5.1 mmol/L Chloride Level 106 101-111 mmol/L Carbon Dioxide Level 28 21-32 mmol/L Blood Urea Nitrogen 29 H 7-18 mg/dL Creatinine 1.2 0.5-1.3 mg/dL Glomerular Filtration Rate Calc 66 >90 mL/min Random Glucose 120 H 70-105 mg/dL Total Calcium 8.7 8.5-10.1 mg/dL Vancomycin Level Trough 11.3 10.0-20.0 UG/ML Current Medications Medications (Trade) Dose Ordered Sig/Antonio Route PRN Reason Start Time Stop Time Status Last Admin Dose Admin Acetaminophen (TYLenol 325MG TAB) 650 mg Q4H PRN PO TEMPERATURE GREATER THAN 101.5 02/19/25 16:00 03/21/25 15:59 Acetaminophen (TYLenol 325MG TAB) 650 mg Q6H PRN PO MILD PAIN (1-3) 02/19/25 16:00 03/21/25 15:59 Acetaminophen/ Codeine Phosphate (TYLenol-coDEINE TAB) 2 tab Q4H PRN PO MODERATE PAIN (4-6) 02/20/25 11:30 03/22/25 11:29 02/28/25 12:04 2 TAB Allopurinol (ZYLOprim 300MG) 300 mg DAILY PO 02/22/25 09:00 03/24/25 08:59 02/28/25 08:59 300 MG Aspirin (Aspirin 81mg Chew Tab) 81 mg DAILY PO 02/21/25 09:00 03/23/25 08:59 02/28/25 08:59 81 MG Atorvastatin Calcium (LIPItor 40MG) 40 mg HS PO 02/20/25 21:00 03/22/25 20:59 02/27/25 21:29 40 MG Clopidogrel Bisulfate (plaVIX 75MG) 75 mg DAILY PO 02/21/25 09:00 03/23/25 08:59 02/28/25 09:00 75 MG Famotidine (Pepcid 20mg Tab) 20 mg BID PO 02/20/25 21:00 03/22/25 20:59 02/28/25 08:59 20 MG Fentanyl (DURAgesic 25 MCG/HR PATCH) 25 mcg Q72H TD 02/28/25 11:00 02/28/25 10:44 DC Gabapentin (NEURontin 300 MG CAP) 300 mg BID PO 02/26/25 21:00 03/28/25 20:59 02/28/25 08:59 300 MG Heparin Sodium (Porcine) (HEParin 5,000 UNIT VIAL) 5,000 unit Q12H SQ 02/20/25 16:00 03/22/25 15:59 02/28/25 04:26 5,000 UNIT Hydromorphone HCl (DiLAUDid 0.5MG INJ) 0.5 mg Q4H PRN IVP SEVERE PAIN (7-10) 02/27/25 16:00 02/28/25 11:31 DC 02/28/25 10:11 0.5 MG Hydromorphone HCl (DiLAUDid 0.5MG INJ) 0.5 mg Q6H PRN IVP SEVERE PAIN (7-10) 02/25/25 12:00 02/27/25 16:03 DC 02/27/25 13:03 0.5 MG Hydromorphone HCl (DiLAUDid 1MG INJ) 1 mg Q4H PRN IVP SEVERE PAIN (7-10) 02/28/25 12:00 03/05/25 11:59 Lactulose (Constulose 20gm/ 30ml Udcup) 20 gm Q6H6 PO 02/28/25 12:00 03/30/25 11:59 Lisinopril (Prinivil 10mg) 10 mg DAILY PO 02/24/25 09:00 02/24/25 08:51 DC 02/24/25 08:39 10 MG Lisinopril (Prinivil 20mg) 20 mg DAILY PO 02/24/25 09:00 03/26/25 08:59 02/28/25 08:59 20 MG Methylprednisolone Sodium Succinate (Solu-medROL 40MG) 20 mg DAILY IVP 02/28/25 09:00 03/30/25 08:59 02/28/25 09:00 20 MG Methylprednisolone Sodium Succinate (Solu-medROL 40MG) 30 mg DAILY IVP 02/27/25 09:00 02/27/25 12:51 DC 02/27/25 08:58 30 MG Methylprednisolone Sodium Succinate (Solu-medROL 40MG) 40 mg DAILY IVP 02/20/25 15:00 02/26/25 11:21 DC 02/26/25 09:30 40 MG Morphine Sulfate (morPHINE 4MG SYG) 2 mg Q4H PRN IVP SEVERE PAIN (7-10) 02/19/25 16:00 02/24/25 18:59 DC 02/20/25 13:08 2 MG Ondansetron HCl (zoFRAN 4MG INJ) 4 mg Q6H PRN IVP NAUSEA/VOMITING 02/19/25 16:00 03/21/25 15:59 Piperacillin Sod/ Tazobactam Sod (Zosyn 3.375gm+NS 50ml) 3.375 gm Q8H IVPB 02/19/25 16:00 03/01/25 15:59 02/28/25 09:00 3.375 GM Sodium Chloride 1,000 ml @ 100 mls/hr Q10H IV 02/25/25 18:00 02/25/25 20:59 DC 02/25/25 18:44 100 MLS/HR Sodium Chloride (NS 50ml) 50 ml AD IV 02/19/25 23:00 02/20/25 11:44 DC Vancomycin HCl 250 ml @ 125 mls/hr Q24H IV 02/20/25 17:00 02/27/25 16:41 DC 02/26/25 18:29 125 MLS/HR Vancomycin HCl 250 ml @ 125 mls/hr Q24H IV 02/27/25 20:00 03/09/25 19:59 02/27/25 21:29 125 MLS/HR Vancomycin HCl (Vancomycin Protocol) 1 each AD IV 02/19/25 16:00 03/05/25 15:59 DIAGNOSTICS / RADIOLOGY: [ ] [address] [address] IMAGING REPORT Signed PATIENT: CALEB REINA MR#: [id number] : 1955 SEX: M AGE: 69 LOCATION: 3AH ORDER 1150 STATUS: ADM IN REPORT#: [id number] SERVICE 1145 REASON: R/O Osteomyelitis of left 5th toe ORDERING PHYSICIAN: AMRBOSIO WILLAMS MD PROCEDURE: FT LT WWO - MR FOOT LEFT WWO EXAMINATION: MRI OF THE LEFT FOOT. CLINICAL HISTORY: Suspected left fifth toe osteomyelitis. COMPARISON: None available. TECHNIQUE: Multiplanar, multisequence MR images of the left foot without and with intravenous contrast were obtained. FINDINGS: There is a cutaneous irregularity over the fifth toe with moderate diffuse dorsal and plantar subcutaneous edema. The distal phalanx of the fifth toe demonstrates moderate marrow edema and possible cortical erosion consistent with osteomyelitis. No discrete drainable collection is identified. The intrinsic plantar musculature shows mild to moderate edema. Moderate diffuse dorsal forefoot and midfoot subcutaneous edema. The second and third metatarsal heads are flattened with associated subchondral fractures, indicative of Freiberg disease. Joint spaces are preserved. Visualized extensor and flexor tendons are normal in course and morphology without evidence of tenosynovitis. IMPRESSION: 1. Findings concerning for osteomyelitis of the left fifth toe distal phalanx with moderate subcutaneous edema. 2. The second and third metatarsal heads are flattened with associated subchondral fractures, indicative of Freiberg disease. 3. The intrinsic plantar musculature shows mild to moderate edema. Moderate diffuse dorsal forefoot and midfoot subcutaneous edema. No discrete drainable collection. Dedicated local ultrasound is requested to rule out cellulitis. /Hardy DICTATED BY: BUCKY HINOJOSA Jr., MD DATE: 02/27/251629 ELECTRONICALLY SIGNED BY: BUCKY HINOJOSA Jr., MD DATE: 02/27/251629 ASSESSMENT: Gangrene of the left 5th toe due to possible vascular compromise, POA Sepsis due to possible secondary infection of the gangrene Myelodysplastic syndrome on chemotherapy (immunocompromised state), POA Acute gout flare (less likely given necrosis and trauma history), POA Acute kidney injury, POA Anemia, POA PLAN: Gangrene of the left 5th toe due to possible vascular compromise, POA * He had a severe pain 10 days back with purplish discoloration which progressed to a black eschar like lesion on the left 5th toe. Foot x-ray did not reveal any acute osseous injury. Arterial ultrasound revealed calcified 60-70% stenosis in left mid superficial artery with no flow in right proximal superficial artery. * Consulted cardiology. Patient is started on aspirin 81 mg, clopidogrel 75 mg and atorvastatin 40 mg daily. * Lower limb angiogram done and found to have blockages in multiple arteries and treated with balloon lithotripsy and angioplasty. * Left 5th toe amputation done by Sepsis due to possible secondary infection of the gangrene, POA * Presented with pulse 132, temperature 100.8, CRP 16, procalcitonin 0.95, lactate 2.5, ESR 38. 24 hour blood culture negative * Started on empiric antibiotic vancomycin day 9 and Zosyn day 10 * Consulted ID for the further recommendations. Myelodysplastic syndrome on chemotherapy (immunocompromised state), POA * Consulted Hematology and Oncology Acute gout flare (less likely given necrosis and trauma history), POA * Patient has a history of gout. Uric acid 5.4 * Continue Solu-Medrol 20 mg daily * Continue allopurinol Acute kidney injury, POA * Creatinine 1.3>1.1>1.2>1.1 * We will avoid nephrotoxic drugs and monitor the renal function. * FENA 2.2 Anemia, POA * Hemoglobin 11.0, MCV is 101.3, RDW is 16.2 * Iron is 125, TIBC is 353, % sat is 35.4, ferritin is 706, vitamin B12 is 1053. * We will trend hemoglobin regularly DVT prophylaxis: Heparin 5000 units b.i.d. GI prophylaxis: Famotidine 20 mg b.i.d. ATTESTATION BY PHYSICIAN I have seen and examined the patient. I reviewed the documentation, medical decision making, and treatment plan as noted by the resident provider above. I agree with the findings and plan of care. MAGUI BREWER MD, ADIL SHAH QUADRI MD Feb 28, 2025 13:18
--- NOTE | 2025-02-28 15:02 | NUR ---
Discharge Planning: Pt. offered placement at [facility], as per prompt from Dr. Mancia. Pt. refused. Also refused SNF and [facility]. Stated he'll take whatever he can buy at [facility]. (po abx?) Dr. Mancia made aware.
[2025-02-28 16:00] VITALS: BP 121/77; PULSE 60; RESP 21; TEMP 98.1
[2025-02-28 20:00] VITALS: BP 134/68; PULSE 57; RESP 20; TEMP 97.5; O2SAT 100
--- NOTE | 2025-02-28 20:21 | PN ---
PROGRESS NOTE Date of Service: Feb 28, 2025 Time of Service: 20:13 SUBJECTIVE: Patient is seen status post amputation of left 5th toe doing well at this time 5th complain of pain. REVIEW OF SYSTEMS CONSTITUTIONAL: Positive fevers, denies chills, or fatigue. Pain in the foot especially upon elevation. HEAD/FACE: No signs of trauma. EENT: Denies eye pain, blurred vision, double vision, or light sensitivity. RESPIRATORY: Denies shortness of breath, cough, wheezing CARDIOVASCULAR: Denies chest pain, palpitation, syncope. Foot warm s/p angioplasty GASTROINTESTINAL/ABDOMINAL: Denies abdominal pain, constipation, diarrhea, nausea or vomiting GENITOURINARY: Denies dysuria or hematuria. MUSCULOSKELETAL: Denies joint pain, tenderness, or trauma. INTEGUMENTARY: 5th toe wound status post amputation sutures in place mild edema and erythema. NEUROLOGICAL/PSYCH: Denies anxiety, depression, heat or cold intolerance. PHYSICAL EXAM EYES: Anicteric. Pupils equal and reactive. HENT: No oral thrush seen, moist Oral mucosa NECK: Supple, no JVD or thyromegaly. LUNGS: Good air entry. No rales, no rhonchi. CARDIOVASCULAR: S1, S2 regular. No murmur heard. Foot warm stable. ABDOMEN: Soft, non tender, bowel sounds present, no organomegaly CENTRAL NERVOUS SYSTEM: Awake, alert, oriented x 3. No focal deficits. SKIN: Wound this post patient's 5th toe left mild erythema positive edema LYMPHATICS: No peripheral lymphadenopathy MUSCULOSKELETAL: No joint swelling, erythema or tenderness. EXTREMITIES: Blanching of toes upon elevation rubor upon dependency. BACK: No deformity, no pressure ulcer. GENITOURINARY: No dysuria or hematuria Vital Signs (last 8hr) Date Time Temp Pulse Resp B/P (MAP) Pulse Ox O2 Delivery O2 Flow Rate FiO2 02/28/25 16:00 98.1 60 21 121/77 97 Room Air 21 LABS: Laboratory: Test 02/28/25 04:16 02/27/25 16:03 Range/Units White Blood Count 16.1 H 4.8-10.8 K/uL Red Blood Count 3.62 L 4.50-6.20 MIL/uL Hemoglobin 11.9 L 14.0-18.0 g/dL Hematocrit 37.3 L 42-54 % Mean Corpuscular Volume 103.0 H 79-99 fL Mean Corpuscular Hemoglobin 32.9 27.0-33.0 pg Mean Corpuscular Hemoglobin Concent 31.9 L 32.0-36.0 g/dL Red Cell Distribution Width 16.7 H 11.0-15.5 % Platelet Count 250 130-400 K/uL Mean Platelet Volume 11.1 H 7.5-10.5 fL Nucleated Red Blood Cells 0.0 0.0-0.19 % Sodium Level 143 136-145 mmol/L Potassium Level 4.4 3.5-5.1 mmol/L Chloride Level 106 101-111 mmol/L Carbon Dioxide Level 28 21-32 mmol/L Blood Urea Nitrogen 29 H 7-18 mg/dL Creatinine 1.2 0.5-1.3 mg/dL Glomerular Filtration Rate Calc 66 >90 mL/min Random Glucose 120 H 70-105 mg/dL Total Calcium 8.7 8.5-10.1 mg/dL Vancomycin Level Trough 11.3 10.0-20.0 UG/ML DIAGNOSTICS / RADIOLOGY: [ ] ASSESSMENT: Status post amputation 5th toe gangrene sutures in place stable Peripheral vascular disease improved with the angioplasty. PLAN: Dressing change today continue antibiotics as per Infectious Disease recommendation. [facility]. This is after discharge. Dispensed surgical shoe. Cleanse with Betadine solution applied Xeroform dressing 4x4s and Kerlix every 72 hours. HOA OCONNOR DPM Feb 28, 2025 20:21
[2025-03-01] VITALS (7 sets, daily range): BP systolic 120–150; BP diastolic 51–79; PULSE 57–94; RESP 20–21; TEMP 97.3–99; O2SAT 97–98
[2025-03-01 04:29] LABS: NUCLEATED RED BLOOD CELLS 0.0 % (0.0-0.19); PLATELET COUNT (AUTO) 217 K/uL (130-400); RED BLOOD CELL COUNT(AUTO) 3.93 MIL/uL (4.50-6.20); RED CELL DISTRIBUTION WIDTH 16.6 % (11.0-15.5); WHITE BLOOD COUNT (AUTO) 17.2 K/uL (4.8-10.8)
[2025-03-01 04:51] LABS: CREATININE 1.0 mg/dL (0.5-1.3); GLOMERULAR FILTR. RATE CALC 82.0 mL/min (>90); GLUCOSE,RANDOM 106.0 mg/dL (70-105); SODIUM SERUM 142.0 mmol/L (136-145); UREA NITROGEN, BLOOD 24.0 mg/dL (7-18)
--- NOTE | 2025-03-01 06:52 | HMCIMG ---
EXAMINATION: SOFT TISSUE ULTRASOUND OF THE RIGHT GROIN. CLINICAL HISTORY: To rule out right groin hematoma. COMPARISON: None. TECHNIQUE: Transverse and longitudinal images were obtained in the right groin. FINDINGS: There are no collections or hematoma. The velocity in the common femoral artery is 165 cm/s. The common femoral vein is patent. No pseudoaneurysm. IMPRESSION: No hematoma or pseudoaneurysm in the right groin. /[place]
[2025-03-01 09:48] LABS: LYMPHOCYTES % (MANUAL) 14 % (22-44); MONOCYTES % (MANUAL) 9 % (2-9); MYELOCYTES % 1 % (0-0); SEGMENTED NEUTROPHILS % 76 % (40-70)
[2025-03-01 09:49] LABS: MAN.DIFF COMMENT-IMPRESSION MANUAL DIFFERENTIAL
[2025-03-01 09:50] LABS: PLATELET MORPHOLOGY COMMENT ADEQUATE
--- NOTE | 2025-03-01 15:29 | PN ---
INFECTIOUS DISEASE PROGRESS NOTE Date of Service: Mar 01, 2025 SUBJECTIVE: This 69 year old male patient is being seen today at bedside. He is s/p left 5th toe amputation day #2. No fever or chills. No nausea or vomiting. Patient denies chest pain or shortness of breath. WBC 17.2 noted at this time. Patient remains on vancomycin and zosyn. Wound cultures growing gram negative rods, preliminary pending final. We'll continue currently antibiotics and adjustments will be made if needed. PHYSICAL EXAM EYES: Anicteric. Pupils equal and reactive. HENT: No oral thrush seen, moist Oral mucosa NECK: Supple, no JVD or thyromegaly. LUNGS: Good air entry. No rales, no rhonchi. CARDIOVASCULAR: S1, S2 regular. No murmur heard. ABDOMEN: Soft, non tender, bowel sounds present, no organomegaly CENTRAL NERVOUS SYSTEM: Awake, alert, oriented x 3. SKIN: No rashes, no swelling. Left lower extremity swelling and cellulitis. LYMPHATICS: No peripheral lymphadenopathy MUSCULOSKELETAL: No joint swelling, erythema or tenderness. EXTREMITIES: No cyanosis or clubbing. 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 BACK: No deformity, no pressure ulcer. GENITOURINARY: No dysuria or hematuria. Vital Sign (Last 12 Hours) 03/01/25 03/01/25 03/01/25 07:59 08:00 12:00 Temp 98.4 99.0 Pulse 94 90 Resp 20 21 B/P (MAP) 139/79 120/51 Pulse Ox 99 98 98 O2 Delivery Room Air Room Air* Room Air O2 Flow Rate 0 FiO2 21 21 21 Intake & Output (last 24hrs) 02/28/25 02/28/25 03/01/25 15:00 23:00 07:00 Intake Total 250.0 ml Balance 250.0 ml LABS: Laboratory: Test 03/01/25 04:17 02/27/25 16:03 Range/Units White Blood Count 17.2 H 4.8-10.8 K/uL Red Blood Count 3.93 L 4.50-6.20 MIL/uL Hemoglobin 12.8 L 14.0-18.0 g/dL Hematocrit 41.2 L 42-54 % Mean Corpuscular Volume 104.8 H 79-99 fL Mean Corpuscular Hemoglobin 32.6 27.0-33.0 pg Mean Corpuscular Hemoglobin Concent 31.1 L 32.0-36.0 g/dL Red Cell Distribution Width 16.6 H 11.0-15.5 % Platelet Count 217 130-400 K/uL Mean Platelet Volume 11.2 H 7.5-10.5 fL Segmented Neutrophils % 76 H 40-70 % Lymphocytes % (Manual) 14 L 22-44 % Monocytes % (Manual) 9 2-9 % Myelocytes % 1 H 0-0 % Nucleated Red Blood Cells 0.0 0.0-0.19 % Differential Comment MANUAL DIFFERENTIAL White Cell Morphology Comment Platelet Morphology Comment ADEQUATE Red Blood Cell Morphology MACROCYTIC 1+ Sodium Level 142 136-145 mmol/L Potassium Level 4.2 3.5-5.1 mmol/L Chloride Level 103 101-111 mmol/L Carbon Dioxide Level 29 21-32 mmol/L Blood Urea Nitrogen 24 H 7-18 mg/dL Creatinine 1.0 0.5-1.3 mg/dL Glomerular Filtration Rate Calc 82 >90 mL/min Random Glucose 106 H 70-105 mg/dL Total Calcium 8.9 8.5-10.1 mg/dL Vancomycin Level Trough 11.3 10.0-20.0 UG/ML DIAGNOSTIC/RADIOLOGY: RUN DATE: 03/01/25 [facility] [address] 1 RUN TIME: [id number] [address], [place] [address] Department of Laboratories [place] # [id number] Insurance Claim Representative: Octaviano Betts DO Specimen Report PATIENT: CALEB MOSHER ACCT: [id number] LOC: 3A U: [id number] AGE/SX: 69/M ROOM: [facility] RE02/19/[address]: CARMEN PETER MD : 1955 BED: 1 DIS: STATUS: ADM IN TLOC: SPEC: [id number] ANDREA: 02/27/25 STATUS: RES REQ: [id number] RECD: 02/27/25 [facility] DR: HOA OCONNOR DPM SOURCE: TOE ENTR: 02/27/[address]: RIC CHAPMAN MD SPDESC: LEFT BIG ARANEDA,MARCELLE PETER,CARMEN GOULD,VIVEK ADHIKARI,FIDE Canales MD ORDERED: GS, WINNIE CULTURE, AEROBIC CULTURE COMMENTS: Has specimen been collected/obtained? Y Specimen Comment: FIFTH TOE LEFT FOOT Has specimen been collected/obtained? Y Specimen Comment: FIFTH TOE LEFT FOOT Has specimen been collected/obtained? Y Specimen Comment: FIFTH TOE LEFT FOOT Has specimen been collected/obtained? Y Specimen Comment: FIFTH TOE LEFT FOOT Has specimen been collected/obtained? Y Specimen Comment: FIFTH TOE LEFT FOOT Has specimen been collected/obtained? Y Specimen Comment: FIFTH TOE LEFT FOOT Has specimen been collected/obtained? Y Specimen Comment: FIFTH TOE LEFT FOOT Has specimen been collected/obtained? Y Specimen Comment: FIFTH TOE LEFT FOOT Has specimen been collected/obtained? Y Specimen Comment: FIFTH TOE LEFT FOOT Has specimen been collected/obtained? Y Specimen Comment: FIFTH TOE LEFT FOOT Has specimen been collected/obtained? Y Specimen Comment: FIFTH TOE LEFT FOOT Has specimen been collected/obtained? Y Specimen Comment: FIFTH TOE LEFT FOOT Has specimen been collected/obtained? Y Specimen Comment: FIFTH TOE LEFT FOOT Has specimen been collected/obtained? Y Specimen Comment: FIFTH TOE LEFT FOOT Has specimen been collected/obtained? Y Specimen Comment: FIFTH TOE LEFT FOOT Has specimen been collected/obtained? Y Specimen Comment: FIFTH TOE LEFT FOOT Has specimen been collected/obtained? Y Specimen Comment: FIFTH TOE LEFT FOOT Has specimen been collected/obtained? Y Specimen Comment: FIFTH TOE LEFT FOOT Has specimen been collected/obtained? Y Specimen Comment: FIFTH TOE LEFT FOOT Has specimen been collected/obtained? Y Specimen Comment: FIFTH TOE LEFT FOOT CONTINUED ON NEXT PAGE RUN DATE: 03/01/25 [facility] PAGE 2 RUN TIME: [address] [address] Department [employer] CLVIJI # [id number] Insurance Claim Representative: Octaviano Betts DO Specimen Report SPEC: [id number] PATIENT: CALEB MOSHER [id number] (Continued) Has specimen been collected/obtained? Y Specimen Comment: FIFTH TOE LEFT FOOT Procedure Result Dhruv Date-Time GRAM STAIN ONLY Final 10/08/25-0942 GRAM STAIN: RARE WBC NO ORGANISMS SEEN ANAEROBIC CULTURE Preliminary 03/01/25 [facility] DESCRIPTION: REPORT 1: NO ANAEROBES AT 24-35 HOURS; STUDIES TO CONTINUE REPORT 2: NO ANAEROBES AT 48-59 HOURS; STUDIES TO CONTINUE Test(s) performed by: [facility] [address] [place] [address] AEROBIC CULTURE Preliminary 03/01/25 [facility] DESCRIPTION: REPORT 1: 1+ GRAM NEGATIVE RODS IDENTIFICATION AND SENSITIVITY TO FOLLOW REPORT 2: SLOW-GROWER; RESULTS PENDING @ [facility] Test Performed at: [facility] [address], [place], [place] Medical Granular Operator: Jw Brumfield D.O. 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 Leukocytosis possible secondary to IV steroids versus reactive. Left lower extremity cellulitis. Myelodysplastic syndrome, on chemotherapy. Underlying myelosuppression. Gout with possible flare-up. PLAN: Continue vancomycin per pharmacy protocol. Continue Zosyn IV. Continue pain management. Continue wound care. Grit Blaster following patient. Continue Solu-Medrol IV, dose decreased. follow with final cultures results. This case was reviewed and discussed with my supervising physician Dr. Chapman and the above assessment and plan was formulated and agreed upon. DERIAN CHAPMAN [facility] Mar 01, 2025 15:29
--- NOTE | 2025-03-01 15:35 | PN ---
[facility] PROGRESS NOTE Date of Service: Mar 01, 2025 Time of Service: 15:25 SUBJECTIVE: Mr. Caleb Reina is a 69-year-old male who presents to the emergency department with complaints of severe pain and necrosis of the left fifth toe. The patient reports that the pain began approximately eight days ago, initially attributing it to a possible gout attack. Several days later, he stubbed his left pinky toe, after which he noticed progressive discoloration and necrosis of the toe, accompanied by worsening pain, which he rates as 30/10 in severity. He has a significant past medical history of myelodysplastic syndrome, diagnosed one year ago, and is currently under the care of Dr. Hubert Simms. He receives monthly chemotherapy but canceled his scheduled treatment today due to his current condition. The patient also reports that he has not refilled two of his regular medications after returning from a recent vacation. Over the past week, he has observed increasing swelling, redness, and inflammation of the left lower extremity. He denies current fever but endorses intermittent chills and subjective low-grade fevers over the past week. He denies any other complaints aside from the severe pain in the affected toe. In the emergency department, an X-ray of the left foot was performed, revealing soft tissue swelling, no acute osseous injury, mild degenerative changes of the first metatarsophalangeal joint, and dorsal tissue swelling. Evaluation noted plantar surface with black necrotic tissue/eschar. Surrounding tissue is red. Periwound is mild erythematous with dry and scaly. He has been referred to the hospitalist service for further evaluation and management. 02/20/2025: He was evaluated at the bedside this morning. He is AAO x3 he complained of pain in his left foot which has slightly improved. The black necrotic eschar was noted on his left 5th toe. Remarkable lab is for ESR 38, CRP 16, procalcitonin 0.94, lactate 2.5, creatinine 1.3. potassium 3.7. Atrial ultrasound revealed 60-70% left mid superficial artery stenosis with no flow in right proximal superficial artery. Cardiology is consulted for the necessary intervention the peripheral artery disease leading to dry gangrene of left 5th toe. ID consulted for possible sepsis. Podiatry consulted for the gangrenous left foot. Rest of the plan as discussed below 02/21/2025: He was evaluated at the bedside this morning. No overnight event. He is AAO x3. He complains of mild left foot pain. He is hemodynamically stable and labs remarkable for CRP 98, creatinine 1.3, procalcitonin 0.94, hemoglobin 11.9. Cardiology want angiogram of the bilateral limb but patient denied the catheterization. We will defer the catheterization for now. He is continued on vancomycin, Zosyn and Solu-Medrol along with aspirin, Plavix and atorvastatin. ID is on board. Podiatry consulted for the gangrene of the left 5th toe. Rest of the plan as discussed below. 02/22/2025: He was evaluated at the bedside this morning. No Overnight event. Who is AAO x3. He complains of mild left foot pain. He is hemodynamically stable and labs remarkable for CRP 54, Cr 1.1, procalcitonin 0.94, Hb 11.6. Patient denies palpitation yesterday but he agreed for today. Cardiology going to scheduling for catheterization today. He is continued on vancomycin, Zosyn and Solu-Medrol along with aspirin, Plavix and atorvastatin. ID is on board. Podiatry consulted for the gangrene of the left 5th toe. Rest of the plan as discussed below. 02/23/2025: He was evaluated at the bedside this morning. No Overnight event. Who is AAO x3. He complains of mild left foot pain. Vital signs are in the normal range. Labs are normal except for Hb 11.5, BUN 26, glucose 122, ferritin 706, vitamin B12 1053. Blood culture showed no growth after 4 days. Today morning blood pre ssure is 151/91 and we started his home medication lisinopril. After the medication his blood pressure is in the normal range. Actually he is supposed to be scheduled for angiography and potential revascularization yesterday by Dr. 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 The doctor who is construction teacher will not perform the procedure. So they are planning to the procedure on Tuesday. After the procedure the Dr. Dean wanted to do amputation of left toe. 02/24/2025: He was evaluated at the bedside this morning. No overnight event. He is AAO x3. He was complaining of mild left lower limb pain more concentrated on 5th digit. The pain typically get worse when he put his leg on the bed and get better when he put it down hanging which seems like limb claudication. He is hemodynamically stable. Labs remarkable for creatinine 1.1 CRP 17. He is continued on vancomycin, Zosyn, aspirin, Plavix, clopidogrel and lisinopril daily. He is pending angiogram of bilateral lower limb tomorrow and possible intervention if required. Podiatry we will follow post catheterization with necessary intervention for left 5th toe gangrene. Podiatry, ID and Cardiology on the board. Rest of the plan as discussed below. 02/25/2025: Patient seen and evaluated bedside in room 332. Discussed with RN, no acute overnight events. Patient is complaining of severe pain, was receiving only Tylenol as needed by mouth. Patient is on NPO, scheduled for peripheral angiogram this afternoon. Started Dilaudid 0.5 mg q.6 hourly p.r.n. for severe pain. Patient's vitals blood pressure 106/46, heart rate 60, respiratory rate 18, saturating 97% at room air. Blood culture shows no growth after5 days. Podiatry, ID and cardiology on board and we will follow up with their rec ommendation. 02/26/2025: Patient seen and evaluated bedside in room 332. Case discussed with RN, no a cute overnight events. Patient underwent peripheral angiogram and found to have multiple blockages in multiple arteries in left lower limb and treatment with balloon angioplasty was performed. Nonhealing ulceration 5th digit of left foot, Podiatry was consulted and we will follow up with the recommendations. 02/27/2025: Patient seen and evaluated bedside in room 332. Discussed with RN, no acute overnight events. Patient underwent amputation of 5th digit of left foot by Dr. Dean this morning. Patient says he is feeling well, vitals look stable. Pending food MRI report. ID and podiatry on board and we will follow up with the recommendations. 02/28/2025: Patient seen and evaluated bedside in room 332. Case discussed with RN, no acute overnight events. Patient is complaining of severe pain at the amputation, increasing hematoma at catheter entry site for peripheral angiogram, We will order ultrasound to rule out aneurysm. We will continue antibiotics and increase the dose of Dilaudid for pain. follow up with Podiatry recommendation. 03/01/2025: Patient seen and evaluated bedside in room 332. Case Discussed with RN, no acute overnight events. Patient says he is feeling less pain, podiatry has been cleared for discharge with antibiotics recommended by ID. Anaerobic culture of specimen revealed 1+ Gram-negative rods, final report pending. Ultrasound of right inguinal region revealed no hematoma or pseudoaneurysm. We will get ID recommendations for antibiotics and discharge the patient. REVIEW OF SYSTEMS CONSTITUTIONAL: Denies fevers, chills, or night sweats. No unintentional weight loss reported. NEUROLOGICAL: Denies headache, amaurosis fugax, motor weakness, sensory deficit, vertigo/spinning sensation, gait abnormalities, or tremors. ENT: No hearing loss, otalgia, otorrhea, rhinitis, rhinorrhea, hoarseness, or sore throat. CARDIOVASCULAR: Denies any exertional angina, dyspnea on exertion, orthopnea, paroxysmal nocturnal dyspnea, palpitations, life-threatening arrhythmias, claudication. PULMONARY: Denies any shortness of breath, cough, phlegm/sputum, hemoptysis, pleuritic chest pain. SLEEP: Denies morning headaches, daytime somnolence or napping. Denies difficulty falling asleep, staying asleep, waking from sleep. Denies knowledge of snoring. GASTROINTESTINAL: Denies any type of dysphagia to either liquids or solids. Denies nausea, vomiting, pyrosis, early satiety, abdominal pain, diarrhea, constipation, or changes in stool consistency or caliber. Denies coffee-ground emesis, hematemesis, hematochezia, or melanotic stools. GENITOURINARY: Denies frequency, urgency, nocturia, hematuria or incontinence (Storage/Irritative symptoms.) Low urinary stream, straining to void, urinary intermittency or hesitancy, splitting of the voiding stream, terminal dribbling. ENDOCRINOLOGIC: Denies polyuria, polydipsia, polyphagia or heat/cold intolerances. HEMATOLOGIC: Denies thrombophilia/previous clots, or coagulopathy/bleeding disorders. ONCOLOGIC: Denies personal history of malignancy. DERMATOLOGIC: Denies rashes or pruritus. PSYCHIATRIC: Denies any suicidal or homicidal ideation. Denies hallucinations. PHYSICAL EXAM GENERAL APPEARANCE: The patient is awake, alert, and oriented, in no acute cardiopulmonary distress. NEUROLOGICAL: Cranial nerves II-XII grossly intact. Motor is 5/5 in bilateral upper and lower extremities proximal to distal. No sensory deficits. HEENT: Face is symmetric. NECK: Supple. No JVD. No thyromegaly. CHEST: Normal chest expansion. No Telemetry. LUNGS: Absence of any rales, rhonchi or any wheezing. CARDIOVASCULAR: Regular. S1 and S2 normal. No appreciable rubs, murmurs or gallops. ABDOMEN: Soft, nontender, and nondistended. There is no rebound, voluntary guarding, or rigidity. : Deferred. No Swanson. EXTREMITIES: amputation left 5th toe-done SKIN: No skin breakdown. Vital Signs (last 8hr) Date Time Temp Pulse Resp B/P (MAP) Pulse Ox O2 Delivery O2 Flow Rate FiO2 03/01/25 12:00 99.0 90 21 120/51 98 Room Air 21 03/01/25 08:00 98 Room Air* 0 21 03/01/25 07:59 98.4 94 20 139/79 99 Room Air 21 LABS: Laboratory: Test 03/01/25 04:17 02/27/25 16:03 Range/Units White Blood Count 17.2 H 4.8-10.8 K/uL Red Blood Count 3.93 L 4.50-6.20 MIL/uL Hemoglobin 12.8 L 14.0-18.0 g/dL Hematocrit 41.2 L 42-54 % Mean Corpuscular Volume 104.8 H 79-99 fL Mean Corpuscular Hemoglobin 32.6 27.0-33.0 pg Mean Corpuscular Hemoglobin Concent 31.1 L 32.0-36.0 g/dL Red Cell Distribution Width 16.6 H 11.0-15.5 % Platelet Count 217 130-400 K/uL Mean Platelet Volume 11.2 H 7.5-10.5 fL Segmented Neutrophils % 76 H 40-70 % Lymphocytes % (Manual) 14 L 22-44 % Monocytes % (Manual) 9 2-9 % Myelocytes % 1 H 0-0 % Nucleated Red Blood Cells 0.0 0.0-0.19 % Differential Comment MANUAL DIFFERENTIAL White Cell Morphology Comment Platelet Morphology Comment ADEQUATE Red Blood Cell Morphology MACROCYTIC 1+ Sodium Level 142 136-145 mmol/L Potassium Level 4.2 3.5-5.1 mmol/L Chloride Level 103 101-111 mmol/L Carbon Dioxide Level 29 21-32 mmol/L Blood Urea Nitrogen 24 H 7-18 mg/dL Creatinine 1.0 0.5-1.3 mg/dL Glomerular Filtration Rate Calc 82 >90 mL/min Random Glucose 106 H 70-105 mg/dL Total Calcium 8.9 8.5-10.1 mg/dL Vancomycin Level Trough 11.3 10.0-20.0 UG/ML Current Medications Medications (Trade) Dose Ordered Sig/Antonio Route PRN Reason Start Time Stop Time Status Last Admin Dose Admin Acetaminophen (TYLenol 325MG TAB) 650 mg Q4H PRN PO TEMPERATURE GREATER THAN 101.5 02/19/25 16:00 03/21/25 15:59 Acetaminophen (TYLenol 325MG TAB) 650 mg Q6H PRN PO MILD PAIN (1-3) 02/19/25 16:00 03/21/25 15:59 Acetaminophen/ Codeine Phosphate (TYLenol-coDEINE TAB) 2 tab Q4H PRN PO MODERATE PAIN (4-6) 02/20/25 11:30 03/22/25 11:29 03/01/25 08:19 2 TAB Allopurinol (ZYLOprim 300MG) 300 mg DAILY PO 02/22/25 09:00 03/24/25 08:59 03/01/25 08:21 300 MG Aspirin (Aspirin 81mg Chew Tab) 81 mg DAILY PO 02/21/25 09:00 03/23/25 08:59 03/01/25 08:20 81 MG Atorvastatin Calcium (LIPItor 40MG) 40 mg HS PO 02/20/25 21:00 03/22/25 20:59 02/28/25 20:33 40 MG Clopidogrel Bisulfate (plaVIX 75MG) 75 mg DAILY PO 02/21/25 09:00 03/23/25 08:59 03/01/25 08:20 75 MG Famotidine (Pepcid 20mg Tab) 20 mg BID PO 02/20/25 21:00 03/22/25 20:59 03/01/25 08:19 20 MG Fentanyl (DURAgesic 25 MCG/HR PATCH) 25 mcg Q72H TD 02/28/25 11:00 02/28/25 10:44 DC Gabapentin (NEURontin 300 MG CAP) 300 mg BID PO 02/26/25 21:00 03/28/25 20:59 03/01/25 08:20 300 MG Heparin Sodium (Porcine) (HEParin 5,000 UNIT VIAL) 5,000 unit Q12H SQ 02/20/25 16:00 03/22/25 15:59 03/01/25 05:21 5,000 UNIT Hydromorphone HCl (DiLAUDid 0.5MG INJ) 0.5 mg Q4H PRN IVP SEVERE PAIN (7-10) 02/27/25 16:00 02/28/25 11:31 DC 02/28/25 10:11 0.5 MG Hydromorphone HCl (DiLAUDid 0.5MG INJ) 0.5 mg Q6H PRN IVP SEVERE PAIN (7-10) 02/25/25 12:00 02/27/25 16:03 DC 02/27/25 13:03 0.5 MG Hydromorphone HCl (DiLAUDid 1MG INJ) 1 mg Q4H PRN IVP SEVERE PAIN (7-10) 02/28/25 12:00 03/05/25 11:59 03/01/25 05:13 1 MG Lactulose (Constulose 20gm/ 30ml Udcup) 20 gm Q6H6 PO 02/28/25 12:00 03/30/25 11:59 Lisinopril (Prinivil 10mg) 10 mg DAILY PO 02/24/25 09:00 02/24/25 08:51 DC 02/24/25 08:39 10 MG Lisinopril (Prinivil 20mg) 20 mg DAILY PO 02/24/25 09:00 03/26/25 08:59 03/01/25 08:20 20 MG Methylprednisolone Sodium Succinate (Solu-medROL 40MG) 10 mg DAILY IVP 03/04/25 09:00 04/03/25 08:59 Methylprednisolone Sodium Succinate (Solu-medROL 40MG) 20 mg DAILY IVP 02/28/25 09:00 03/04/25 07:59 03/01/25 08:21 20 MG Methylprednisolone Sodium Succinate (Solu-medROL 40MG) 30 mg DAILY IVP 02/27/25 09:00 02/27/25 12:51 DC 02/27/25 08:58 30 MG Methylprednisolone Sodium Succinate (Solu-medROL 40MG) 40 mg DAILY IVP 02/20/25 15:00 02/26/25 11:21 DC 02/26/25 09:30 40 MG Morphine Sulfate (morPHINE 4MG SYG) 2 mg Q4H PRN IVP SEVERE PAIN (7-10) 02/19/25 16:00 02/24/25 18:59 DC 02/20/25 13:08 2 MG Ondansetron HCl (zoFRAN 4MG INJ) 4 mg Q6H PRN IVP NAUSEA/VOMITING 02/19/25 16:00 03/21/25 15:59 Piperacillin Sod/ Tazobactam Sod (Zosyn 3.375gm+NS 50ml) 3.375 gm Q8H IVPB 02/19/25 16:00 03/01/25 15:59 03/01/25 08:19 3.375 GM Sodium Chloride 1,000 ml @ 100 mls/hr Q10H IV 02/25/25 18:00 02/25/25 20:59 DC 02/25/25 18:44 100 MLS/HR Sodium Chloride (NS 50ml) 50 ml AD IV 02/19/25 23:00 02/20/25 11:44 DC Vancomycin HCl 250 ml @ 125 mls/hr Q24H IV 02/20/25 17:00 02/27/25 16:41 DC 02/26/25 18:29 125 MLS/HR Vancomycin HCl 250 ml @ 125 mls/hr Q24H IV 02/27/25 20:00 03/09/25 19:59 02/28/25 20:34 125 MLS/HR Vancomycin HCl (Vancomycin Protocol) 1 each AD IV 02/19/25 16:00 03/05/25 15:59 DIAGNOSTICS / RADIOLOGY: [ ] [place] [id number] [address] IMAGING REPORT Signed PATIENT: CALEB REINA MR#: [id number] : 1955 SEX: M AGE: 69 LOCATION: 3AH ORDER 1130 STATUS: ADM IN REPORT#: [id number] SERVICE 1125 REASON: R/o post sheridan angiogram complication at the site of right groin ORDERING PHYSICIAN: TEDDY BURNS MD PROCEDURE: SOFT GROIN - US SOFT TISSUE GROIN EXAMINATION: SOFT TISSUE ULTRASOUND OF THE RIGHT GROIN. CLINICAL HISTORY: To rule out right groin hematoma. COMPARISON: None. TECHNIQUE: Transverse and longitudinal images were obtained in the right groin. FINDINGS: There are no collections or hematoma. The velocity in the common femoral artery is 165 cm/s. The common femoral vein is patent. No pseudoaneurysm. IMPRESSION: No hematoma or pseudoaneurysm in the right groin. /[place] DICTATED BY: CLEM FRIEND MD DATE: 03/01/25750 ELECTRONICALLY SIGNED BY: CLEM FRIEND MD DATE: 03/01/25750 ASSESSMENT: Gangrene of the left 5th toe due to possible vascular compromise, POA Sepsis due to possible secondary infection of the gangrene Myelodysplastic syndrome on chemotherapy (immunocompromised state), POA Acute gout flare (less likely given necrosis and trauma history), POA Acute kidney injury, POA Anemia, POA PLAN: Gangrene of the left 5th toe due to possible vascular compromise, POA * He had a severe pain 10 days back with purplish discoloration which progressed to a black eschar like lesion on the left 5th toe. Foot x-ray did not reveal any acute osseous injury. Arterial ultrasound revealed calcified 60-70% stenosis in left mid superficial artery with no flow in right proximal superficial artery. * Consulted cardiology. Patient is started on aspirin 81 mg, clopidogrel 75 mg and atorvastatin 40 mg daily. * Lower limb angiogram done and found to have blockages in multiple arteries and treated with balloon lithotripsy and angioplasty. * Left 5th toe amputation done by , podiatry cleared for discharge with antibiotics recommended by ID. Sepsis due to possible secondary infection of the gangrene, POA * Presented with pulse 132, temperature 100.8, CRP 16, procalcitonin 0.95, lactate 2.5, ESR 38. 24 hour blood culture negative * Started on empiric antibiotic vancomycin day 10 and Zosyn day 11 * Consulted ID for the further recommendations. Myelodysplastic syndrome on chemotherapy (immunocompromised state), POA * Consulted Hematology and Oncology Acute gout flare (less likely given necrosis and trauma history), POA * Patient has a history of gout. Uric acid 5.4 * Continue Solu-Medrol 20 mg daily * Continue allopurinol Acute kidney injury, POA * Creatinine 1.3>1.1>1.2>1.1 * We will avoid nephrotoxic drugs and monitor the renal function. * FENA 2.2 Anemia, POA * Hemoglobin 11.0, MCV is 101.3, RDW is 16.2 * Iron is 125, TIBC is 353, % sat is 35.4, ferritin is 706, vitamin B12 is 1053. * We will trend hemoglobin regularly DVT prophylaxis: Heparin 5000 units b.i.d. GI prophylaxis: Famotidine 20 mg b.i.d. ATTESTATION BY PHYSICIAN I have seen and examined the patient. I reviewed the documentation, medical decision making, and treatment plan as noted by the resident provider above. I agree with the findings and plan of care. MAGUI BREWER MD, ADIL SHAH QUADRI MD Mar 01, 2025 15:35
[2025-03-02] VITALS (8 sets, daily range): BP systolic 109–134; BP diastolic 61–73; PULSE 71–100; RESP 18–21; TEMP 97.7–98.2; O2SAT 97
--- NOTE | 2025-03-02 00:02 | PN ---
SUBJECTIVE: The patient is feeling better, but continues with significant pain on the left foot after amputation. PHYSICAL EXAMINATION: VITAL SIGNS: Stable, afebrile. GENERAL: The patient is alert and in no acute distress. HEART: Regular rate and rhythm. LUNGS: With diminished breath sounds at both bases, no crackles. ABDOMEN: Soft, nontender. Bowel sounds present, no organomegaly. EXTREMITIES: With mild pitting edema of the left ankle. Left foot covered with a clean, dry dressing. LABORATORY DATA: WBC 17.5, hemoglobin 12.7, platelet count 200. ASSESSMENT: 1. Left fifth toe gangrene, status post amputation. 2. MDS. 3. Leukocytosis. PLAN: The patient remains stable, but continues with persistent leukocytosis. I will review the peripheral blood smear and flow cytometry. Continue to taper down the prednisone gradually. Continue on IV antibiotics. I will follow the cultures, results, and pathology report. TID: [id number] RECEIPT: [id number]
[2025-03-02 04:39] LABS: NUCLEATED RED BLOOD CELLS 0.0 % (0.0-0.19); PLATELET COUNT (AUTO) 181.0 K/uL (130-400); RED BLOOD CELL COUNT(AUTO) 3.74 MIL/uL (4.50-6.20); RED CELL DISTRIBUTION WIDTH 16.7 % (11.0-15.5); WHITE BLOOD COUNT (AUTO) 11.9 K/uL (4.8-10.8)
[2025-03-02 04:53] LABS: CREATININE 1.1 mg/dL (0.5-1.3); GLOMERULAR FILTR. RATE CALC 74.0 mL/min (>90); GLUCOSE,RANDOM 88.0 mg/dL (70-105); SODIUM SERUM 140.0 mmol/L (136-145); UREA NITROGEN, BLOOD 18.0 mg/dL (7-18)
--- NOTE | 2025-03-02 09:45 | NUR ---
PATIENT REPORTING PAIN 10/10 TO LEG AND WHILE I WAS DRAWING UP MEDICATIONS AT THE BEDSIDE PER FACILITY PROCEDURES/POLICIES (HYROMORPHONE AND SOLUMEDROL INTRAVENOUSLY), PATIENT GRABBED MY COMPUTER ON WHEELS AND CAUSED THE MACHINE TO BUMP MY ELBOW, RESULTED IN A NEAR MISS OF ALMOST RECEIVING A NEEDLESTICK WHILE DRAWING UP MEDICATIONS. PATIENT BEGAN RAISING HIS VOICE STATED "I WANT TO SEE MY INFORMATION." I THEN ASKED HIM WHAT SPECIFIC CONCERNS I COULD ADDRESS AND HOW I COULD HELP HIM. HE STATED " I DONT NEED YOUR FUCKING HELP JUST LET ME SEE MY INFORMATION." HE WAS REPEATEDLY ATTEMPTING TO GRAB THE COMPUTER I WAS USING SO THAT HE COULD LOOK AT HIS INFORMATION. I SHUT OFF THE SCREEN AND I STATED THAT PER POLICY AND [employer]AL HIPPA AND OTHER CONFIDENTIALITY LAWS, HE COULD NOT ACCESS INFORMATION VIA A COMPANY COMPUTER DOING SO COULD RESULT IN A BREACH OF CONFIDENTIALITY AND THAT THE PROPER PROTOCOL/POLICIES TO FOLLOW IF HE IS DESIRING COPIES OF HIS MEDICAL RECORDS IS TO COMPLETE A MEDICAL RECORDS REQUEST. I OFFERED TO GIVE HIM THE NUMBER TO REQUEST HIS MEDICAL RECORDS. HE THEN ATTEMPTED TO GRAB MY COMPUTER ON WHEELS ONCE AGAIN AND I PULLED IT AWAY FROM HIM AND QUICKLY EXITED ROOM; PATIENT CONTINUED YELLING AND STATED "GET OUT OF MY FUCKING ROOM YOU BITCH. I WANT A DIFFERENT FUCKING NURSE." I EXITED PATIENT'S ROOM FOR MY OWN SAFETY AND PATIENT REMAINED IN HIS ROOM, AND I NOTIFIED DARON BONILLA RN. OF BEHAVIOR AND REQUEST FOR DIFFERENT NURSE. SHE SPOKE WITH PATIENT AND ADVISED OF FOLLOWING PROPER PROTOCOL. I GAVE REPORT TO ONELIA GARCIA WHO ENDORSED CARE.
--- NOTE | 2025-03-02 12:18 | PN ---
INFECTIOUS DISEASE PROGRESS NOTE Date of Service: Mar 02, 2025 SUBJECTIVE: This is a 69-year-old male patient who was seen and examined at bedside in room 332. The final left 5th toe intraoperative wound culture came back positive for Aeromonas hydrophilica group and Klebsiella oxytoca. No fever, temperature is 97.7 and the WBC has trended down to 11.9. From infectious Disease standpoint patient can be discharged on Vantin 200 mg b.i.d. for 14 days. Prescription was written. PHYSICAL EXAM EYES: Anicteric. Pupils equal and reactive. HENT: No oral thrush seen, moist Oral mucosa NECK: Supple, no JVD or thyromegaly. LUNGS: Good air entry. No rales, no rhonchi. CARDIOVASCULAR: S1, S2 regular. No murmur heard. ABDOMEN: Soft, non tender, bowel sounds present, no organomegaly CENTRAL NERVOUS SYSTEM: Awake, alert, oriented x 3. SKIN: No rashes, no swelling. Left lower extremity swelling and cellulitis. LYMPHATICS: No peripheral lymphadenopathy MUSCULOSKELETAL: No joint swelling, erythema or tenderness. EXTREMITIES: No cyanosis or clubbing. 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 BACK: No deformity, no pressure ulcer. GENITOURINARY: No dysuria or hematuria. Vital Sign (Last 12 Hours) 03/02/25 03/02/25 03/02/25 03/02/25 04:00 07:56 08:00 12:00 Temp 97.9 97.7 98.1 Pulse 72 77 100 Resp 18 20 21 B/P (MAP) 129/62 134/62 109/61 Pulse Ox 94 97 100 100 O2 Delivery Room Air Room Air* Room Air O2 Flow Rate 0 FiO2 21 21 21 Intake & Output (last 24hrs) 03/01/25 03/01/25 03/02/25 15:00 23:00 07:00 Intake Total 120 ml Balance 120 ml LABS: Laboratory: Test 03/02/25 04:28 03/01/25 19:34 03/01/25 04:17 Range/Units White Blood Count 11.9 H 4.8-10.8 K/uL Red Blood Count 3.74 L 4.50-6.20 MIL/uL Hemoglobin 12.5 L 14.0-18.0 g/dL Hematocrit 38.3 L 42-54 % Mean Corpuscular Volume 102.4 H 79-99 fL Mean Corpuscular Hemoglobin 33.4 H 27.0-33.0 pg Mean Corpuscular Hemoglobin Concent 32.6 32.0-36.0 g/dL Red Cell Distribution Width 16.7 H 11.0-15.5 % Platelet Count 181 130-400 K/uL Mean Platelet Volume 11.7 H 7.5-10.5 fL Nucleated Red Blood Cells 0.0 0.0-0.19 % Sodium Level 140 136-145 mmol/L Potassium Level 4.1 3.5-5.1 mmol/L Chloride Level 103 101-111 mmol/L Carbon Dioxide Level 25 21-32 mmol/L Blood Urea Nitrogen 18 7-18 mg/dL Creatinine 1.1 0.5-1.3 mg/dL Glomerular Filtration Rate Calc 74 >90 mL/min Random Glucose 88 70-105 mg/dL Lactic Acid Level 2.0 0.8-2.5 mmol/L Total Calcium 9.0 8.5-10.1 mg/dL C-Reactive Protein, Quantitative 75.00 H 0.5-3.0 mg/L Procalcitonin < 0.05 L 0.05-0.5 ng/mL Whole Blood Glucose 128 H 70-110 MG/DL Segmented Neutrophils % 76 H 40-70 % Lymphocytes % (Manual) 14 L 22-44 % Monocytes % (Manual) 9 2-9 % Myelocytes % 1 H 0-0 % Differential Comment MANUAL DIFFERENTIAL White Cell Morphology Comment Platelet Morphology Comment ADEQUATE Red Blood Cell Morphology MACROCYTIC 1+ DIAGNOSTIC/RADIOLOGY: RUN DATE: 03/01/25 [facility] PAGE 1 RUN TIME: [address] [address], [place] [address] Department of Laboratories [facility] # [id number] Receiving Weigher: Octaviano Betts DO Specimen Report ------- ----- PATIENT: CALEB MOSHER ACCT: [id number] LOC: 3A U: [id number] AGE/SX: 69/M ROOM: 332 RE02/19/[address]: CARMEN PETER MD : 1955 BED: 1 DIS: STATUS: ADM IN TLOC: SPEC: [id number] ANDREA: 02/27/25 STATUS: RES REQ: [id number] RECD: 02/27/[address]: HOA OCONNOR DPM SOURCE: TOE ENTR: 02/27/[address]: RIC CHAPMAN MD SPDESC: LEFT BIG LUCIOA,CARMEN CHEATHAM MD, MD,VIVEK ADHIKARI,FIDE Canales MD ORDERED: GS, WINNIE CULTURE, AEROBIC CULTURE COMMENTS: Has specimen been collected/obtained? Y Specimen Comment: FIFTH TOE LEFT FOOT Has specimen been collected/obtained? Y Specimen Comment: FIFTH TOE LEFT FOOT Has specimen been collected/obtained? Y Specimen Comment: FIFTH TOE LEFT FOOT Has specimen been collected/obtained? Y Specimen Comment: FIFTH TOE LEFT FOOT Has specimen been collected/obtained? Y Specimen Comment: FIFTH TOE LEFT FOOT Has specimen been collected/obtained? Y Specimen Comment: FIFTH TOE LEFT FOOT Has specimen been collected/obtained? Y Specimen Comment: FIFTH TOE LEFT FOOT Has specimen been collected/obtained? Y Specimen Comment: FIFTH TOE LEFT FOOT Has specimen been collected/obtained? Y Specimen Comment: FIFTH TOE LEFT FOOT Has specimen been collected/obtained? Y Specimen Comment: FIFTH TOE LEFT FOOT Has specimen been collected/obtained? Y Specimen Comment: FIFTH TOE LEFT FOOT Has specimen been collected/obtained? Y Specimen Comment: FIFTH TOE LEFT FOOT Has specimen been collected/obtained? Y Specimen Comment: FIFTH TOE LEFT FOOT Has specimen been collected/obtained? Y Specimen Comment: FIFTH TOE LEFT FOOT Has specimen been collected/obtained? Y Specimen Comment: FIFTH TOE LEFT FOOT Has specimen been collected/obtained? Y Specimen Comment: FIFTH TOE LEFT FOOT Has specimen been collected/obtained? Y Specimen Comment: FIFTH TOE LEFT FOOT Has specimen been collected/obtained? Y Specimen Comment: FIFTH TOE LEFT FOOT Has specimen been collected/obtained? Y Specimen Comment: FIFTH TOE LEFT FOOT Has specimen been collected/obtained? Y Specimen Comment: FIFTH TOE LEFT FOOT CONTINUED ON NEXT PAGE RUN DATE: 03/01/25 [facility] PAGE 2 RUN TIME: [id number] [address] Department of Laboratories CLIA # [id number] Receiving Weigher: Octaviano Betts DO Specimen Report SPEC: [id number] PATIENT: CALEB MOSHER [id number] (Continued) Has specimen been collected/obtained? Y Specimen Comment: FIFTH TOE LEFT FOOT Procedure Result Dhruv Date-Time GRAM STAIN ONLY Final 02/27/25 GRAM STAIN: RARE WBC NO ORGANISMS SEEN ANAEROBIC CULTURE Preliminary 03/01/25 [facility] DESCRIPTION: REPORT 1: NO ANAEROBES AT 24-35 HOURS; STUDIES TO CONTINUE REPORT 2: NO ANAEROBES AT 48-59 HOURS; STUDIES TO CONTINUE Test(s) performed by: [facility] [address] [place] [address] AEROBIC CULTURE Preliminary 03/01/25 [facility] DESCRIPTION: REPORT 1: 1+ GRAM NEGATIVE RODS IDENTIFICATION AND SENSITIVITY TO FOLLOW REPORT 2: SLOW-GROWER; RESULTS PENDING @ [facility] Test Performed at: [facility] [address], [place], [place] Medical Flower Shop Manager: Jw Brumfield D.O. 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 Left lower extremity cellulitis. Leukocytosis possible secondary to IV steroids versus reactive, improved. Myelodysplastic syndrome, on chemotherapy. Underlying myelosuppression. Gout with possible flare-up. PLAN: From infectious Disease standpoint patient can be discharged on Vantin 200 mg b.i.d. for 14 days. Prescription was written. This case was reviewed and discussed with my supervising physician Dr. Chapman and the above assessment and plan was formulated and agreed upon. ATTESTATION BY PHYSICIAN I have seen and examined the patient. I reviewed the documentation, medical decision making, and treatment plan as noted by the mid-level provider above. I agree with the findings and plan of care. RIC CHAPMAN MD, MIRTA [facility] Mar 02, 2025 12:17
--- NOTE | 2025-03-02 15:49 | PN ---
[facility] PROGRESS NOTE Date of Service: Mar 02, 2025 Time of Service: 15:49 SUBJECTIVE: Mr. Murray Reina is a 69-year-old male who presents to the emergency department with complaints of severe pain and necrosis of the left fifth toe. The patient reports that the pain began approximately eight days ago, initially attributing it to a possible gout attack. Several days later, he stubbed his left pinky toe, after which he noticed progressive discoloration and necrosis of the toe, accompanied by worsening pain, which he rates as 30/10 in severity. He has a significant past medical history of myelodysplastic syndrome, diagnosed one year ago, and is currently under the care of Dr. Hubert Simms. He receives monthly chemotherapy but canceled his scheduled treatment today due to his current condition. The patient also reports that he has not refilled two of his regular medications after returning from a recent vacation. Over the past week, he has observed increasing swelling, redness, and inflammation of the left lower extremity. He denies current fever but endorses intermittent chills and subjective low-grade fevers over the past week. He denies any other complaints aside from the severe pain in the affected toe. In the emergency department, an X-ray of the left foot was performed, revealing soft tissue swelling, no acute osseous injury, mild degenerative changes of the first metatarsophalangeal joint, and dorsal tissue swelling. Evaluation noted plantar surface with black necrotic tissue/eschar. Surrounding tissue is red. Periwound is mild erythematous with dry and scaly. He has been referred to the hospitalist service for further evaluation and management. 02/20/2025: He was evaluated at the bedside this morning. He is AAO x3 he complained of pain in his left foot which has slightly improved. The black necrotic eschar was noted on his left 5th toe. Remarkable lab is for ESR 38, CRP 16, procalcitonin 0.94, lactate 2.5, creatinine 1.3. potassium 3.7. Atrial ultrasound revealed 60-70% left mid superficial artery stenosis with no flow in right proximal superficial artery. Cardiology is consulted for the necessary intervention the peripheral artery disease leading to dry gangrene of left 5th toe. ID consulted for possible sepsis. Podiatry consulted for the gangrenous left foot. Rest of the plan as discussed below 02/21/2025: He was evaluated at the bedside this morning. No overnight event. He is AAO x3. He complains of mild left foot pain. He is hemodynamically stable and labs remarkable for CRP 98, creatinine 1.3, procalcitonin 0.94, hemoglobin 11.9. Cardiology want angiogram of the bilateral limb but patient denied the catheterization. We will defer the catheterization for now. He is continued on vancomycin, Zosyn and Solu-Medrol along with aspirin, Plavix and atorvastatin. ID is on board. Podiatry consulted for the gangrene of the left 5th toe. Rest of the plan as discussed below. 02/22/2025: He was evaluated at the bedside this morning. No Overnight event. Who is AAO x3. He complains of mild left foot pain. He is hemodynamically stable and labs remarkable for CRP 54, Cr 1.1, procalcitonin 0.94, Hb 11.6. Patient denies palpitation yesterday but he agreed for today. Cardiology going to scheduling for catheterization today. He is continued on vancomycin, Zosyn and Solu-Medrol along with aspirin, Plavix and atorvastatin. ID is on board. Podiatry consulted for the gangrene of the left 5th toe. Rest of the plan as discussed below. 02/23/2025: He was evaluated at the bedside this morning. No Overnight event. Who is AAO x3. He complains of mild left foot pain. Vital signs are in the normal range. Labs are normal except for Hb 11.5, BUN 26, glucose 122, ferritin 706, vitamin B12 1053. Blood culture showed no growth after 4 days. Today morning blood pre ssure is 151/91 and we started his home medication lisinopril. After the medication his blood pressure is in the normal range. Actually he is supposed to be scheduled for angiography and potential revascularization yesterday by Dr. 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 The doctor who is full fashioned garment knitter will not perform the procedure. So they are planning to the procedure on Tuesday. After the procedure the Dr. Dean wanted to do amputation of left toe. 02/24/2025: He was evaluated at the bedside this morning. No overnight event. He is AAO x3. He was complaining of mild left lower limb pain more concentrated on 5th digit. The pain typically get worse when he put his leg on the bed and get better when he put it down hanging which seems like limb claudication. He is hemodynamically stable. Labs remarkable for creatinine 1.1 CRP 17. He is continued on vancomycin, Zosyn, aspirin, Plavix, clopidogrel and lisinopril daily. He is pending angiogram of bilateral lower limb tomorrow and possible intervention if required. Podiatry we will follow post catheterization with necessary intervention for left 5th toe gangrene. Podiatry, ID and Cardiology on the board. Rest of the plan as discussed below. 02/25/2025: Patient seen and evaluated bedside in room 332. Discussed with RN, no acute overnight events. Patient is complaining of severe pain, was receiving only Tylenol as needed by mouth. Patient is on NPO, scheduled for peripheral angiogram this afternoon. Started Dilaudid 0.5 mg q.6 hourly p.r.n. for severe pain. Patient's vitals blood pressure 106/46, heart rate 60, respiratory rate 18, saturating 97% at room air. Blood culture shows no growth after5 days. Podiatry, ID and cardiology on board and we will follow up with their rec ommendation. 02/26/2025: Patient seen and evaluated bedside in room 332. Case discussed with RN, no a cute overnight events. Patient underwent peripheral angiogram and found to have multiple blockages in multiple arteries in left lower limb and treatment with balloon angioplasty was performed. Nonhealing ulceration 5th digit of left foot, Podiatry was consulted and we will follow up with the recommendations. 02/27/2025: Patient seen and evaluated bedside in room 332. Discussed with RN, no acute overnight events. Patient underwent amputation of 5th digit of left foot by Dr. Dean this morning. Patient says he is feeling well, vitals look stable. Pending food MRI report. ID and podiatry on board and we will follow up with the recommendations. 02/28/2025: Patient seen and evaluated bedside in room 332. Case discussed with RN, no acute overnight events. Patient is complaining of severe pain at the amputation, increasing hematoma at catheter entry site for peripheral angiogram, We will order ultrasound to rule out aneurysm. We will continue antibiotics and increase the dose of Dilaudid for pain. follow up with Podiatry recommendation. 03/01/2025: Patient seen and evaluated bedside in room 332. Case Discussed with RN, no acute overnight events. Patient says he is feeling less pain, podiatry has been cleared for discharge with antibiotics recommended by ID. Anaerobic culture of specimen revealed 1+ Gram-negative rods, final report pending. Ultrasound of right inguinal region revealed no hematoma or pseudoaneurysm. We will get ID recommendations for antibiotics and discharge the patient. 03/02/2025 Patient is seen and examined at the bedside. No acute events last night. He is hemodynamically stable. He reports experiencing severe intermittent bouts of pain in the left foot near the amputation site. He is unable to clearly describe whether the pain has improved or remain constant over the past few days. He is currently receiving morphine 1 mg IV and Tylenol with codeine tablets q.4h p.r.n., gabapentin 300 mg b.i.d. for pain. Labs shows WBC improved from 17.2- 11.9, hemoglobin 12.5, BMP within normal limits, CRP increased from 9-75 and procalcitonin less than 0.05. Left 5th toe wound culture grew Aeromonas Hydrofera and Klebsiella oxytoca. Flow cytometry results are pending. He is cleared from ID standpoint for discharge and was given a prescription of Vantin. We will start scheduled acetaminophen every 6 hours. Possible discharge tomorrow REVIEW OF SYSTEMS CONSTITUTIONAL: Denies fevers, chills, or night sweats. No unintentional weight loss reported. NEUROLOGICAL: Denies headache, amaurosis fugax, motor weakness, sensory deficit, vertigo/spinning sensation, gait abnormalities, or tremors. ENT: No hearing loss, otalgia, otorrhea, rhinitis, rhinorrhea, hoarseness, or sore throat. CARDIOVASCULAR: Denies any exertional angina, dyspnea on exertion, orthopnea, paroxysmal nocturnal dyspnea, palpitations, life-threatening arrhythmias, claudication. PULMONARY: Denies any shortness of breath, cough, phlegm/sputum, hemoptysis, pleuritic chest pain. SLEEP: Denies morning headaches, daytime somnolence or napping. Denies difficulty falling asleep, staying asleep, waking from sleep. Denies knowledge of snoring. GASTROINTESTINAL: Denies any type of dysphagia to either liquids or solids. Denies nausea, vomiting, pyrosis, early satiety, abdominal pain, diarrhea, constipation, or changes in stool consistency or caliber. Denies coffee-ground emesis, hematemesis, hematochezia, or melanotic stools. GENITOURINARY: Denies frequency, urgency, nocturia, hematuria or incontinence (Storage/Irritative symptoms.) Low urinary stream, straining to void, urinary intermittency or hesitancy, splitting of the voiding stream, terminal dribbling. ENDOCRINOLOGIC: Denies polyuria, polydipsia, polyphagia or heat/cold intolerances. HEMATOLOGIC: Denies thrombophilia/previous clots, or coagulopathy/bleeding disorders. ONCOLOGIC: Denies personal history of malignancy. DERMATOLOGIC: Denies rashes or pruritus. PSYCHIATRIC: Denies any suicidal or homicidal ideation. Denies hallucinations. PHYSICAL EXAM GENERAL APPEARANCE: The patient is awake, alert, and oriented, in no acute cardiopulmonary distress. NEUROLOGICAL: Cranial nerves II-XII grossly intact. Motor is 5/5 in bilateral upper and lower extremities proximal to distal. No sensory deficits. HEENT: Face is symmetric. NECK: Supple. No JVD. No thyromegaly. CHEST: Normal chest expansion. No Telemetry. LUNGS: Absence of any rales, rhonchi or any wheezing. CARDIOVASCULAR: Regular. S1 and S2 normal. No appreciable rubs, murmurs or gallops. ABDOMEN: Soft, nontender, and nondistended. There is no rebound, voluntary guarding, or rigidity. : Deferred. No Swanson. EXTREMITIES: amputation left 5th toe-done SKIN: No skin breakdown. Vital Signs (last 8hr) Date Time Temp Pulse Resp B/P (MAP) Pulse Ox O2 Delivery O2 Flow Rate FiO2 03/02/25 12:00 98.1 100 21 109/61 100 21 03/02/25 08:00 97.7 77 20 134/62 100 Room Air 21 03/02/25 07:56 97 Room Air* 0 21 LABS: Laboratory: Test 03/02/25 04:28 03/01/25 19:34 03/01/25 04:17 Range/Units White Blood Count 11.9 H 4.8-10.8 K/uL Red Blood Count 3.74 L 4.50-6.20 MIL/uL Hemoglobin 12.5 L 14.0-18.0 g/dL Hematocrit 38.3 L 42-54 % Mean Corpuscular Volume 102.4 H 79-99 fL Mean Corpuscular Hemoglobin 33.4 H 27.0-33.0 pg Mean Corpuscular Hemoglobin Concent 32.6 32.0-36.0 g/dL Red Cell Distribution Width 16.7 H 11.0-15.5 % Platelet Count 181 130-400 K/uL Mean Platelet Volume 11.7 H 7.5-10.5 fL Nucleated Red Blood Cells 0.0 0.0-0.19 % Sodium Level 140 136-145 mmol/L Potassium Level 4.1 3.5-5.1 mmol/L Chloride Level 103 101-111 mmol/L Carbon Dioxide Level 25 21-32 mmol/L Blood Urea Nitrogen 18 7-18 mg/dL Creatinine 1.1 0.5-1.3 mg/dL Glomerular Filtration Rate Calc 74 >90 mL/min Random Glucose 88 70-105 mg/dL Lactic Acid Level 2.0 0.8-2.5 mmol/L Total Calcium 9.0 8.5-10.1 mg/dL C-Reactive Protein, Quantitative 75.00 H 0.5-3.0 mg/L Procalcitonin < 0.05 L 0.05-0.5 ng/mL Whole Blood Glucose 128 H 70-110 MG/DL Segmented Neutrophils % 76 H 40-70 % Lymphocytes % (Manual) 14 L 22-44 % Monocytes % (Manual) 9 2-9 % Myelocytes % 1 H 0-0 % Differential Comment MANUAL DIFFERENTIAL White Cell Morphology Comment Platelet Morphology Comment ADEQUATE Red Blood Cell Morphology MACROCYTIC 1+ Current Medications Medications (Trade) Dose Ordered Sig/Antonio Route PRN Reason Start Time Stop Time Status Last Admin Dose Admin Acetaminophen (TYLenol 325MG TAB) 650 mg Q4H PRN PO TEMPERATURE GREATER THAN 101.5 02/19/25 16:00 03/21/25 15:59 Acetaminophen (TYLenol 325MG TAB) 650 mg Q6H PRN PO MILD PAIN (1-3) 02/19/25 16:00 03/21/25 15:59 Acetaminophen/ Codeine Phosphate (TYLenol-coDEINE TAB) 2 tab Q4H PRN PO MODERATE PAIN (4-6) 02/20/25 11:30 03/22/25 11:29 03/02/25 13:06 2 TAB Allopurinol (ZYLOprim 300MG) 300 mg DAILY PO 02/22/25 09:00 03/24/25 08:59 03/01/25 08:21 300 MG Aspirin (Aspirin 81mg Chew Tab) 81 mg DAILY PO 02/21/25 09:00 03/23/25 08:59 03/01/25 08:20 81 MG Atorvastatin Calcium (LIPItor 40MG) 40 mg HS PO 02/20/25 21:00 03/22/25 20:59 03/01/25 19:59 40 MG Clopidogrel Bisulfate (plaVIX 75MG) 75 mg DAILY PO 02/21/25 09:00 03/23/25 08:59 03/01/25 08:20 75 MG Famotidine (Pepcid 20mg Tab) 20 mg BID PO 02/20/25 21:00 03/22/25 20:59 03/01/25 19:59 20 MG Fentanyl (DURAgesic 25 MCG/HR PATCH) 25 mcg Q72H TD 02/28/25 11:00 02/28/25 10:44 DC Gabapentin (NEURontin 300 MG CAP) 300 mg BID PO 02/26/25 21:00 03/28/25 20:59 03/01/25 19:59 300 MG Heparin Sodium (Porcine) (HEParin 5,000 UNIT VIAL) 5,000 unit BID SQ 03/02/25 21:00 03/22/25 15:59 Heparin Sodium (Porcine) (HEParin 5,000 UNIT VIAL) 5,000 unit Q12H SQ 02/20/25 16:00 03/02/25 15:17 DC 03/02/25 04:08 5,000 UNIT Hydromorphone HCl (DiLAUDid 0.5MG INJ) 0.5 mg Q4H PRN IVP SEVERE PAIN (7-10) 02/27/25 16:00 02/28/25 11:31 DC 02/28/25 10:11 0.5 MG Hydromorphone HCl (DiLAUDid 0.5MG INJ) 0.5 mg Q6H PRN IVP SEVERE PAIN (7-10) 02/25/25 12:00 02/27/25 16:03 DC 02/27/25 13:03 0.5 MG Hydromorphone HCl (DiLAUDid 1MG INJ) 1 mg Q4H PRN IVP SEVERE PAIN (7-10) 02/28/25 12:00 03/02/25 15:17 DC 03/02/25 10:17 1 MG Lactulose (Constulose 20gm/ 30ml Udcup) 20 gm Q6H6 PO 02/28/25 12:00 03/02/25 15:17 DC Lisinopril (Prinivil 10mg) 10 mg DAILY PO 02/24/25 09:00 02/24/25 08:51 DC 02/24/25 08:39 10 MG Lisinopril (Prinivil 20mg) 20 mg DAILY PO 02/24/25 09:00 03/26/25 08:59 03/01/25 08:20 20 MG Methylprednisolone Sodium Succinate (Solu-medROL 40MG) 10 mg DAILY IVP 03/04/25 09:00 04/03/25 08:59 Methylprednisolone Sodium Succinate (Solu-medROL 40MG) 20 mg DAILY IVP 02/28/25 09:00 03/04/25 07:59 03/01/25 08:21 20 MG Methylprednisolone Sodium Succinate (Solu-medROL 40MG) 30 mg DAILY IVP 02/27/25 09:00 02/27/25 12:51 DC 02/27/25 08:58 30 MG Methylprednisolone Sodium Succinate (Solu-medROL 40MG) 40 mg DAILY IVP 02/20/25 15:00 02/26/25 11:21 DC 02/26/25 09:30 40 MG Morphine Sulfate (morPHINE 4MG SYG) 2 mg Q4H PRN IVP SEVERE PAIN (7-10) 02/19/25 16:00 02/24/25 18:59 DC 02/20/25 13:08 2 MG Ondansetron HCl (zoFRAN 4MG INJ) 4 mg Q6H PRN IVP NAUSEA/VOMITING 02/19/25 16:00 03/21/25 15:59 Piperacillin Sod/ Tazobactam Sod (Zosyn 3.375gm+NS 50ml) 3.375 gm Q8H IVPB 02/19/25 16:00 03/01/25 15:59 DC 03/01/25 08:19 3.375 GM Sodium Chloride 1,000 ml @ 100 mls/hr Q10H IV 02/25/25 18:00 02/25/25 20:59 DC 02/25/25 18:44 100 MLS/HR Sodium Chloride (NS 50ml) 50 ml AD IV 02/19/25 23:00 02/20/25 11:44 DC Vancomycin HCl 250 ml @ 125 mls/hr Q24H IV 02/20/25 17:00 02/27/25 16:41 DC 02/26/25 18:29 125 MLS/HR Vancomycin HCl 250 ml @ 125 mls/hr Q24H IV 02/27/25 20:00 03/09/25 19:59 03/01/25 19:58 125 MLS/HR Vancomycin HCl (Vancomycin Protocol) 1 each AD IV 02/19/25 16:00 03/05/25 15:59 DIAGNOSTICS / RADIOLOGY: [ ] ASSESSMENT: Gangrene of the left 5th toe due to possible vascular compromise, POA status post amputation Sepsis secondary to infection of the gangrene Myelodysplastic syndrome on chemotherapy (immunocompromised state), POA Acute gout flare (less likely given necrosis and trauma history), POA Acute kidney injury, POA, resolved Anemia, POA Peripheral artery disease, status post balloon lithotripsy and angioplasty PLAN: Gangrene of the left 5th toe due to possible vascular compromise, POA * He had a severe pain 10 days back with purplish discoloration which progressed to a black eschar like lesion on the left 5th toe. Foot x-ray did not reveal any acute osseous injury. Arterial ultrasound revealed calcified 60-70% stenosis in left mid superficial artery with no flow in right proximal superficial artery. * Consulted cardiology. Patient was started on aspirin 81 mg, clopidogrel 75 mg and atorvastatin 40 mg daily. * Lower limb angiogram done and found to have blockages in multiple arteries and treated with balloon lithotripsy and angioplasty. * Left 5th toe amputation done by , podiatry cleared for discharge with antibiotics recommended by ID. Sepsis secondary to infection of the gangrene, POA, resolved * Presented with pulse 132, temperature 100.8, CRP 16, procalcitonin 0.95, lactate 2.5, ESR 38. 24 hour blood culture negative * Continue empiric antibiotic vancomycin day 11 and Zosyn [reached stop date] * Wound cultures resulted in Klebsiella oxytoca, Aeromonas hydrophila * Cleared for discharge from ID standpoint Myelodysplastic syndrome on chemotherapy (immunocompromised state), POA * Consulted Hematology and Oncology * Pending flow cytometry results Acute gout flare (less likely given necrosis and trauma history), POA * Patient has a history of gout. Uric acid 5.4 * Continue Solu-Medrol 20 mg daily * Continue allopurinol Acute kidney injury, POA, resolved * Creatinine 1.1 * We will avoid nephrotoxic drugs and monitor the renal function. * FENA 2.2 Anemia, POA * Hemoglobin 12.5 * Iron is 125, TIBC is 353, % sat is 35.4, ferritin is 706, vitamin B12 is 1053, suggesting anemia of chronic disease * We will trend hemoglobin regularly We will add acetaminophen 650 mg q.6 H scheduled dose, discontinue IV morphine and continue Tylenol codeine medications for breakthrough pain in preparation for possible discharge tomorrow We will monitor his pain levels today, if patient tolerates this regimen and pain remains controlled, we plan to discharge him tomorrow. Patient agreed with the plan DVT prophylaxis: Heparin 5000 units b.i.d. GI prophylaxis: Famotidine 20 mg b.i.d. ATTESTATION BY PHYSICIAN I have seen and examined the patient. I reviewed the documentation, medical decision making, and treatment plan as noted by the resident physician above. I agree with the findings and plan of care. MAGUI BREWER MD, PRIYANKA MD Mar 02, 2025 15:49
[2025-03-02] MEDS ORDERED: VANCOMYCIN 1.5 GM/250 ML BAG 250 ML IV SCH (20:00)
[2025-03-03 03:48] VITALS: BP 138/67; PULSE 76; RESP 18; TEMP 97.9
[2025-03-03 04:35] LABS: NUCLEATED RED BLOOD CELLS 0.0 % (0.0-0.19); PLATELET COUNT (AUTO) 151.0 K/uL (130-400); RED BLOOD CELL COUNT(AUTO) 3.45 MIL/uL (4.50-6.20); RED CELL DISTRIBUTION WIDTH 16.7 % (11.0-15.5); WHITE BLOOD COUNT (AUTO) 11.2 K/uL (4.8-10.8)
[2025-03-03 04:45] LABS: CREATININE 1.1 mg/dL (0.5-1.3); GLOMERULAR FILTR. RATE CALC 74.0 mL/min (>90); GLUCOSE,RANDOM 120.0 mg/dL (70-105); SODIUM SERUM 140.0 mmol/L (136-145); UREA NITROGEN, BLOOD 17.0 mg/dL (7-18)
[2025-03-03 08:00] VITALS: BP 140/71; PULSE 81; RESP 20; TEMP 98.3
[2025-03-03 08:12] VITALS: O2SAT 97
[2025-03-03 12:00] VITALS: BP 132/67; PULSE 87; RESP 21; TEMP 98
[2025-03-03] MEDS ORDERED: ACET-2079 PO (12:13)
[2025-03-03] MEDS ORDERED: GABA-529 PO (12:20)
--- NOTE | 2025-03-03 14:00 | DS ---
Discharge Summary Hospital Course Summary: Mr. Reina, a 69-year-old male with a known history of myelodysplastic syndrome, currently under the care of Dr. Bedoya, presented on February 19, 2025, with severe pain and necrosis of the left fifth toe for 8 days. Initially, the patient attributed the pain to gout. Several days later, after stubbing the left pinky toe, he noted progressive discoloration, necrosis, and worsening pain rated as 30/10. Over the following week, he developed increasing redness, swelling, and inflammation of the left lower extremity. In the Emergency Department, an X-ray of the left foot revealed soft tissue swelling without acute osseous injury, mild degenerative changes at the first metatarsophalangeal joint, and dorsal tissue swelling. On examination, the plantar surface showed black necrotic tissue and eschar with surrounding erythema and dry scaly tissue. The patient was started on intravenous Zosyn and Vancomycin for presumed soft tissue infection and was admitted for further management. He was evaluated by Infectious Disease and his primary oncologist. On February 25, 2025, he underwent a peripheral angiogram, which demonstrated peripheral arterial disease. Recommendations included continuation of Aspirin 81 mg and Clopidogrel 75 mg daily, along with aggressive IV antibiotic therapy and local wound care. Subsequently, on February 26, 2025, the patient underwent a left fifth toe amputation performed by Dr. Dean. The procedure was well tolerated. Postoperatively, he experienced moderate pain, which was managed effectively with Dilaudid. During hospitalization, the patients laboratory values and clinical status gradually improved. He was offered transfer to [facility] for continued wound management and IV antibiotics, but the patient declined and preferred discharge home. He was transitioned to oral antibiotics and discharged on Cefpodoxime (Vantin) 200 mg twice daily for 14 days. He was counseled extensively regarding wound care, antibiotic adherence, and follow-up with Infectious Disease and his Primary Care Physician. Discharge Medications Cefpodoxime (Vantin) 200 mg PO BID 14 days Aspirin 81 mg PO daily Clopidogrel 75 mg PO daily Continue home medications as previously prescribed (including those for MDS and other chronic conditions). Ichthyologist(s): Dr. Harvinder Mckeon, Infectious disease Dr. Hubert Simms, Time Clock Repairer Dr. Khoa Dean, Wound care Dr. Kyung Quintana, Cardiovascular surgeon Dr. Fide Coats, [employer] Procedure(s): [place] [id number] [place] [address] [id number] IMAGING REPORT Signed PATIENT: CALEB REINA MR#: [id number] : 1955 SEX: M AGE: 69 LOCATION: [facility] ORDER 1323 STATUS: REG ER REPORT#: [id number] SERVICE 132 REASON: infection ORDERING PHYSICIAN: PATRIC MATUTE MD PROCEDURE: FT 3VW LT - FOOT COMP 3+VWS LT EXAM: CR left foot, 3 View. CLINICAL HISTORY: infection COMPARISON: None provided. FINDINGS: BONES: No acute fracture or aggressive appearing osseous lesion. JOINTS: Mild degenerative joint disease changes first metatarsal phalangeal joint no dislocation. SOFT TISSUES: Dorsal soft tissue swelling IMPRESSION: 1. No acute osseous injury. 2. Mild degenerative joint disease of the first metatarsophalangeal joint. 3. Dorsal soft tissue swelling. /[place] DICTATED BY: FARHAT ROBERTSON MD DATE: 02/19/251630 ELECTRONICALLY SIGNED BY: FARHAT ROBERTSON MD DATE: 02/19/251630 [place] [address] [id number] IMAGING REPORT Signed PATIENT: CALEB REINA MR#: [id number] : 1955 SEX: M AGE: 69 LOCATION: [facility] ORDER 36 STATUS: ADM IN REPORT#: [id number] SERVICE 163 REASON: check PAD ORDERING PHYSICIAN: TORSTEN BONILLA PROCEDURE: ART B LE - US ARTERIAL BILAT LOW EXT DUPL EXAMINATION: DUPLEX ULTRASOUND EXAMINATION OF THE BILATERAL LOWER EXTREMITY ARTERIES. CLINICAL HISTORY: Check PAD. COMPARISON: None. FINDINGS: Peak systolic velocities within the right lower arteries are as follows: Common femoral artery: 62 cm/s. Superficial femoral artery: 22 cm/s at mid and 22 cm/s at distal segments. No flow at proximal segment. Popliteal artery: 44 cm/s at proximal and 30 cm/s at distal segments. Posterior tibial artery: 27 cm/s. Anterior tibial artery: 31 cm/s. Dorsalis pedis artery: 43 cm/s. The right lower limb arteries demonstrate biphasic to monophasic waveforms in all arteries except the proximal superficial femoral artery which demonstrate no flow. Peak systolic velocities within the left lower arteries are as follows: Common femoral artery: 76 cm/s. Superficial femoral artery: 55 cm/s at proximal, 247 cm/s at mid, and 68 cm/s at distal segments. Popliteal artery: 75 cm/s at proximal and 72 cm/s at distal segments. Posterior tibial artery: 101 cm/s. Anterior tibial artery: 36 cm/s. Dorsalis pedis artery: 70 cm/s. The left lower limb arteries demonstrate biphasic to monophasic waveforms in all arteries except the distal superficial femoral artery which demonstrates triphasic waveform. There is intimal wall thickening in both the lower limb arteries. There is a calcified plaque in the left mid superficial femoral artery causing about 60% to 70% diameter stenosis. There is raised velocity in the left mid superficial femoral artery. IMPRESSION: Mild intimal wall thickening in both the lower limb arteries. No flow in the right proximal superficial femoral artery. Remainder of the right lower limb arteries demonstrate biphasic to monophasic waveforms in all arteries. The left lower limb arteries demonstrate biphasic to monophasic waveforms in all arteries except the distal superficial femoral artery which demonstrates triphasic waveform. Calcified plaque in the left mid superficial femoral artery causing about 60% to 70% diameter stenosis. Raised velocity in the left mid superficial femoral artery. Recommend CT/MR angiogram. /[place] DICTATED BY: CLEM FRIEND MD DATE: 02/20/25854 ELECTRONICALLY SIGNED BY: CLEM FRIEND MD DATE: 02/20/25854 [place] [address] [address] IMAGING REPORT Signed PATIENT: CALEB REINA MR#: [id number] : 1955 SEX: M AGE: 69 LOCATION: [facility] ORDER 1637 [facility]: [facility] REPORT#: [id number] SERVICE 163 REASON: check PAD ORDERING PHYSICIAN: TORSTEN BONILLA PROCEDURE: VENOUS UNI - US VENOUS DOPPLER UNILATERAL EXAM: US for Deep Venous Thrombosis, leftLower Extremity. CLINICAL HISTORY: Leg Pain and Swelling TECHNIQUE: Real-time ultrasound scan of the veins of the left lower extremity with color Doppler flow, spectral waveform analysis and compression. COMPARISON: None provided. FINDINGS: DEEP VEINS: The common femoral, superficial femoral, and popliteal veins are echolucent and compressible. There is normal color Doppler flow throughout. The visualized calf veins appear patent. SOFT TISSUES: No popliteal fossa cyst or other abnormalities. IMPRESSION: No deep venous thrombosis evident on left lower extremity examination. /[place] DICTATED BY: FARHAT ROBERTSON MD DATE: 02/19/251933 ELECTRONICALLY SIGNED BY: FARHAT ROBERTSON MD DATE: 02/19/251933 [place] [id number] IMAGING REPORT Signed PATIENT: CALEB REINA MR#: [id number] : 1955 SEX: M AGE: 69 LOCATION: [facility] ORDER 1150 STATUS: ADM IN REPORT#: [id number] SERVICE 1145 REASON: R/O Osteomyelitis of left 5th toe ORDERING PHYSICIAN: AMBROSIO WILLAMS MD PROCEDURE: FT LT WWO - MR FOOT LEFT WWO EXAMINATION: MRI OF THE LEFT FOOT. CLINICAL HISTORY: Suspected left fifth toe osteomyelitis. COMPARISON: None available. TECHNIQUE: Multiplanar, multisequence MR images of the left foot without and with intravenous contrast were obtained. FINDINGS: There is a cutaneous irregularity over the fifth toe with moderate diffuse dorsal and plantar subcutaneous edema. The distal phalanx of the fifth toe demonstrates moderate marrow edema and possible cortical erosion consistent with osteomyelitis. No discrete drainable collection is identified. The intrinsic plantar musculature shows mild to moderate edema. Moderate diffuse dorsal forefoot and midfoot subcutaneous edema. The second and third metatarsal heads are flattened with associated subchondral fractures, indicative of Freiberg disease. Joint spaces are preserved. Visualized extensor and flexor tendons are normal in course and morphology without evidence of tenosynovitis. IMPRESSION: 1. Findings concerning for osteomyelitis of the left fifth toe distal phalanx with moderate subcutaneous edema. 2. The second and third metatarsal heads are flattened with associated subchondral fractures, indicative of Freiberg disease. 3. The intrinsic plantar musculature shows mild to moderate edema. Moderate diffuse dorsal forefoot and midfoot subcutaneous edema. No discrete drainable collection. Dedicated local ultrasound is requested to rule out cellulitis. /[place] DICTATED BY: BUCKY HINOJOSA Jr., MD DATE: 02/27/251629 ELECTRONICALLY SIGNED BY: BUCKY HINOJOSA Jr., MD DATE: 02/27/251629 [place] [address] IMAGING REPORT Signed PATIENT: CALEB REINA MR#: [id number] : 1955 SEX: M AGE: 69 LOCATION: [facility] ORDER 1130 STATUS: ADM IN REPORT#: [id number] SERVICE 1125 REASON: R/o post sheridan angiogram complication at the site of right groin ORDERING PHYSICIAN: TEDDY BURNS MD PROCEDURE: SOFT GROIN - US SOFT TISSUE GROIN EXAMINATION: SOFT TISSUE ULTRASOUND OF THE RIGHT GROIN. CLINICAL HISTORY: To rule out right groin hematoma. COMPARISON: None. TECHNIQUE: Transverse and longitudinal images were obtained in the right groin. FINDINGS: There are no collections or hematoma. The velocity in the common femoral artery is 165 cm/s. The common femoral vein is patent. No pseudoaneurysm. IMPRESSION: No hematoma or pseudoaneurysm in the right groin. /[place] DICTATED BY: CLEM FRIEND MD DATE: 03/01/25750 ELECTRONICALLY SIGNED BY: CLEM FRIEND MD DATE: 03/01/25750 RUN DATE: 03/02/25 [facility] PAGE 1 RUN TIME: [address] [address] Department of Laboratories CLIA # [id number] Instrument Setter: Octaviano Betts DO Specimen Report PATIENT: CALEB REINA ACCT: [id number] LOC: [facility] U: [id number] AGE/SX: 69/M ROOM: [facility] RE02/19/[address]: CARMEN PETER MD : 1955 BED: 1 DIS: STATUS: ADM IN TLOC: SPEC: [id number] ANDREA: 02/27/25 STATUS: COMP REQ: [id number] RECD: 02/27/[address]: KHOA DEAN DPM SOURCE: TOE ENTR: 02/27/[address]: HARVINDER CHAPMAN MD SPDESC: LEFT BIG HUBERT SIMMS MD, CHRISTIAN E MD TORKELSON, NINA L YARDLEY, DAVID E MD ORDERED: GS, WINNIE CULTURE, AEROBIC CULTURE COMMENTS: Has specimen been collected/obtained? Y Specimen Comment: FIFTH TOE LEFT FOOT Has specimen been collected/obtained? Y Specimen Comment: FIFTH TOE LEFT FOOT Has specimen been collected/obtained? Y Specimen Comment: FIFTH TOE LEFT FOOT Has specimen been collected/obtained? Y Specimen Comment: FIFTH TOE LEFT FOOT Has specimen been collected/obtained? Y Specimen Comment: FIFTH TOE LEFT FOOT Has specimen been collected/obtained? Y Specimen Comment: FIFTH TOE LEFT FOOT Has specimen been collected/obtained? Y Specimen Comment: FIFTH TOE LEFT FOOT Has specimen been collected/obtained? Y Specimen Comment: FIFTH TOE LEFT FOOT Has specimen been collected/obtained? Y Specimen Comment: FIFTH TOE LEFT FOOT Has specimen been collected/obtained? Y Specimen Comment: FIFTH TOE LEFT FOOT Has specimen been collected/obtained? Y Specimen Comment: FIFTH TOE LEFT FOOT Has specimen been collected/obtained? Y Specimen Comment: FIFTH TOE LEFT FOOT Has specimen been collected/obtained? Y Specimen Comment: FIFTH TOE LEFT FOOT Has specimen been collected/obtained? Y Specimen Comment: FIFTH TOE LEFT FOOT Has specimen been collected/obtained? Y Specimen Comment: FIFTH TOE LEFT FOOT Has specimen been collected/obtained? Y Specimen Comment: FIFTH TOE LEFT FOOT Has specimen been collected/obtained? Y Specimen Comment: FIFTH TOE LEFT FOOT Has specimen been collected/obtained? Y Specimen Comment: FIFTH TOE LEFT FOOT Has specimen been collected/obtained? Y Specimen Comment: FIFTH TOE LEFT FOOT Has specimen been collected/obtained? Y Specimen Comment: FIFTH TOE LEFT FOOT CONTINUED ON NEXT PAGE RUN DATE: 03/02/25 [facility] PAGE 2 RUN TIME: 9023 9507 [place] [address] Department of Laboratories [facility] # [id number] Instrument Setter: Octaviano Betts DO Specimen Report SPEC: [id number] PATIENT: CALEB REINA [id number] (Continued) Has specimen been collected/obtained? Y Specimen Comment: FIFTH TOE LEFT FOOT Has specimen been collected/obtained? Y Specimen Comment: FIFTH TOE LEFT FOOT Has specimen been collected/obtained? Y Specimen Comment: FIFTH TOE LEFT FOOT Has specimen been collected/obtained? Y Specimen Comment: FIFTH TOE LEFT FOOT Has specimen been collected/obtained? Y Specimen Comment: FIFTH TOE LEFT FOOT Has specimen been collected/obtained? Y Specimen Comment: FIFTH TOE LEFT FOOT Has specimen been collected/obtained? Y Specimen Comment: FIFTH TOE LEFT FOOT Procedure Result Dhruv Date-Time GRAM STAIN ONLY Final 02/27/25 GRAM STAIN: RARE WBC NO ORGANISMS SEEN ANAEROBIC CULTURE Final 03/02/25 [facility]ONY DESCRIPTION: REPORT 1: NO ANAEROBES AT 24-35 HOURS; STUDIES TO CONTINUE REPORT 2: NO ANAEROBES AT 48-59 HOURS; STUDIES TO CONTINUE REPORT 3: NO ANAEROBES AT 72-96 HOURS Test(s) performed by: [facility] [address] [place] [address] AEROBIC CULTURE Final 03/02/25 [facility]RL [facility]ONY DESCRIPTION: REPORT 1: 1+ GRAM NEGATIVE RODS IDENTIFICATION AND SENSITIVITY TO FOLLOW REPORT 2: SLOW-GROWER; RESULTS PENDING REPORT 3: NO FURTHER WORK-UP DONE AEROMONAS HYDROPHILA GROUP KLEBSIELLA OXYTOCA CONTINUED ON NEXT PAGE RUN DATE: 03/02/25 [facility] PAGE 3 RUN TIME: [address] [address] Department of Laboratories CLVIJI # [id number] Instrument Setter: Octaviano Betts DO Specimen Report SPEC: [id number] PATIENT: CALEB REINA [id number] (Continued) Procedure Result Dhruv Date-Time AEROBIC CULTURE Final (continued) 10 AER HYDROP K OXYTOCA M.I.C. RX M.I.C. RX --------- ---- --------- ---- AZTREONAM <=4 S <=4 S CEFAZOLIN 16 R CEFTAZIDIME/AVIBACTAM <=8 S CEFTRIAXONE <=1 S <=1 S GENTAMICIN <=2 S LEVOFLOXACIN <=0.5 S AMPICILLIN/SULBACTAM >16/8 R <=8/4 S MEROPENEM <=1 S PIPERACILLIN/TAZOBACTAM <=8 S <=8 S TRIMETHOPRIM/SUFLAMETHOXAZOLE <=2/38 S <=2/38 S - @ [facility] Test Performed at: [facility] [address], [place], [place] Medical Computer Help [employer]k Specialist: Jw Brumfield D.O. RUN DATE: 02/24/25 [facility] PAGE 1 RUN TIME: [address] [address] Department of Laboratories CLIA # [id number] Instrument Setter: Octaviano Betts DO Specimen Report PATIENT: CALEB REINA ACCT: [id number] LOC: [facility] U: [id number] AGE/SX: 69/M ROOM: 332 RE02/19/[address]: CARMEN PETER MD : 1955 BED: 1 DIS: STATUS: ADM IN TLOC: SPEC: [id number] ANDREA: 02/19/25 STATUS: COMP REQ: [id number] RECD: 02/19/[address] [facility] DR: PATRIC MATUTE MD SOURCE: BLOOD ENTR: 02/19/25 [facility] DR: VIVEK GOULD [facility]: ORDERED: BLOOD CULTURE COMMENTS: What is the Source? BLOOD Procedure Result Dhruv Date-Time -------- ---- BLOOD CULT Final 02/24/25 NO GROWTH AFTER 5 DAYS Procedure Note: Peripheral Angiogram Date/Time of Service: 02/25/2025 Referring Physician: Dr. Coats Procedures Performed: Lower abdominal aortogram, peripheral angiogram with lower extremity arterial runoff, balloon lithotripsy and drug coated balloon angioplasty of the mid and distal left superficial femoral artery, balloon angioplasty, balloon lithotripsy, and drug coated balloon angioplasty of the distal left popliteal artery and left tibioperoneal artery, balloon angioplasty and balloon lithotripsy of the distal left peroneal artery and balloon lithotripsy of the proximal, mid, and distal left posterior tibial artery and AARON placement in the mid and distal left posterior tibial artery Indications for Procedure: PAD, [place] category 5 symptoms (left lower extremity) Nonhealing ulcer in the 5th digit of the left foot Description of Procedure: [After informed consent was obtained the patient was prepped and draped in the usual sterile fashion a 6 Macanese arterial sheath with a hemostatic valve was inserted into the right common femoral artery using a modified Salinger technique on the first past front wall puncture. A 5 Macanese Omni Flush catheter was then advanced over a soft angled Glidewire into the abdominal aorta and a lower abdominal aortogram with runoff was obtained. The findings are listed below. The Omni flush catheter was then advanced to the left common femoral artery in the left lower extremity arteriogram was obtained. The findings are listed below.] Findings: Lower Abdominal aorta: patent Right common iliac artery: patent Right external iliac artery: patent Right internal iliac artery: patent Right common femoral artery: patent Right profunda artery: patent Left common iliac artery: patent Left external iliac artery: patent Left internal iliac artery: patent Left common femoral artery: patent Left profunda artery: patent Left superficial femoral artery: 80% stenosis in the mid segment of the artery, diffuse 80% stenosis in the distal segment of the artery Left popliteal artery: 90% stenosis in the distal segment of the artery Left anterior tibial artery: 100% stenosis (RECONCILER = 200 mm) in the proximal segment of the artery. The artery reconstitutes distally via collateral blood flow. Left tibioperoneal artery: 90% stenosis Left peroneal artery: 100% stenosis (RECONCILER) in the distal segment of the artery. Left posterior tibial artery: 80% stenosis in the proximal segments of the fang ry. Diffuse 80% stenosis in the mid and distal segments of the artery. Left pedal arch: Incomplete, with slow single-vessel runoff supplying the posterior and anterior segment of the left pedal arch Intervention: After reviewing the above-mentioned findings the decision was made to intervene on the left superficial femoral artery, the left popliteal artery, the left tibioperoneal artery, the left peroneal artery, in the left posterior tibial artery. We subsequently advanced the soft angled Glidewire into the Omni flush catheter and advanced it to the left popliteal artery. We then removed the Omni flush catheter and exchanged the short six Macanese arterial sheath for a 65 cm six Macanese destination arterial sheath, which was then placed in the mid left superficial femoral artery. We then administered heparin 75 units/kg x1 dose, clopidogrel 300 mg x 1 dose, and aspirin 324 mg x 1 dose. We then advanced a 0.014 whisper guidewire and 0.014 quick cross catheter across the areas stenosis into the distal left peroneal artery. We then removed the quick cross catheter and performed balloon angioplasty (2.0 x 60 mm) and balloon lithotripsy (shockwave 3.0 x 80 mm) in the distal left peroneal artery. We then advanced a 0.014 command 18 guidewire across the areas stenosis and into the distal left posterior tibial artery. We then performed balloon angioplasty (3.0 x 20 mm) and drug coated balloon angioplasty (Medtronic inpact 4.0 x 40 mm) in the left tibioperoneal artery and distal left popliteal artery. We then performed balloon lithotripsy (shockwave 3.0 x 80 mm) in the proximal, mid, and distal left posterior tibial artery. We then performed successful AARON placement (Esprit 3.75 x 38 mm) in the mid left posterior tibial artery and (Esprit 3.5 x 38 mm, 3.0 x 28 mm and 3.0 x 38 mm) in the distal left posterior tibial artery. We then performed successful balloon lithotripsy (shockwave 6.0 x 80 mm) and drug coated balloon angioplasty (Medtronic inpact 6.0 x 150 mm) in the mid and distal left superficial femoral artery. Repeat angiography then revealed widely patent arteries without significant dissection or perforation, and brisk two- vessel runoff supplying the left foot/pedal arch. The guidewires and six Macanese 65 cm destination arterial sheath were then removed and the arteriotomy site in the right common femoral artery was successfully closed using a six Macanese Ang io-Seal device. The patient tolerated the procedure well and without issue. Estimated Blood Loss: [80]mL Complications: [ None] Conclusion: 1. PAD, [place] category five symptoms (left lower extremity), 80% stenosis in the mid and distal left superficial femoral artery status post successful treatment with balloon lithotripsy and drug coated balloon angioplasty, 90% stenosis in the distal left popliteal artery and left tibioperoneal artery status post successful treatment with balloon angioplasty and drug coated balloon angioplasty, 100% stenosis in the distal left peroneal artery status post successful treatment with balloon angioplasty and balloon lithotripsy, and 80% stenosis in the proximal left posterior tibial artery status post successful treatment with balloon lithotripsy, 80% stenosis in the mid and distal left posterior tibial artery status post successful treatment with balloon lithotripsy and AARON placement (Esprit 3.75 x 38 mm, 3.5 x 38 mm, 3.0 x 28 mm, 3.0 x 38 mm), resulting in patent arteries, without dissection, or perforation, and brisk two-vessel runoff supplying the left foot/pedal arch. 2. Residual PAD, 100% stenosis in the proximal left anterior tibial artery 3. Nonhealing ulcer in the 5th digit of the left foot Recommendations/Instructions: 1. Goal-directed medical therapy. 2. Continue aspirin 81 mg daily and clopidogrel 75 mg daily. 3. Groin precautions 4. 4 hours of bedrest 5. Start NS at 100 mL/hour x 3 hours 6. We will order TCOMs of the left foot to assess wound healing potential after undergoing the above-mentioned procedure. 7. Continue aggressive IV antibiotics and wound care KYUNG QUINTANA MD Feb 25, 2025 18:14 Electronically Signed by: KYUNG QUINTNAA MD02/25/254 Electronically Co-Signed by: Assessment/Plan: ASSESSMENT: Gangrene of the left 5th toe due to possible vascular compromise, POA status post amputation Sepsis secondary to infection of the gangrene Myelodysplastic syndrome on chemotherapy (immunocompromised state), POA Acute gout flare (less likely given necrosis and trauma history), POA Acute kidney injury, POA, resolved Anemia, POA Peripheral artery disease, status post balloon lithotripsy and angioplasty Admission Date: 02/19/25 Discharge Date: 03/03/25 Discharge Instructions: Keep the surgical site clean and dry; monitor for redness, drainage, or swelling. Avoid bearing weight on the affected foot until cleared by the surgeon. Take antibiotics exactly as prescribed and complete the full 14-day course. Continue dual antiplatelet therapy (Aspirin and Clopidogrel). Maintain adequate hydration and nutrition to promote wound healing. Seek immediate medical attention for fever, chills, purulent discharge, or worsening pain. Follow-Up Plan: Primary Care Provider: within 1 week for overall post-discharge evaluation. Infectious Disease: within 1 week for antibiotic management and wound assessment. Podiatry / Surgery (Dr. Dean): as scheduled for postoperative wound check. Oncology (Dr. Bedoya): continue routine follow-up for MDS management. Disposition Condition at Discharge: Stable, afebrile, hemodynamically stable, pain controlled. Disposition: Home Education: Discharge plan discussed in detail with the patient; understanding was verbalized and all questions were answered. Home Medications: Active Scripts Gabapentin (Gabapentin) 100 Mg Capsule, 1 CAP PO TID for 10 Days, #30 CAP 0 Refills Prov:TEDDY BURNS MD 03/03/25 Acetaminophen with Codeine (Acetaminophen-Cod #3 Tablet) 300 Mg-30 Mg Tablet, 1 TAB PO Q6HPRN PRN for pain for 5 Days, #20 TAB 0 Refills Prov:MAGUI BREWER MD 03/03/25 Aspirin (ASPIRIN 81MG CHEW TAB) 81 Mg Tab.chew, 81 MG PO DAILY, #90 TAB.CHEW Prov:FIDE COATS MD 02/26/25 Clopidogrel Bisulfate (Plavix) 75 Mg Tablet, 75 MG PO DAILY, #90 TAB Prov:FIDE COATS MD 02/26/25 Atorvastatin Calcium (LIPITOR) 40 Mg Tablet, 40 MG PO HS, #90 TAB Prov:FIDE COATS MD 02/26/25 Lisinopril (Lisinopril) 10 Mg Tablet, 10 MG PO DAILY, #30 TAB 0 Refills Prov:TORSTEN BONILLA AGACNP 03/15/24 Reported Medications Thiamine Mononitrate (Vitamin B-1) 100 Mg Tablet, 250 MG PO BID, TAB 02/23/25 Cyanocobalamin (Vitamin B-12) (Vitamin B-12) 1,000 Mcg Capsule, 1 CAP PO DAILY for 30 Days, #30 CAP 0 Refills 02/23/25 Vitamin B Complex (Vitamin B Complex) 1 Each Capsule, 1 CAP PO DAILY for 30 Days, #60 CAP 0 Refills 02/23/25 Prednisone (Prednisone) 10 Mg Tab.ds.pk, 1 TAB PO DAILY for 5 Days, #21 TAB 0 Refills 02/23/25 Allopurinol (Allopurinol) 300 Mg Tablet, 1 TAB PO DAILY for 30 Days, #30 TAB 0 Refills 02/19/25 New Medications: Acetaminophen with Codeine (Acetaminophen-Cod #3 Tablet) 300 Mg-30 Mg Tablet 1 TAB PO Q6HPRN PRN for pain for 5 Days, #20 TAB 0 Refills Gabapentin (Gabapentin) 100 Mg Capsule 1 CAP PO TID for 10 Days, #30 CAP 0 Refills Aspirin (Aspirin 81MG Chew Tab) 81 Mg Tab.chew 81 MG PO DAILY, #90 TAB.CHEW Atorvastatin Calcium (Lipitor) 40 Mg Tablet 40 MG PO HS, #90 TAB Clopidogrel Bisulfate (Plavix) 75 Mg Tablet 75 MG PO DAILY, #90 TAB Continued Medications: Allopurinol (Allopurinol) 300 Mg Tablet 1 TAB PO DAILY for 30 Days, #30 TAB 0 Refills Cyanocobalamin (Vitamin B-12) (Vitamin B-12) 1,000 Mcg Capsule 1 CAP PO DAILY for 30 Days, #30 CAP 0 Refills Lisinopril (Lisinopril) 10 Mg Tablet 10 MG PO DAILY, #30 TAB 0 Refills Prednisone (Prednisone) 10 Mg Tab.ds.pk 1 TAB PO DAILY for 5 Days, #21 TAB 0 Refills Thiamine Mononitrate (Vitamin B-1) 100 Mg Tablet 250 MG PO BID, TAB Vitamin B Complex (Vitamin B Complex) 1 Each Capsule 1 CAP PO DAILY for 30 Days, #60 CAP 0 Refills Time spent arranging discharge: 31-60 minutes ATTESTATION BY PHYSICIAN I have seen and examined the patient. I reviewed the documentation, medical decision making, and treatment plan as noted by the resident physician above. I agree with the findings and plan of care. MAGUI BREWER MD, MANALI MD Mar 03, 2025 14:00
--- NOTE | 2025-03-03 14:30 | NUR ---
PT sitting in bed A&Ox4 able to make needs known, @ bedside. Denies pain or discomfort. Wound dressing changed. Educated PT and on wound care and dressing change. Discharge instructions given written and verbally in [place] language, PT and verbally acknowledged understanding. I.V. removed intact. Written prescription for Vantin 200mg given to PT. PT escorted to POV via WC by CLEANING CUSTODIAN w/o complications.
[2025-03-04] MEDS ORDERED: Solu-medROL 40MG VIAL IVP SCH (09:00)
== END 2025-03-03 14:30 | disposition home or self-care (01) | DRG 854 ==
LOC: EDH 13:02 → EDHIP 15:35 → 3AH 23:30
PROVIDERS: ADMIT Internal Medicine; ATTEND Internal Medicine
PROC: 047L3Z1 Dilation of Left Femoral Artery using Drug-Coated Balloon, Percutaneous Approach (ICD-10-PCS; principal; 2025-02-25)
PROC: 047N3Z1 Dilation of Left Popliteal Artery using Drug-Coated Balloon, Percutaneous Approach (ICD-10-PCS; 2025-02-25)
PROC: 047U3Z1 Dilation of Left Peroneal Artery using Drug-Coated Balloon, Percutaneous Approach (ICD-10-PCS; 2025-02-25)
PROC: 04FL3ZZ Fragmentation of Left Femoral Artery, Percutaneous Approach (ICD-10-PCS; 2025-02-25)
PROC: 04FS3ZZ Fragmentation of Left Posterior Tibial Artery, Percutaneous Approach (ICD-10-PCS; 2025-02-25)
PROC: 04FN3ZZ Fragmentation of Left Popliteal Artery, Percutaneous Approach (ICD-10-PCS; 2025-02-25)
PROC: 04FU3ZZ Fragmentation of Left Peroneal Artery, Percutaneous Approach (ICD-10-PCS; 2025-02-25)
PROC: 047S37Z Dilation of Left Posterior Tibial Artery with Four or More Drug-eluting Intraluminal Devices, Percutaneous Approach (ICD-10-PCS; 2025-02-25)
PROC: B4101ZZ Fluoroscopy of Abdominal Aorta using Low Osmolar Contrast (ICD-10-PCS; 2025-02-25)
PROC: B41G1ZZ Fluoroscopy of Left Lower Extremity Arteries using Low Osmolar Contrast (ICD-10-PCS; 2025-02-25)
PROC: 0Y6Y0Z0 Detachment at Left 5th Toe, Complete, Open Approach (ICD-10-PCS; 2025-02-27)
DX: A41.9 Sepsis, unspecified organism (principal); D84.821 Immunodeficiency due to drugs; E11.52 Type 2 diabetes mellitus with diabetic peripheral angiopathy with gangrene; L03.116 Cellulitis of left lower limb; M86.8X7 Other osteomyelitis, ankle and foot; N17.9 Acute kidney failure, unspecified; D46.9 Myelodysplastic syndrome, unspecified; L03.032 Cellulitis of left toe; M10.9 Gout, unspecified; I10 Essential (primary) hypertension; T45.1X5A Adverse effect of antineoplastic and immunosuppressive drugs, initial encounter; T38.0X5A Adverse effect of glucocorticoids and synthetic analogues, initial encounter; K59.00 Constipation, unspecified; E66.9 Obesity, unspecified; E11.69 Type 2 diabetes mellitus with other specified complication; Z79.02 Long term (current) use of antithrombotics/antiplatelets; Z87.891 Personal history of nicotine dependence; Z91.041 Radiographic dye allergy status; Z79.82 Long term (current) use of aspirin; Z79.899 Other long term (current) drug therapy; Z68.28 Body mass index [BMI] 28.0-28.9, adult
CPT/HCPCS: 36415; 37228; 73630; 73720; 75716; 76882; 80048; 80051; 80053; 80061; 80076; 80202; 81001; 82570; 82607; 82728; 82948; 83036; 83605; 83615; 83735; 84145; 84484; 84550; 85025; 85027; 85060; 85347; 85610; 85651; 85730; 86140; 87040; 87070; 87076; 87086; 87186; 87205; 88184; 88185; 88189; 88305; 88311; 93925; 93971; 99156; 99157; 99285; C1760; C1769; C1893; C1894; C9764; C9773; G0378; J0360; J1171; J1200; J1644; J2250; J2270; J2405; J2543; J2704; J2919; J3010; J3490; Q9967; A4222; A4223; A4649; A9575; C1725; C1874; C1887; C2623; J0665; J3375